=== PATIENT | female | born 1975 | race Caucasian/White ===

== ENCOUNTER 2022-10-15 07:36 | Outpatient (CLI) | payer BC, SELFPAY ==
--- NOTE | 2022-10-15 07:44 | MM_ITS ---
WS: [id number] Exam: [id number] Date/Time of Exam: 10/15/2022 8:02 AM Reason For Exam: SCREENING VIEWS: MLO and CC views both breasts. 3D digital tomosynthesis is also included in this exam. No prior exams. Findings: There was no sign of mass, architectural distortion or suspicious calcification in either breast. Th e breasts are fatty. MM/[place] [id number] Impression: BI-RADS: 1-Negative FOLLOW-UP: 1 Year Follow-up This mammogram was also analyzed by the Computer Aided Detection System R2 Imag e Crematory Attendant.
== END 2022-10-15 07:37 | disposition home or self-care (01) ==
LOC: RAD 07:37
PROVIDERS: PCP Physician Assistant; Visit Provider Physician Assistant
DX: Z12.31 Encounter for screening mammogram for malignant neoplasm of breast (principal)
CPT/HCPCS: 77063; 77067

== ENCOUNTER 2022-11-07 09:22 | Inpatient (IN) | payer BC, SELFPAY ==
[2022-11-07] VITALS (51 sets, daily range): BP systolic 121–167; BP diastolic 80–128; PULSE 0–113; RESP 13–32; TEMP 36.7; O2SAT 88–99; BMI 41.5
--- NOTE | 2022-11-07 09:31 | XACV_ITS ---
Exam Room: [place] [address] Ht: 170 cm Wt: 136 kg BSA: 2.61 m2 Gender: Female : 1975 Exam Priority: Routine Indication(s): - ST changes Procedure(s): Procedure Description: Diagnostic procedure Procedure Description: PCI procedure Procedure Description: Drug Eluting Coronary Stent Procedure Description: PTCA Procedure Description: Coronary Thrombectomy Procedure Description: Miscellaneous Procedure Description: ACT Procedure Description[facility]; Diagnostic Cath Status: Emergency PCI Status: Emergency PCI Indication: Immediate PCI for STEMI Interventional Findings * Percutaneous intervention left main was engaged with CLS guide with the help of run-through wire we were able to cross the lesion. Multiple balloon angioplasty using 2.0x15 Trek balloon was used despite of that were not able to open up the vessel. Pronto catheter was utilized for manual thrombectomy which remained unsuccessful, we then took penumbra CAT 6 which finally cleared the vessel from thrombus. 3.0 x 20 mm trek balloon was then used followed by a 4.0 x 22 mm [place] drug-eluting stent at nominal HARRY postdilated with 4.5 x 12 mm noncompliant Euphora balloon. Excellent angiographic result with LAUREN-3 flow was restored.. * IVUS was performed post stent deployment to assess apposition and optimization of the stent. Stent was noted to be well opposed. Conclusions 1. 46-year-old female presented with ST elevation MT of the anterior wall. She was taken to the Singing Telegram Performer. She was noted to have 100% ostial occluded LAD#1 Left main normal#2 100% ostial occluded LAD with LAUREN 0 flow#3 Left circumflex nondominant with luminal irregularities no significant stenosis#4 RCA is a dominant vessel with luminal irregularities without significant stenosis. Recommendations * Lifestyle modificationTobacco cessationObesity managementContinue dual antiplatelet therapy for at least 1 yearPatient will be started on guideline medical therapy for myocardial infarction over next 24 hours.. Interventional RX Recommendation: PCI w/o planned CABG Diagnostic RX Recommendation: PCI w/o planned CABG Anticoagulation: Heparin Pressures Phase:Rest AO : 156 / 122 ( 134 ) @ 10:52:00 AM 134 / 93 ( 117 ) @ 10:59:00 AM 118 / 101 ( 114 ) @ 11:17:00 AM 125 / 104 ( 114 ) @ 11:19:00 AM 118 / 105 ( 110 ) @ 11:24:00 AM 120 / 94 ( 105 ) @ 11:46:00 AM Clinical Evaluation EBL: 5mL-10mL Procedural Details Pre-Procedure Time Out. Identified patient by full name and date of as verbalized by the patient/guarantor. Does the consent match the physician's order: N/A Emergent; Informed Consent not obtained due to time critical life threat. Accurate & Complete Informed Consent: N/A Emergent; Informed Consent not obtained due to time critical life threat. Inpatient/Outpatient History & Physical on Chart: N/A Emergent; Informed Consent not obtained due to time critical life threat. If H&P is completed, is and addenduem needed: N/A Emergent; Informed Consent not obtained due to time critical life threat; If yes, is the addendum complete: N/A Emergent; Informed Consent not obtained due to time critical life threat. Visualize and Verify Site with Patient/Guarantor: N/A. Relevant Radiology Images available: N/A. Pre-op teaching completed and patient verbalized understanding. The risks, benefits, and alternatives of sedation and/or procedure were discussed by physician. The patient agrees to continue. Procedure started. [facility] Clinical Fraility Score: 3: Managing Well. Singing Telegram Performer Indications: Worsening Angina. Chest Pain Symptom Assessment: Typical Angina Symptoms. Correct patient, site and procedure confirmed by cath team. Correct patient, site and procedure confirmed by cath team. Current diagnosis: STEMI. PERRLA. Strong, equal hand creative guru bilaterally. Lungs clear x 5 lobes. IV Site on Arrival: 18 gauge in the left anticubital. IV Fluids: 0.9% NaCl at KVO. 0 mL infused prior to laborer hide house. Pre Procedural Pulses: right radial was 2+. Pre Procedural Pulses: bilateral dorsalis pedis was 2+. Oxygen started at 2liters/min via nasal canula. right groin was prepped with chloroprep then draped in the usual sterile fashion. right radial was prepped with chloroprep then draped in the usual sterile fashion. Physician notified. Baseline sample Acquired. HR: 77 BPM. Physician arrived. Physician scrubbed in. Immediate Pre-Procedure Time Out. Correct Patient: Yes; Correct Procedure: Yes; Correct Site: Yes; Correct Patient Position: Yes; Correct Supplies: Yes; Dried Flammable Prep: Yes; Blood Products Available: N/A;. Admit Source: Emergency department. Lidocaine 1% infiltrated to the right radial. Arterial access obtained. 6 tajik XB 3.5 guide catheter was inserted over the wire. AP Pads applied to patient chest. Multiple views taken of left coronary artery. Runthrough guidewire was advanced through the guide catheter to lesion in the prox LAD. Balloon inserted to lesion in the prox LAD. Inflation number : 1 A AB MINI TREK 2.00X15 RX BALLOON was prepped and advanced across the Prox LAD , then inflated to 12 HARRY for 0:16 seconds. Inflation number: 2 The AB MINI TREK 2.00X15 RX BALLOON was reinflated across the Prox LAD, to 20 HARRY for 0:16 seconds. Inflation number: 3 The AB MINI TREK 2.00X15 RX BALLOON was reinflated across the Prox LAD, to 20 HARRY for 0:15 seconds. Results checked. Balloon out. Manual thrombectomy catheter inserted over to the wire. Manual thrombectomy performed. Pronto aspiration catheter removed. Cat RX aspiration catheter inserted. Mechanical aspiration performed. Thrombectomy catheter removed over the wire. Results checked. ACT drawn. Results 314 seconds. Therapeutic limits - pre-heparin administration 90-150 seconds and monitoring heparin during a vascular procedure >250 seconds. Balloon inserted to lesion in the prox LAD. Inflation number : 4 A AB TREK 3.00X20 RX BALLOON was prepped and advanced across the Prox LAD , then inflated to 14 HARRY for 0:17 seconds. Inflation number: 5 The AB TREK 3.00X20 RX BALLOON was reinflated across the Prox LAD, to 14 HARRY for 0:14 seconds. Balloon out. Stent inserted to lesion in the prox LAD. Inflation Number : 6 A MDT R DEMI 4.0X22 SILVIA -Lot Number# [id number] Exp 01/01/2024 was prepped and advanced across the Prox LAD. The stent was deployed at 14 HARRY for 0:37 seconds. Stent balloon out over wire. Balloon inserted to lesion in the prox LAD. Inflation number : 7 A MDT NC EUPHORA RX 4.29G58MB BALLOON was prepped and advanced across the Prox LAD , then inflated to 10 HARRY for 0:06 seconds. Inflation number: 8 The MDT NC EUPHORA RX 4.06E34PM BALLOON was reinflated across the Prox LAD, to 14 HARRY for 0:17 seconds. Inflation number: 9 The MDT NC EUPHORA RX 4.23Z88VO BALLOON was reinflated across the Prox LAD, to 12 HARRY for 0:22 seconds. Inflation number: 10 The MDT NC EUPHORA RX 4.91F85MT BALLOON was reinflated across the Prox LAD, to 10 HARRY for 0:20 seconds. Balloon out. Results checked. IVUS catheter inserted. IVUS run performed to Prox LAD. IVUS catheter removed. Results checked. Results checked. Results checked. Runthrough wire removed. Exchange wire inserted. Guide catheter removed. A 5 tajik JR4 catheter in over wire. Exchange wire removed. Multiple views taken of right coronary artery. Catheter out. ACT drawn. Results 203 seconds. Therapeutic limits - pre-heparin administration 90-150 seconds and monitoring heparin during a vascular procedure >250 seconds. A 5 tajik Angled Pig catheter in over wire. Pigtail catheter removed d/t spasm. A TR Band was successful obtaining hemostatsis at the Right Radial artery insertion site. Post Procedure: Pulses reassessed and unchanged. PERRLA. Strong, equal hand creative guru bilaterally. No VTE prophylaxis required. Medication's Wasted: Lidocaine 1% = 1 mL. Medication's Wasted: Nitro = 49.6 mg. Medication's Wasted: Heparin = 3000 u. Medication's Wasted: Other = Cardene 24.5 mg. Total IV fluids: 102 mL. Post-op diagnosis: STEMI, Severe Ostial LAD occlusion. Complications: none. Estimated blood loss: 5mL-10mL. Responsiveness - Normal response to verbal stimuli; alert and oriented, PERRLA. Airway - Unaffected, no intervention required; spontaneous ventilation. Circulation: W/N/L, pulses unchanged. Nausea/Vomiting: No. Procedure completed. Patient transferred by wheelchair to ICU. Current Diagnosis : STEMI. PCI Indication : Immediate PCI for STEMI. Vital chart was stopped. Procedure started. Access Site Site: Right Radial artery Sheath Size: 6 Fr Hemostasis Method: TR Band Hemostasis Success: Successful Procedure Medications Start: 9:43 AM Stop: 9:43 AM Medication: Versed Amount: 2 mg Route: I.V. Start: 9:43 AM Stop: 9:43 AM Medication: Fentanyl Amount: 50 mcg Route: I.V. Start: 9:45 AM Stop: 9:45 AM Medication: Zofran (ondansetron) Amount: 4 mg Route: I.V. Start: 9:47 AM Stop: 9:47 AM Medication: Versed Amount: 1 mg Route: I.V. Start: 9:47 AM Stop: 9:47 AM Medication: Fentanyl Amount: 25 mcg Route: I.V. Start: 9:51 AM Stop: 9:51 AM Medication: Heparin Amount: 6000 units Route: I.V. Start: 9:56 AM Stop: 9:56 AM Medication: Versed Amount: 1 mg Route: I.V. Start: 9:56 AM Stop: 9:56 AM Medication: Fentanyl Amount: 25 mcg Route: I.V. Start: 10:07 AM Stop: 10:07 AM Medication: Versed Amount: 1 mg Route: I.V. Start: 10:18 AM Stop: 10:18 AM Medication: Aggrastat 12.5 mg/250 mL Amount: 70 ml Route: I.V. bolus Start: 10:18 AM Stop: 10:18 AM Medication: Aggrastat 12.5 mg/250 mL Amount: 25.2 ml/hr Route: I.V. drip Start: 10:29 AM Stop: 10:29 AM Medication: Versed Amount: 1 mg Route: I.V. Start: 10:40 AM Stop: 10:40 AM Medication: Fentanyl Amount: 25 mcg Route: I.V. Start: 10:41 AM Stop: 10:41 AM Medication: Cardene Amount: 500 mg Route: I.C. Start: 9:48 AM Stop: 9:48 AM Medication: Nitrogylcerin Amount: 200 mcg Route: I.A. Start: 10:44 AM Stop: 10:44 AM Medication: Nitrogylcerin Amount: 200 mcg Route: I.C. Start: 10:45 AM Stop: 10:45 AM Medication: Versed Amount: 1 mg Route: I.V. Start: 10:54 AM Stop: 10:54 AM Medication: Fentanyl Amount: 25 mcg Route: I.V. Start: 10:56 AM Stop: 10:56 AM Medication: Fentanyl Amount: 25 mcg Route: I.V. I, the attending physician, have reviewed and verified all procedure medications. Yes, all medications given per verbal order History/Risk Factors Hypertension: No Dyslipidemia: No Peripheral Arterial Disease (PAD): No Myocardial Infarction (MT): No Obesity: No Renal Disease: No Prior Interventions PCI: No CABG: No Valve Surgery: No Report Signatures Finalized by Kanu Encinas MD on 11/11/2022 11:22 PM
--- NOTE | 2022-11-07 09:35 | W.ED.CHESTPA ---
HPI - Chest Pain General: Chief Complaint: Chest Pain Stated Complaint: CP/STEMI Time Seen by Provider: 11/07/22 09:34 Source: patient Mode of arrival: ambulatory History of Present Illness: 46-year-old female presents emergency room via EMS with an acute ST elevation AZ. Medic had contacted us prior to arrival and had transmitted an EKG which showed an acute anterior AZ with ST elevation. On arrival patient still complaining of pain. Patient is a smoker is not diabetic does have a strong family history of coronary artery disease. Repeat EKG on arrival confirmed ST elevation correlated with the initial EKG done in the field. Patient was given Plavix heparin had already been given aspirin in the field. She was also started on nitro. Dr. Rosales was present as well as members of the Sociology Professor staff. Patient was transported emergently to the Sociology Professor for definitive care. MD complaint: chest pain Onset (ago): minute(s) (30-40) Timing of current episode: constant Prior episodes: No Onset: during rest Pain location: left chest Pain radiation: left arm Severity: severe Quality: aching and heaviness Relieving factors: nitroglycerin Exacerbating factors: nothing Associated symptoms: Reports abdominal pain, diaphoresis and dyspnea; Deny fever(s), leg edema, nausea, palpitations, sense of impending doom, syncope or vomiting Review of Systems Const: Reports: diaphoresis; Denies: fever(s) or chills ENMT: Denies: throat pain, ear or mastoid pain, nasal discharge or nasal congestion Card: Reports: chest pain; Denies: palpitations, irregular heart rhythm, edema, swelling of feet/ankles or syncope Resp: Reports: dyspnea GI: Reports: abdominal pain; Denies: nausea or vomiting : Denies: flank pain, difficulty voiding, dysuria, urinary frequency or urinary urgency Skin/Breast: Denies: rash or pruritus PFS ED PFSH: Social History (Updated 11/07/22 @ 12:15 by William Hilliard DO) Smoking and tobacco status: current every day smoker Physical Exam Const: GENERAL APPEARANCE: cooperative ORIENTATION/CONSCIOUSNESS: Yes awake, Yes oriented to person, Yes oriented to place and Yes oriented to time HENMT: COMMON NORMALS: normocephalic, atraumatic and hearing grossly normal bilaterally HEAD & SCALP: normocephalic and atraumatic Resp: COMMON NORMALS: normal respiratory effort, No retractions, No use of accessory muscles and clear to auscultation bilaterally AUSCULTATION: clear to auscultation bilaterally Cardio: COMMON NORMALS: regular rate, regular rhythm and No murmurs present (Cardio) RATE: regular rate RHYTHM: regular rhythm GI: COMMON NORMALS: Soft to palpation and No hepatosplenomegaly present AUSCULTATION: Yes normoactive bowel sounds PALPATION: Yes Soft to palpation, No Tenderness to palpation present (GI), No Guarding due to palpation present (GI) and Yes No hepatosplenomegaly present Extremity: COMMON NORMALS: normal to inspection, capillary refill normal, no clubbing, cyanosis or edema, no calf tenderness and no pedal edema Neuro: SENSORIUM/ORIENTATION: Yes oriented to person, Yes oriented to place and Yes oriented to time Skin: COMMON NORMALS: no rashes or lesions noted GENERAL SKIN EXAM: no rashes or lesions noted Course Vital Signs: Vital signs: Vital Signs Pulse Rate 68 11/07/22 11:05 Respiratory Rate 32 H 11/07/22 09:25 Blood Pressure 144/109 11/07/22 09:25 Pulse Oximetry 97 11/07/22 09:25 Oxygen Delivery Me thod 11/07/22 11:39 MDM - Chest Pain Medical Decision Making Acute anterior ST elevation AZ. Patient given heparin Plavix had already been given aspirin in the field given nitro and started on oxygen also gave her dose of morphine for relief of her pain. She was prepped emergently in the trauma bay and transferred directly to the Sociology Professor under the care of Dr. Rosales for definitive treatment. Lab Data Laboratory Results Troponin T Baseline Cancelled 11/07/22 09:15 Discharge Plan Discharge Patient Disposition: Admitted As Inpatient Clinical Impression: STEMI (ST elevation myocardial infarction) Condition: Stable Coding Level of Care Code ED Purifying Plant Operator for Joy Guardado
[2022-11-07] MEDS: heparin 5,000 unit/mL INJ 1 mL 4000 UNIT IVP (09:37)
[2022-11-07] MEDS: morphine 4 mg/mL SDV 1 mL IVP (09:38)
[2022-11-07] MEDS: ondansetron 2 mg/ML SDV 2 mL 4 MG IVP (09:39)
--- NOTE | 2022-11-07 09:43 | XRR_ITS ---
PROCEDURE INFORMATION: Exam: XR Chest Exam date and time: 11/07/2022 1:45 PM Age: 46 years old Clinical indication: Pain; Angina pectoris; Additional info: Chest pain TECHNIQUE: Imaging protocol: Radiologic exam of the chest. Views: 1 view. COMPARISON: No relevant prior studies available. FINDINGS: Lungs: Unremarkable. No consolidation. Pleural spaces: Unremarkable. No pleural effusion. No pneumothorax. Heart/Mediastinum: Mild cardiomegaly with enlarged vascular pedicle. Bones/joints: Unremarkable. XR/XR chest 1V portable [id number] IMPRESSION: Mild cardiomegaly. Otherwise, no acute findings.
--- NOTE | 2022-11-07 09:43 | ECG_ITS ---
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: : 1975 Requested By: William Echevarria Order Number: [id number] Reading MD: CLAIR JAMES Measurements Intervals [place] Rate: 112 P: 69 SD: 128 QRS: 2 QRSD: 89 T: 51 QT: 329 QTc: 451 Interpretive Statements SINUS TACHYCARDIA WITH OCCASIONAL VENTRICULAR PREMATURE COMPLEXES LOW QRS VOLTAGE IN PRECORDIAL LEADS [QRS DEFLECTION < 1.0 mV IN CHEST LEADS] POSSIBLE ANTERIOR MYOCARDIAL INFARCTION , OF INDETERMINATE AGE [30 ms Q WAVE IN V3/V4, OR R < 0.2 mV IN V4] INTERPRETATION BASED ON A DEFAULT AGE OF 40 YEARS No previous ECG available for comparison Electronically Signed On 11-07-2022 20:32:14 CDT by CLAIR JAMES [id number]
--- NOTE | 2022-11-07 09:58 | PC.NURSE ---
call received from lab regarding pt's blood chemistry is hydrolyzed. Informed lab that pt is in the lab support service tech, she stated she will notify the senior mobile solutions architect.
[2022-11-07] MEDS: tirofiban 5 MG/100 ML PREMIX 23.68 MG IV ×2 (11:15→15:50)
--- NOTE | 2022-11-07 11:16 | PM.HP ---
Providers/Chief Complaint Admitting Physician: Dr. Encinas Primary Care Provider: Yulisa De La Cruz Chief Complaint: CP/STEMI History of Present Illness Natacha Romano is a 46 year old female started having chest pain since 9 AM this morning when it hit her all of a sudden, she denies any prior chest pains. Past medical history is significant for obesity 25 years of continuous tobacco abuse and strong family history of coronary artery disease. From the field she was noted to have significant anterolateral ST elevation suggestive of acute coronary syndrome, she was loaded with 600 mg of Plavix in the ER and taken immediately to the Wrapper Leaf Inspector. She was noted to have 100% ostial occluded LAD. Large thrombus burden was noted, thrombectomy with the help of Pronto followed by penumbra catheter was performed. Multiple balloon angioplasty followed by 4.0 x 22 mm drug-eluting stent was placed. It was postdilated with a 4.5 x 12 mm noncompliant balloon at high atmosphere of 12, IVUS was used to confirm good apposition of the stent. Patient is being transferred to ICU in stable condition. Vitals/I&O/Wt Last Vital Signs Pulse 105 H 11/07/22 09:25 Resp 32 H 11/07/22 09:25 BP 144/109 11/07/22 09:25 Pulse Ox 97 11/07/22 09:25 O2 Del Method Nasal Cannula 11/07/22 09:25 Weight last 48 hrs Weight 290 lb Physical Exam Narrative: Alert awake oriented x3, moderate to severe distress because of chest pain Lungs clear to auscultate bilaterally Heart regular S1-S2 Abdomen soft nontender nondistended FINGERNAIL SCULPTOR grossly nonfocal Lower extremity without any A&P Assessment and plan (1) STEMI (ST elevation myocardial infarction): Status post PCI to 100% occluded ostial LAD with drug-eluting stent. We switch patient to Brilinta from tomorrow if cost is not the issue. Due to tortuosity of the subclavian vessel left ventriculography was not performed. Echocardiogram will be obtained to assess LV function. Over next 24 hours we will add beta-travon and MARY ELLEN inhibitor. For now continue aspirin statin and Plavix. Aggrastat to continue for next 8 hours be due to high thrombus burden. Lipid profile will be screened (2) Smoking: Advised quitting smoking patient has promised to quit (3) Obesity: Advise losing weight. Attestations Medical Necessity Statement*: I am expecting her stay to cross more than 2 midnights Coding Level of Care Code Acute Code for Chg Fwd Diagnoses STEMI (ST elevation myocardial infarction) I21.3 Smoking F17.200 Obesity E66.9
--- NOTE | 2022-11-07 11:36 | ECG_ITS ---
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: : 1975 Requested By: William Echevarria Order Number: [id number] Reading MD: CLAIR JAMES Measurements Intervals [place] Rate: 108 P: 47 MN: 124 QRS: -4 QRSD: 90 T: 63 QT: 340 QTc: 456 Interpretive Statements SINUS TACHYCARDIA WITH FREQUENT VENTRICULAR PREMATURE COMPLEXES ANTEROSEPTAL MYOCARDIAL INFARCTION , OF INDETERMINATE AGE [40+ ms Q WAVE IN V1-V4] No previous ECG available for comparison Electronically Signed On 11-07-2022 20:33:06 CDT by CLAIR JAMES [id number]
[2022-11-07 13:44] LABS: Basophils # 0.1 10^3/uL (0.0-0.1); Basophils % 0.4 %; Eosinophils % 0.2 %; Hematocrit 44.6 % (37.0-47.0); Lymphocytes # 2.6 10^3/uL (0.8-4.8); Lymphocytes % 13.2 %; Mean Corpuscular HGB Conc 33.6 g/dL (30.0-36.0); Mean Corpuscular Hemoglobin 33.2 pg (28.0-34.0); Mean Corpuscular Volume 98.7 fl (81-99); Mean Platelet Volume 9.8 fL (7.4-10.4); Monocytes % 5.4 %; Neutrophils # 15.54 10^3/uL (1.8-7.7); Neutrophils % 80.3 %; Nucleated Red Blood Cells % 0 %; Platelet Count 222 10^3/cmm (130-400); Red Blood Count 4.52 10^6/uL (4.1-5.3); Red Cell Distribution Width 14.5 % (12.1-15.1); White Blood Count 19.3 10^3/uL (4.0-10.0)
[2022-11-07 14:09] LABS: Partial Thromboplastin Time 33.2 SECONDS (23.9-36.7)
[2022-11-07 14:13] LABS: Alanine Aminotransferase 131 U/L (0-33); Albumin Level 3.6 g/dL (3.5-5.2); Alkaline Phosphatase 70 U/L (35-105); Anion Gap 16.8 (5-19); Aspartate Amino Transferase 656 U/L (0-32); Blood Urea Nitrogen 10 mg/dL (6-20); Calcium 8.9 mg/dL (8.5-10.5); Carbon Dioxide 22 mmol/L (22-29); Chloride 105 mmol/L (98-107); Creatinine Clr Calc Pharmacy 150.1514; Globulin 2.8 g/dL (1.3-4.6); Glomerular Filtration Rate 90.5 mL/min (90-130); Glucose 94 mg/dL (65-115); Magnesium 1.8 mg/dL (1.7-2.3); Osmolality Calculated 287 mOsm/kg (285-295); Potassium 4.8 mmol/L (3.5-5.1); Sodium 139 mmol/L (136-145); Total Bilirubin 0.4 mg/dL (0.15-1.2); Total Protein 6.4 g/dL (6.6-8.7)
--- NOTE | 2022-11-07 14:33 | USCV_ITS ---
JolieashishNatacha Age: 46 Gender: F : 1975 Exam Date: 11/07/2022 14:55 Ordering Phys: Kanu Encinas MD ([email or web address]) Technologist: Delonte Nguyen [place] [facility] [place]: stemi BP: 144 / 109 HR: 101 Rhythm: Sinus Technical Quality: Adequate MEASUREMENTS (Male / Female) Normal Values 2D ECHO LVOT Diameter 2.0 cm LV Ejection Fraction MOD 2C 49.7 % LV Ejection Fraction 2C AL 48.7 % LA Diameter 3.9 cm LA Width 3.2 cm LA Height 4.9 cm RA Width 3.0 cm RA Height 4.0 cm Aorta at Sinotubular Diameter 1.8 cm IVC Diameter 1.7 cm M-MODE Aortic Annulus Diameter 2.6 cm LA Ao Ratio MM 1.5 MV E Point Septal Separation 0.7 cm DOPPLER AV Peak Velocity 162.0 cm/s LVOT Peak Velocity 111.0 cm/s AV Area Cont Eq vti 2.8 cm squared AV Area Cont Eq pk 2.2 cm squared MV Peak Velocity 79.0 cm/s MV Area PHT 9.6 cm squared Mitral E to A Ratio 0.9 MV E' Velocity 29.5 cm/s Mitral E to MV E' Ratio 8.9 Mitral E to LV E' Lateral Ratio 7.8 Mitral E to LV E' Septal Ratio 10.3 Right Atrial Pressure 3.0 mmHg PV Peak Velocity 75.0 cm/s RV Acceleration Time 0.1 s RV Ejection Time 0.3 s RV AcT/ET 0.4 FINDINGS Left Ventricle Moderately increased left ventricular cavity size. Severely decreased left ventricular systolic function. Left ventricular ejection fraction is estimated at 35 %. There is anterior septal and apical wall akinesis. Right Ventricle The right ventricle is normal in size and function. Right Atrium The right atrium is normal in size. Left Atrium The left atrium is normal in size. Mitral Valve Structurally normal mitral valve without significant stenosis or prolapse. There is no mitral regurgitation. Aortic Valve Structurally normal aortic valve without significant sclerosis or stenosis. There is no aortic regurgitation. Tricuspid Valve Structurally normal tricuspid valve without significant stenosis or regurgitation. Pulmonary artery systolic pressure is normal. Pulmonic Valve Structurally normal pulmonic valve without significant stenosis. There is no pulmonic regurgitation. Pericardium Normal pericardium without effusion. Aorta Normal ascending aorta dimension. IVC The inferior vena cava appears normal. CONCLUSIONS 1-Moderately increased left ventricular cavity size. Severely decreased left ventricular systolic function. Left ventricular ejection fraction is estimated at 35 %. There is anterior septal and apical wall akinesis. 2-No significant valve abnormalities. 3-There is no pericardial effusion. 4-Right atrial pressure is around 5 mm of mercury. 5-There are no prior echocardiogram studies to compare. Kanu Encinas MD (Electronically Signed) Final Date: 07 November 2022 20:27 S
[2022-11-07 14:39] LABS: Troponin T (5th) Once 19614 ng/L (0-10)
--- NOTE | 2022-11-07 15:43 | ECG_ITS ---
[facility] Test Date: 2022-11-07 Pat Name: Natacha Romano Department: Room: ICU06 Gender: Female Personal Care Aide: : 1975 Requested By: William Echevarria Order Number: [id number] Reading MD: CLAIR JAMES Measurements Intervals [place] Rate: 99 P: 22 TN: 121 QRS: -10 QRSD: 96 T: 74 QT: 345 QTc: 444 Interpretive Statements SINUS RHYTHM WITH FREQUENT VENTRICULAR PREMATURE COMPLEXES POSSIBLE ANTERIOR MYOCARDIAL INFARCTION , OF INDETERMINATE AGE [30 ms Q WAVE IN V3/V4, OR R < 0.2 mV IN V4] Compared to ECG 11/07/2022 11:36:41 Sinus tachycardia no longer present Myocardial infarct finding still present Electronically Signed On 11-07-2022 20:32:58 CDT by CLAIR JAMES [id number]
[2022-11-07] MEDS: perflutren protein-a microsphr 0.22 mg/mL SDV 3 mL IV (16:07)
[2022-11-07 16:29] LABS: Lactate (Lactic Acid level) 1.5 mmol/L (0.5-2.2)
[2022-11-07] MEDS: acetaminophen 325 mg Tablet 650 MG PO (17:04)
--- NOTE | 2022-11-07 17:32 | PC.NURSE ---
Patient arrived to ICU at approximately 1330. Aggrastat to be turned off at 2030.
[2022-11-07] MEDS: temazepam 15 mg Capsule PO (21:29)
[2022-11-07] MEDS: HYDROcodone-acetaminophen 5-325 mg Tablet 1 TAB PO (21:41)
[2022-11-08] VITALS (87 sets, daily range): BP systolic 101–178; BP diastolic 69–135; PULSE 0–107; RESP 8–30; TEMP 36.8–37.1; O2SAT 91–98
[2022-11-08 03:11] LABS: Basophils # 0.1 10^3/uL (0.0-0.1); Basophils % 0.4 %; Eosinophils # 0.1 10^3/uL (0.0-0.8); Eosinophils % 0.6 %; Hematocrit 42.3 % (37.0-47.0); Lymphocytes # 3.6 10^3/uL (0.8-4.8); Lymphocytes % 26.3 %; Mean Corpuscular HGB Conc 33.1 g/dL (30.0-36.0); Mean Corpuscular Hemoglobin 32.4 pg (28.0-34.0); Mean Corpuscular Volume 97.9 fl (81-99); Mean Platelet Volume 10.1 fL (7.4-10.4); Monocytes # 0.7 10^3/uL (0.2-0.9); Monocytes % 5.1 %; Neutrophils # 9.18 10^3/uL (1.8-7.7); Neutrophils % 67.3 %; Nucleated Red Blood Cells % 0 %; Platelet Count 215 10^3/cmm (130-400); Red Blood Count 4.32 10^6/uL (4.1-5.3); Red Cell Distribution Width 14.4 % (12.1-15.1); White Blood Count 13.6 10^3/uL (4.0-10.0)
[2022-11-08 03:33] LABS: Anion Gap 15.3 (5-19); Blood Urea Nitrogen 12 mg/dL (6-20); Calcium 8.6 mg/dL (8.5-10.5); Carbon Dioxide 22 mmol/L (22-29); Chloride 103 mmol/L (98-107); Creatinine Clr Calc Pharmacy 150.1514; Glomerular Filtration Rate 90.5 mL/min (90-130); Glucose 103 mg/dL (65-115); Osmolality Calculated 282 mOsm/kg (285-295); Potassium 4.3 mmol/L (3.5-5.1); Sodium 136 mmol/L (136-145)
[2022-11-08] MEDS: aspirin 81 mg EC Tablet PO (08:30)
[2022-11-08] MEDS: clopidogrel 75 mg Tablet PO (08:30)
[2022-11-08] MEDS: lisinopril 2.5 mg Tablet PO (09:49)
[2022-11-08] MEDS: carvedilol 3.125 mg Tablet PO ×2 (09:49→17:18)
--- NOTE | 2022-11-08 11:30 | P.PN_ITS ---
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 Patient is on Plavix will continue same 5 mg of Plavix. Patient will check with pharmacy and insurance whether she can afford Brilinta or not. Will add carvedilol and MARY ELLEN inhibitor. Will switch to Entresto before discharge. Echocardiogram showed left ventricular ejection fraction severely depressed between 30 to 35%. I will recommend LifeVest for 3 months. After optimization of medicine will review heart function to see whether she needs defibrillator or her heart function improves (2) Smoking: Patient says she has quit smoking (3) Obesity: Advised to lose weight (4) CHF (congestive heart failure), NYHA class II: Patient is an compensated state of new onset of systolic heart failure we will optimize medications with carvedilol and Entresto. Attestations Medical Necessity Statement*: I am expecting her stay to cross more than 2 midnights Coding Level of Care Code Acute Code for [facility] Diagnoses STEMI (ST elevation myocardial infarction) I21.3 Smoking F17.200 Obesity E66.9 CHF (congestive heart failure), NYHA class II I50.9
[2022-11-08] MEDS: sacubitril/valsartan 24-26 mg Tablet 1 EACH PO (17:18)
[2022-11-09] VITALS (57 sets, daily range): BP systolic 88–156; BP diastolic 60–103; PULSE 64–106; RESP 14–28; TEMP 36.8; O2SAT 76–100
[2022-11-09] MEDS: carvedilol 3.125 mg Tablet PO (08:36)
[2022-11-09] MEDS: clopidogrel 75 mg Tablet PO (08:36)
[2022-11-09] MEDS: aspirin 81 mg EC Tablet PO (08:36)
[2022-11-09] MEDS: sacubitril/valsartan 24-26 mg Tablet 1 EACH PO (08:36)
--- NOTE | 2022-11-09 10:18 | P.DS_ITS ---
Discharge Providers Date of Admission: 11/07/22 12:47 Date of Discharge: November 09, 2022 Attending Provider at Admission: Kanu Encinas MD Attending Provider at Discharge: Kanu Encinas MD Primary Care Provider: Yulisa De La Cruz Diagnoses at Discharge Discharge Diagnosis (1) STEMI (ST elevation myocardial infarction): Details from hospital stay: Status post thrombectomy balloon angioplasty and PCI to ostial LAD with excellent angiographic result, patient tolerated procedure well and recovered without any complication. Echocardiogram was performed left ventricle ejection fraction was less than 35%. She was started on guideline medical therapy for heart failure and myocardial infarction. Today she is moving around without any difficulty. She is stable vital rivera. She will be going home. We will follow him up in cardiology clinic in 1 week with Ms. Samra Ernandez and Dr. Jackman in 4 to 6 weeks. Patient has ischemic cardiomyopathy with severely depressed ejection fraction 35%. For primary prevention she was recommended LifeVest for 90 days Status: Acute (2) Smoking: Details from hospital stay: Patient has advised to quit smoking Status: Acute (3) Obesity: Details from hospital stay: Advised to lose weight. Status: Acute (4) CHF (congestive heart failure), NYHA class II: Details from hospital stay: Started on carvedilol Entresto and Lasix. Status: Acute Reason for Visit Reason for Visit: CP/STEMI Physical Exam Narrative: Alert awake oriented x3 No JVD sinuses icterus Heart regular S1-S2 Abdomen soft nontender nondistended She has grossly nonfocal Lower extremity trace edema Discharge Data Studies Completed and Pending Completed Studies During Hospitalization Category Date Time Status XR chest 1V portable [id number] Stat Exams 11/07/22 09:43 Completed CV. echo wo/w contrast [id number] Routine Ultrasound 11/07/22 14:33 Completed Pending at discharge Category Date Time Status RESPIRATORY THERAPY DIRECTOR request for service Stat Exams 11/07/22 09:31 Taken Radiology Impressions Chest X-Ray 11/07/22 09:43 IMPRESSION: Mild cardiomegaly. Otherwise, no acute findings. Laboratory Results WBC 13.6 10^3/uL (4.0-10.0) H 11/08/22 02:39 RBC 4.32 10^6/uL (4.1-5.3) 11/08/22 02:39 Hgb 14.0 g/dL (11.5-15.3) 11/08/22 02:39 Hct 42.3 % (37.0-47.0) 11/08/22 02:39 MCV 97.9 fl (81-99) 11/08/22 02:39 MCH 32.4 pg (28.0-34.0) 11/08/22 02:39 MCHC 33.1 g/dL (30.0-36.0) 11/08/22 02:39 RDW 14.4 % (12.1-15.1) 11/08/22 02:39 Plt Count 215 10^3/cmm (130-400) 11/08/22 02:39 MPV 10.1 fL (7.4-10.4) 11/08/22 02:39 Neut % (Auto) 67.3 % 11/08/22 02:39 Lymph % (Auto) 26.3 % 11/08/22 02:39 [place] % (Auto) 5.1 % 11/08/22 02:39 Eos % (Auto) 0.6 % 11/08/22 02:39 Baso % (Auto) 0.4 % 11/08/22 02:39 Neut # (Auto) 9.18 10^3/uL (1.8-7.7) H 11/08/22 02:39 Lymph # (Auto) 3.6 10^3/uL (0.8-4.8) 11/08/22 02:39 [place] # (Auto) 0.7 10^3/uL (0.2-0.9) 11/08/22 02:39 Eos # (Auto) 0.1 10^3/uL (0.0-0.8) 11/08/22 02:39 Baso # (Auto) 0.1 10^3/uL (0.0-0.1) 11/08/22 02:39 Nucleated RBC % (auto) 0 % 11/08/22 02:39 Nucleated RBCs # 0.0 /100WBC 11/08/22 02:39 APTT 33.2 SECONDS (23.9-36.7) 11/07/22 13:34 Sodium 136 mmol/L (136-145) 11/08/22 02:39 Potassium 4.3 mmol/L (3.5-5.1) 11/08/22 02:39 Chloride 103 mmol/L (98-107) 11/08/22 02:39 Carbon Dioxide 22 mmol/L (22-29) 11/08/22 02:39 Anion Gap 15.3 (5-19) 11/08/22 02:39 BUN 12 mg/dL (6-20) 11/08/22 02:39 Creatinine 0.7 mg/dL (0.5-0.9) 11/08/22 02:39 GFR Calculation 90.5 mL/min (90-130) 11/08/22 02:39 Glucose 103 mg/dL (65-115) 11/08/22 02:39 Calculated Osmolality 282 mOsm/kg (285-295) L 11/08/22 02:39 Lactate 1.5 mmol/L (0.5-2.2) 11/07/22 16:00 Calcium 8.6 mg/dL (8.5-10.5) 11/08/22 02:39 Magnesium 1.8 mg/dL (1.7-2.3) 11/07/22 13:34 Total Bilirubin 0.4 mg/dL (0.15-1.2) 11/07/22 13:34 AST 656 U/L (0-32) H 11/07/22 13:34 ALT 131 U/L (0-33) H 11/07/22 13:34 Alkaline Phosphatase 70 U/L (35-105) 11/07/22 13:34 Troponin T Gen 5 ng/L 01136 ng/L (0-10) H* 11/07/22 13:34 Troponin T Baseline Cancelled 11/07/22 09:15 Total Protein 6.4 g/dL (6.6-8.7) L 11/07/22 13:34 Albumin 3.6 g/dL (3.5-5.2) 11/07/22 13:34 Globulin 2.8 g/dL (1.3-4.6) 11/07/22 13:34 Vitals Last Vital Signs Temp 98.2 F 11/08/22 04:00 Pulse 106 H 11/09/22 09:15 Resp 19 H 11/09/22 09:15 BP 156/103 11/09/22 09:15 Pulse Ox 97 11/09/22 09:15 O2 Del Method 11/08/22 14:24 Discharge Plan Discharge Patient Disposition: Home Condition: Stable Prescriptions: New clopidogrel 75 mg Tablet 75 mg PO DAILY Qty: 90 4RF carvedilol 3.125 mg Tablet 6.25 mg PO BID Qty: 60 4RF aspirin 81 mg Tablet,Delayed Release (Dr/Ec) 81 mg PO DAILY Qty: 90 4RF Entresto 24-26 mg Tablet 1 ea PO BID 30 Days Qty: 60 4RF simvastatin [Zocor] 40 mg tablet 40 mg PO QPM Qty: 30 5RF furosemide [Lasix] 20 mg tablet 20 mg PO QAM Qty: 60 4RF No Action No Known Home Medications Discharge Orders: Discharge Order (Routine); Ordered 11/09/22 Ordered By: Kanu Encinas Referrals: Yulisa De La Cruz PA [Primary Care Provider] - Discharge Diet: Low Cholesterol and Low Fat Discharge Activity: Increase activity as tolerated and Return to work/school after cleared by PCP/Specialist Patient Instructions: Coronary Angioplasty (DC), Opioid Safety Activity Restrictions/Additional Instructions: Patient can return to work without restriction in 2 weeks. Follow-up with cardiology nurse practitioner Ms. Samra Ernandez in 10 days. Follow-up with Dr. Jackman in 8 weeks. Keep log of blood pressure pulse daily weight. If you gain more than 3 pound in 2 consecutive days take extra furosemide that is water pill Discharge Attestations Time Spent in Discharge Care*: greater than 30 min Quality Metrics Clinical Quality Measures [ Acute Myocardial Infaction { Clinical Trial Participant: No; Contraindication to aspirin: None; Aspirin prescribed; Contraindication to statin: None; Statin prescribed; Contraindication to PCI: None; PCI performed;}] Coding Level of Care Code Critical Care >/= 30 minutes Diagnoses STEMI (ST elevation myocardial infarction) I21.3 Smoking F17.200 Obesity E66.9 CHF (congestive heart failure), NYHA class II I50.9 Time Spent (min) 40
--- NOTE | 2022-11-09 14:39 | PC.NURSE ---
All discharge instructions given to patients, follow up appointments made, all medications sent to pharmacy of preference. IV's removed. Patient verbalized discharge instructions. No further questions. Patient ambulated to main exit with significant other. Lifevest to be placed at home of patient this evening. Address given to photofinishing laboratory worker nurse
== END 2022-11-09 14:30 | disposition home or self-care (01) | DRG 247 ==
LOC: ER 10:06 → CCL 11:07 → ICU 12:47
PROVIDERS: Admitting Provider Internal Medicine Cardiovascular Disease; Emergency Provider Family Medicine; PCP Physician Assistant; Visit Provider Internal Medicine Cardiovascular Disease
PROC: 027034Z Dilation of Coronary Artery, One Artery with Drug-eluting Intraluminal Device, Percutaneous Approach (ICD-10-PCS; principal; 2022-11-07 09:00)
PROC: 027034Z Dilation of Coronary Artery, One Artery with Drug-eluting Intraluminal Device, Percutaneous Approach (ICD-10-PCS; 2022-11-07 09:00)
DX: I21.02 ST elevation (STEMI) myocardial infarction involving left anterior descending coronary artery (principal); Z68.41 Body mass index [BMI] 40.0-44.9, adult; I50.22 Chronic systolic (congestive) heart failure; I25.5 Ischemic cardiomyopathy; F17.200 Nicotine dependence, unspecified, uncomplicated; E66.9 Obesity, unspecified; Z82.49 Family history of ischemic heart disease and other diseases of the circulatory system
CPT/HCPCS: 36415; 71045; 80048; 80053; 83605; 83735; 84484; 85025; 85347; 85730; 92973; 92978; 93005; 93454; 94660; 96365; 96366; 96375; 99152; 99153; 99291; C1725; C1753; C1757; C1769; C1874; C1887; C1894; C8929; C9600; J0461; J1644; J2250; J2270; J2405; J3010; J3490; Q9956; Q9967

== ENCOUNTER 2022-12-04 11:55 | Outpatient (CLI) | payer BC, SELFPAY ==
[2022-12-04 13:49] LABS: Anion Gap 16.6 (5-19); Blood Urea Nitrogen 12 mg/dL (6-20); Calcium 9.1 mg/dL (8.5-10.5); Carbon Dioxide 23 mmol/L (22-29); Chloride 105 mmol/L (98-107); Glomerular Filtration Rate 90.1 mL/min (90-130); Glucose 100 mg/dL (65-115); NT Pro B Type Natriuretic Pept 1718 pg/mL (0-125); Osmolality Calculated 290 mOsm/kg (285-295); Potassium 4.6 mmol/L (3.5-5.1); Sodium 140 mmol/L (136-145)
== END 2022-12-04 11:56 | disposition home or self-care (01) ==
LOC: LAB 11:57
PROVIDERS: PCP Physician Assistant; Visit Provider Nurse Practitioner Family
DX: I50.9 Heart failure, unspecified (principal)
CPT/HCPCS: 36415; 80048; 83880

== ENCOUNTER 2022-12-13 06:04 | Outpatient (CLI) | payer BC, SELFPAY ==
--- NOTE | 2022-12-13 06:30 | USCV_ITS ---
Natacha Romano Age: 47 Gender: F : 1975 Exam Date: 12/13/2022 06:21 Ordering Phys: Samra Ernandez Technologist: BECKY Exam Location: [facility] [place] Indication: Claudication Risk Factors: Previous Vascular Surgery: RIGHT LEFT BP: 96.00 / 61.00 BP: 114.0/ 67.00 0 Waveform Velocity (cm/s) Velocity (cm/s) Waveform Triphasic 96.7 Iliac Prox 108.5 Triphasic Triphasic 98.7 Iliac Mid 100.4 Triphasic Triphasic Iliac Distal Triphasic 100.1 73.3 Triphasic 107.1 HARD TILE SETTER APPRENTICE 84.6 Triphasic Triphasic 94.9 SFA Prox 79.5 Triphasic Triphasic 89.8 SFA Mid 55.5 Triphasic Triphasic 64.8 SFA Dist 67.5 Triphasic Triphasic 50.5 POP 53.0 Triphasic Triphasic 56.9 CLOTHING SUPERVISOR 72.6 Triphasic Biphasic 45.7 DPA 81.2 Triphasic 1.0 RODRÍGUEZ 1.0 FINDINGS The B-mode examination revealed no unstable plaques or stenotic lesions. Normal Doppler flow velocities Normal Doppler waveforms Resting RODRÍGUEZ 1.0 bilaterally CONCLUSIONS #1. Normal resting ABIs of 1.0 bilaterally. #2. No unstable plaques or stenotic lesions were noted No evidence of any significant arterial obstruction, based on the above findings. Dr Iban Olivo MD [facility] (Electronically Signed) Final Date: 15 December 2022 14:00 S
== END 2022-12-13 06:05 | disposition home or self-care (01) ==
LOC: RAD 06:05
PROVIDERS: PCP Physician Assistant; Visit Provider Nurse Practitioner Family
DX: I21.3 ST elevation (STEMI) myocardial infarction of unspecified site (principal); I73.9 Peripheral vascular disease, unspecified
CPT/HCPCS: 80048; 83880; 93925

== ENCOUNTER 2023-02-11 10:10 | Outpatient (CLI) | payer BC, SELFPAY ==
--- NOTE | 2023-02-11 11:00 | USCV_ITS ---
Natacha Romano Age: 47 Gender: F : 1975 Exam Date: 02/11/2023 10:45 Ordering Phys: Samra Ernandez Technologist: Morro Glez Exam Location: [facility] [place] Indication: post stent 3 months BP: 126 / 72 HR: 87 Rhythm: Sinus Technical Quality: Adequate MEASUREMENTS (Male / Female) Normal Values 2D ECHO LV Diastolic Diameter PLAX 3.2 cm 4.2 - 5.9 / 3.9 - 5.3 cm LV Systolic Diameter PLAX 2.8 cm IVS Diastolic Thickness 1.4 cm 0.6 - 1.0 / 0.6 - 0.9 cm IVS Systolic Thickness 1.6 cm LVPW Diastolic Thickness 1.3 cm 0.6 - 1.0 / 0.6 - 0.9 cm LVPW Systolic Thickness 1.6 cm LVOT Diameter 2.1 cm LV Ejection Fraction 2D Teich 13.8 % LV Ejection Fraction MOD 2C 39.6 % LV Ejection Fraction 2C AL 38.6 % LA Diameter 3.9 cm M-MODE Aortic Annulus Diameter 3.4 cm LA Ao Ratio MM 1.1 MV E Point Septal Separation 0.9 cm FINDINGS Left Ventricle Right Ventricle Right Atrium Left Atrium Mitral Valve Aortic Valve Tricuspid Valve Pulmonic Valve Pericardium Aorta IVC CONCLUSIONS This is a limited echocardiogram performed to assess LV systolic unction. LV systolic function is moderately reduced with EF of 35 to 40%. Accurate assessment of regional wall motion normalities is not possible because of limited visualization. Baltazar Jackman MD (Electronically Signed) Final Date: 16 February 2023 15:14 S
== END 2023-02-11 10:11 | disposition home or self-care (01) ==
PROVIDERS: PCP Physician Assistant; Visit Provider Nurse Practitioner Family
DX: I50.9 Heart failure, unspecified (principal); I21.3 ST elevation (STEMI) myocardial infarction of unspecified site; Z95.5 Presence of coronary angioplasty implant and graft
CPT/HCPCS: 93308

== ENCOUNTER 2023-07-01 18:34 | Emergency (ER) | payer BC, SELFPAY ==
--- NOTE | 2023-07-01 18:40 | ECG_ITS ---
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 Measurements Intervals [place] Rate: 72 P: 27 MI: 139 QRS: -14 QRSD: 85 T: 30 QT: 381 QTc: 419 Interpretive Statements SINUS RHYTHM LOW QRS VOLTAGE IN PRECORDIAL LEADS [QRS DEFLECTION < 1.0 mV IN CHEST LEADS] ANTEROSEPTAL MYOCARDIAL INFARCTION , OF INDETERMINATE AGE [40+ ms Q WAVE IN V1-V4] Compared to ECG 11/07/2022 16:39:01 Low QRS voltage now present Ventricular premature complex(es) no longer present Myocardial infarct finding still present Electronically Signed On 07-01-2023 19:04:55 CRANE CREW SUPERVISOR by Bre Fuller M.D. [id number]
[2023-07-01 18:42] VITALS: BP 150/99; PULSE 73; RESP 18; TEMP 36.5; O2SAT 94; BMI 43.8
--- NOTE | 2023-07-01 18:47 | XRR_ITS ---
PROCEDURE INFORMATION: Exam: XR Chest Exam date and time: 07/01/2023 6:57 PM Age: 47 years old Clinical indication: Pain; Chest pressure; Prior surgery; Surgery date: 6+ months; Surgery type: Cardiac stent; Additional info: Chest pain TECHNIQUE: Imaging protocol: Radiologic exam of the chest. Views: 1 view. COMPARISON: CR XR chest 1V portable [id number] 11/07/2022 1:45 PM FINDINGS: Lungs: Unremarkable. No consolidation. Pleural spaces: Unremarkable. No pleural effusion. No pneumothorax. Heart/Mediastinum: Unremarkable. No cardiomegaly. Bones/joints: Unremarkable. XR/XR chest 1V portable [id number] IMPRESSION: No acute findings.
--- NOTE | 2023-07-01 19:01 | W.ED.CHESTPA ---
HPI - Chest Pain General: Chief Complaint: Chest Pain Stated Complaint: Sob\Chest Pains Time Seen by Provider: 07/01/23 18:42 History of Present Illness: Patient presents to the ER with complaints of chest pain/pressure midsternal for the last couple days. Patient states she has been exerting herself last several days as well. Patient has a history of [place] with stent placed earlier this year and is on anticoagulation of Plavix. Patient has been taking her medicine and has not missed any doses. Patient has not complained of any shortness of breath, nausea vomiting, diaphoresis etc. This pain is intermittent. Review of Systems General: Reports: 10 or more systems reviewed and unremarkable except in HPI and below PFSH ED PFSH: Medical History STEMI (ST elevation myocardial infarction) Surgical History Presence of stent in LAD coronary artery Social History Smoking and tobacco/nicotine status: current every day tobacco/nicotine user Physical Exam Const: COMMON NORMALS: no acute distress, average body habitus, patient oriented x3, no limitations, healthy appearing, alert and well nourished HENMT: COMMON NORMALS: normocephalic, atraumatic, hearing grossly normal bilaterally, external ears normal, Normal external nose present, moist oral mucous membranes and oropharynx normal HEAD & SCALP: normocephalic and atraumatic NOSE: Normal external nose present EXTERNAL EAR: Yes external ears normal Neck/C-Spine: COMMON NORMALS: no JVD Chest: COMMONS NORMALS: normal inspection of the chest and normal palpation of entire chest wall Resp: COMMON NORMALS: normal respiratory effort, No retractions, No use of accessory muscles and clear to auscultation bilaterally AUSCULTATION: clear to auscultation bilaterally Cardio: COMMON NORMALS: no JVD, regular rate, regular rhythm, S1 normal heart sound present, S2 normal heart sound present, No gallops present (Cardio), No clicks present (Cardio), No murmurs present (Cardio) and No rub (Cardio) RATE: regular rate RHYTHM: regular rhythm HEART SOUNDS: S1 normal heart sound present and S2 normal heart sound present GI: COMMON NORMALS: Normal to inspection, nondistended, normoactive bowel sounds present, Soft to palpation, non-tender, No hepatosplenomegaly present and no masses PALPATION: Yes Soft to palpation and Yes No hepatosplenomegaly present Neuro: COMMON NORMALS: patient oriented x3 SENSORIUM/ORIENTATION: Yes alert Course Vital Signs: Vital signs: Vital Signs Temperature 97.7 F 07/01/23 18:42 Pulse Rate 71 07/01/23 19:54 Respiratory Rate 22 H 07/01/23 19:54 Blood Pressure 116/85 07/01/23 19:54 Pulse Oximetry 97 07/01/23 19:54 Oxygen Delivery Me thod Room Air 07/01/23 18:42 MDM - Chest Pain Medical Decision Making Patient presents to the ER with complaints of chest pain. Patient does have a cardiac history. Patient was worked up in a standard cardiac fashion with serial lab work and EKGs, and chest x-ray. All of which was essentially benign. Patient was pain-free during this process. It is felt that the patient chest pain is not cardiac in nature. Patient be discharged home. Differential Diagnosis Unlikely acute massive pulmonary embolism, acute respiratory failure, acute myocardial infarction, cardiac arrest or sudden cardiac Medical Records I reviewed the patient's medical records. Lab Data I reviewed the patient's lab results. 07/01/23 18:59 07/01/23 18:59 Radiology Impressions Chest X-Ray 07/01/23 18:47 IMPRESSION: No acute findings. Laboratory Results WBC 10.17 10^3/uL (3.29-11.43) 07/01/23 18:59 RBC 4.15 10^6/uL (3.85-5.65) 07/01/23 18:59 Hgb 13.50 g/dL (11.27-16.99) 07/01/23 18:59 Hct 40.2 % (36-47) 07/01/23 18:59 MCV 96.9 fl (85-98) 07/01/23 18:59 MCH 32.5 pg (27-33) 07/01/23 18:59 MCHC 33.6 g/dL (30-55) 07/01/23 18:59 RDW 13.4 % (12.1-15.1) 07/01/23 18:59 Plt Count 243 10^3/cmm (157-399) 07/01/23 18:59 MPV 9.6 fL (7.4-10.4) 07/01/23 18:59 Neut % (Auto) 54.4 % 07/01/23 18:59 Lymph % (Auto) 34.4 % 07/01/23 18:59 [place] % (Auto) 8.6 % 07/01/23 18:59 Eos % (Auto) 1.7 % 07/01/23 18:59 Baso % (Auto) 0.6 % 07/01/23 18:59 Neut # (Auto) 5.54 10^3/uL (1.8-7.7) 07/01/23 18:59 Lymph # (Auto) 3.5 10^3/uL (0.8-4.8) 07/01/23 18:59 [place] # (Auto) 0.9 10^3/uL (0.2-0.9) 07/01/23 18:59 Eos # (Auto) 0.2 10^3/uL (0.0-0.8) 07/01/23 18:59 Baso # (Auto) 0.1 10^3/uL (0.0-0.1) 07/01/23 18:59 Nucleated RBC % (auto) 0 % 07/01/23 18:59 Nucleated RBCs # 0.0 /100WBC 07/01/23 18:59 Sodium 139 mmol/L (136-145) 07/01/23 18:59 Potassium 4.1 mmol/L (3.5-5.1) 07/01/23 18:59 Chloride 105 mmol/L (98-107) 07/01/23 18:59 Carbon Dioxide 23 mmol/L (22-29) 07/01/23 18:59 Anion Gap 15.1 (5-19) 07/01/23 18:59 BUN 16 mg/dL (6-20) 07/01/23 18:59 Creatinine 0.8 mg/dL (0.5-0.9) 07/01/23 18:59 GFR Calculation 77.2 mL/min (90-130) L 07/01/23 18:59 Glucose 105 mg/dL (65-115) 07/01/23 18:59 Calculated Osmolality 290 mOsm/kg (285-295) 07/01/23 18:59 Calcium 9.1 mg/dL (8.5-10.5) 07/01/23 18:59 Total Bilirubin 0.4 mg/dL (0.15-1.2) 07/01/23 18:59 AST 13 U/L (0-32) 07/01/23 18:59 ALT 13 U/L (0-33) 07/01/23 18:59 Alkaline Phosphatase 77 U/L (35-105) 07/01/23 18:59 Troponin T Baseline 7 ng/L (0-10) 07/01/23 18:59 Troponin T 120 Minute 6.00 ng/L (0-10) 07/01/23 20:38 Total Protein 6.8 g/dL (6.6-8.7) 07/01/23 18:59 Albumin 4.0 g/dL (3.5-5.2) 07/01/23 18:59 Globulin 2.8 g/dL (1.3-4.6) 07/01/23 18:59 All radiology interpretation(s) finalized by discharge EKG Data EKG 1: I personally reviewed and interpreted this EKG as follows: EKG interpretation date: 07/01/23 EKG interpretation time: 18:40 Prior EKG tracings: not available for review Interpretation: EKG showed ventricular rate 72 bpm, WA interval 139, QRS duration 85, QTc of 406, normal sinus rhythm, Q waves in V1 through V4 EKG 2: I personally reviewed and interpreted this EKG as follows: EKG interpretation date: 07/01/23 EKG interpretation time: 20:47 Prior EKG tracings: available for review Interpretation: EKG shows ventricular rate 66 bpm, WA interval 131, QRS duration 80, QTc of 413, sinus rhythm, Q waves in V1 through V4 Discharge Plan Discharge Patient Disposition: Home Clinical Impression: Atypical chest pain Condition: Stable Prescriptions: No Action Zocor 40 mg tablet 40 mg PO QPM Qty: 90 3RF clopidogrel 75 mg tablet 75 mg PO DAILY Qty: 90 3RF Lasix 20 mg tablet 20 mg PO QAM Qty: 60 4RF aspirin 81 mg tablet,delayed release (DR/EC) 81 mg PO DAILY Qty: 90 3RF sacubitril-valsartan 49-51 mg tablet 1 tab PO BID Qty: 180 1RF carvedilol 3.125 mg tablet 6.25 mg PO BID Qty: 180 2RF Discharge Orders: Discharge ED (Routine); Ordered 07/01/23 Ordered By: Elio Son Referrals: Yulisa De La Cruz PA [Primary Care Provider] - 7-10 days Patient Instructions: Chest Pain - Noncardiac Activity Restrictions/Additional Instructions: Your lab work done in ER did not reveal a cardiac cause of your chest pain. It is felt that his noncardiac in nature. If your chest pain worsens or changes please feel free to return to the ER for reevaluation. Please follow-up with your family practice physician within the next 7 to 10 days for further evaluation and treatment. Coding Level of Care Code ED Neighborhood Conservation Officer for Joy Guardado
[2023-07-01 19:13] LABS: Basophils # 0.1 10^3/uL (0.0-0.1); Basophils % 0.6 %; Eosinophils # 0.2 10^3/uL (0.0-0.8); Eosinophils % 1.7 %; Hematocrit 40.2 % (36-47); Lymphocytes # 3.5 10^3/uL (0.8-4.8); Lymphocytes % 34.4 %; Mean Corpuscular HGB Conc 33.6 g/dL (30-55); Mean Corpuscular Hemoglobin 32.5 pg (27-33); Mean Corpuscular Volume 96.9 fl (85-98); Mean Platelet Volume 9.6 fL (7.4-10.4); Monocytes # 0.9 10^3/uL (0.2-0.9); Monocytes % 8.6 %; Neutrophils # 5.54 10^3/uL (1.8-7.7); Neutrophils % 54.4 %; Nucleated Red Blood Cells % 0 %; Platelet Count 243 10^3/cmm (157-399); Red Blood Count 4.15 10^6/uL (3.85-5.65); Red Cell Distribution Width 13.4 % (12.1-15.1); White Blood Count 10.17 10^3/uL (3.29-11.43)
[2023-07-01 19:36] LABS: Troponin(5th) Baseline 7 ng/L (0-10)
[2023-07-01 19:39] LABS: Alanine Aminotransferase 13 U/L (0-33); Alkaline Phosphatase 77 U/L (35-105); Anion Gap 15.1 (5-19); Aspartate Amino Transferase 13 U/L (0-32); Blood Urea Nitrogen 16 mg/dL (6-20); Calcium 9.1 mg/dL (8.5-10.5); Carbon Dioxide 23 mmol/L (22-29); Chloride 105 mmol/L (98-107); Globulin 2.8 g/dL (1.3-4.6); Glomerular Filtration Rate 77.2 mL/min (90-130); Glucose 105 mg/dL (65-115); Osmolality Calculated 290 mOsm/kg (285-295); Potassium 4.1 mmol/L (3.5-5.1); Sodium 139 mmol/L (136-145); Total Bilirubin 0.4 mg/dL (0.15-1.2); Total Protein 6.8 g/dL (6.6-8.7)
[2023-07-01 19:54] VITALS: BP 116/85; PULSE 71; RESP 22; O2SAT 97
--- NOTE | 2023-07-01 20:47 | ECG_ITS ---
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 Measurements Intervals [place] Rate: 66 P: 41 [place]: 131 QRS: 58 QRSD: 80 T: 62 QT: 399 QTc: 421 Interpretive Statements SINUS RHYTHM LOW QRS VOLTAGE IN PRECORDIAL LEADS [QRS DEFLECTION < 1.0 mV IN CHEST LEADS] ANTEROSEPTAL MYOCARDIAL INFARCTION , OF INDETERMINATE AGE [40+ ms Q WAVE IN V1-V4] Compared to ECG 07/01/2023 18:40:56 No significant changes Electronically Signed On 07-01-2023 21:18:55 SINGER AND UNLOADER by Bre Fuller M.D. [id number]
[2023-07-01 21:40] VITALS: BP 115/81; PULSE 77; RESP 18; O2SAT 98
== END 2023-07-01 21:43 | disposition home or self-care (01) ==
PROVIDERS: Emergency Provider Emergency Medicine; PCP Physician Assistant
DX: R07.89 Other chest pain (principal); Z79.02 Long term (current) use of antithrombotics/antiplatelets; Z79.82 Long term (current) use of aspirin; I25.2 Old myocardial infarction; Z72.0 Tobacco use
CPT/HCPCS: 36415; 71045; 80053; 84484; 85025; 93005; 99285

== ENCOUNTER → 2023-12-06 08:47 | Outpatient (BNVA) | payer BC, SELFPAY | PROVIDERS: PCP Physician Assistant; Visit Provider Nurse Practitioner Family | DX: I50.9 Heart failure, unspecified (principal); I25.10 Atherosclerotic heart disease of native coronary artery without angina pectoris; I50.23 Acute on chronic systolic (congestive) heart failure | CPT/HCPCS: 36415; 80048; 83880 ==

== ENCOUNTER → 2023-12-06 09:20 | Outpatient (BNVA) | payer BC, SELFPAY | PROVIDERS: PCP Physician Assistant; Visit Provider Nurse Practitioner Family | DX: I50.9 Heart failure, unspecified (principal); I25.10 Atherosclerotic heart disease of native coronary artery without angina pectoris | CPT/HCPCS: 71046; 93005 ==

== ENCOUNTER 2023-12-10 06:30 | Outpatient (CLI) | payer BC, SELFPAY ==
--- NOTE | 2023-12-10 06:45 | USCV_ITS ---
Jolieashish Natacha Age: 48 Gender: F : 1975 Exam Date: 12/10/2023 06:44 Ordering Phys: Samra Ernandez Technologist: Exam Location: [facility] [place] Indication: hx of mi cad BP: 130 / 85 HR: 81 Rhythm: Sinus Technical Quality: Adequate MEASUREMENTS (Male / Female) Normal Values 2D ECHO LV Diastolic Diameter PLAX 4.8 cm 4.2 - 5.9 / 3.9 - 5.3 cm IVS Diastolic Thickness 1.5 cm 0.6 - 1.0 / 0.6 - 0.9 cm IVS Systolic Thickness 1.6 cm LVPW Diastolic Thickness 1.2 cm 0.6 - 1.0 / 0.6 - 0.9 cm LVPW Systolic Thickness 2.0 cm LV Ejection Fraction 2D Teich 37.6 % LV Ejection Fraction MOD 2C 50.5 % LV Ejection Fraction 2C AL 51.0 % RA Systolic Volume 4C AL 41.5 ml RA Systolic Volume 4C MOD 41.2 ml M-MODE LA Ao Ratio MM 1.7 AV Cusp Separation MM 2.1 cm DOPPLER AV Peak Velocity 101.0 cm/s MV Peak Velocity 85.0 cm/s MV Area PHT 4.0 cm squared Mitral E to A Ratio 0.9 TR Peak Velocity 148.0 cm/s TR Peak Gradient 8.8 mmHg TV Peak E Velocity 96.0 cm/s Right Atrial Pressure 3.0 mmHg Pulmonary Artery Systolic Pressu 11.8 mmHg PV Peak Velocity 95.0 cm/s FINDINGS Left Ventricle The examination is uninterpretable without echo contrast. With echo contrast the apical 2 chamber view is barely visible. The overall ejection fraction is probably close to normal. Wall motion disturbances cannot be determined. No Doppler M-mode is available. No diastolic function analysis is performed. Right Ventricle Right ventricle not well visualized. Right Atrium Right atrium not well visualized. Left Atrium Left atrium not well visualized. Mitral Valve Mitral valve not well visualized. Aortic Valve Aortic valve not well visualized. Tricuspid Valve Tricuspid valve not well visualized. Pulmonic Valve Pulmonic valve not well visualized. Pericardium No pericardial effusion. Aorta Aorta not well visualized. IVC Inferior vena cava not visualized. CONCLUSIONS The examination is uninterpretable without echo contrast. With echo contrast the apical 2 chamber view is barely visible. The overall ejection fraction is probably close to normal. Wall motion disturbances cannot be determined. No Doppler M-mode is available. No diastolic function analysis is performed. Previous study was done in January of last year. It was an equally poor study. There is probably not much change. Dr. Wilberto Banks MD (Electronically Signed) Final Date: 10 December 2023 09:17 S
[2023-12-10] MEDS: perflutren protein-a microsphr 0.22 mg/mL SDV 3 mL IV (07:27)
--- NOTE | 2023-12-10 07:30 | USCV_ITS ---
Natacha Romano Age: 48 Gender: F : 1975 Exam Date: 12/10/2023 07:15 Ordering Phys: Samra Ernandez Technologist: Exam Location: [facility] [place]_ Indication: pedal edema PROCEDURES: The venous duplex Doppler examination of both lower extremities was performed in the standard fashion. The following venous structures were evaluated: common femoral vein, profunda vein, proximal portion of the greater saphenous vein, superficial femoral vein, and the popliteal vein. In addition, the posterior tibial and peroneal trunk were evaluated. FINDINGS: Normal 2-D Doppler and augmentation and compressibility throughout the lower extremity venous structures. Additional imaging through the proximal calf veins also reveals no thrombus. Limited evaluation of the greater saphenous vein is patent with no thrombus. CONCLUSIONS No evidence of right lower extremity DVT. No evidence of left lower extremity DVT. Ashish Walker MD (Electronically Signed) Final Date: 10 December 2023 09:09 S
== END 2023-12-10 06:31 | disposition home or self-care (01) ==
PROVIDERS: PCP Physician Assistant; Visit Provider Nurse Practitioner Family
DX: I50.23 Acute on chronic systolic (congestive) heart failure
CPT/HCPCS: 93970; C8929; Q9956

== ENCOUNTER 2023-12-11 17:01 | Outpatient (CLI) | payer BC, SELFPAY ==
--- NOTE | 2023-12-11 17:30 | CT_ITS ---
WS: [id number] CTA OF THE CHEST WITH PULMONARY EMBOLISM PROTOCOL TECHNIQUE: High-resolution contrast enhanced CTA of the chest with coronal and sagittal reformatted i anabells with pulmonary embolism protocol. MIP images are also reviewed. CLINICAL INFORMATION: dyspnea at rest COMPARISON: None. DLP: 515.[address] scans at [facility] use at least one of these dose optimization techniques: automated e xposure control; mA and/or kV adjustment per patient size (includes targeted exams where dose is matc hed to clinical indication); or iterative reconstruction. FINDINGS: Proximal main pulmonary's are normal. Normal segmental and subsegmental pulmonary arteries. No eviden ce of pulmonary embolus. Normal caliber thoracic aorta. Apparent RIGHT subclavian artery. A few prominent subcarinal lymph nodes likely reactive. Normal vic hussein thoracic aorta. Coronary calcification. No axillary lymphadenopathy. Adrenal glands are normal. Cholelithiasis. Normal GE junction. Hypertrophic changes thoracic spine. L ungs are well aerated. IMPRESSION: 1. No evidence of pulmonary embolus. 2. Lungs are well aerated. No acute pulmonary infiltrates. 3. Cholelithiasis. 4. Few prominent subcarinal lymph nodes likely reactive. 5. Aberrant RIGHT subclavian artery.
[2023-12-11] MEDS: iohexol 350 mg/mL 500 mL Btl (per mL) IV (17:39)
== END 2023-12-11 17:02 | disposition home or self-care (01) ==
LOC: RAD 17:01
PROVIDERS: PCP Physician Assistant; Visit Provider Nurse Practitioner Family
DX: I50.23 Acute on chronic systolic (congestive) heart failure (principal); I25.10 Atherosclerotic heart disease of native coronary artery without angina pectoris; K80.20 Calculus of gallbladder without cholecystitis without obstruction
CPT/HCPCS: 71275; Q9967

== ENCOUNTER 2023-12-12 07:15 | Outpatient (CLI) | payer BC, SELFPAY ==
--- NOTE | 2023-12-12 | ECG_ITS ---
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 Interpretive Statements NAME OF STUDY: LEXISCAN SESTAMIBI STRESS TEST INDICATION: Worsening Dyspnea PROCEDURE: At the baseline, the EKG revealed normal sinus rhythm with a poor R wave progression. Features of old anteroseptal FL. Q waves in the high lateral leads suggestive of lateral wall FL. Low voltage complex in the limb leads. The baseline heart was 74 bpm with a blood pressue of 101/80 mm of Hg Lexiscan was infused over a period of 20 seconds. A total of 0.4 milligrams of Lexiscan was infused. The stress phase was continued for a total of 5 minutes. Heart rate at the end of the stress phase was 86 bpm with a blood pressure 108/73 mm of Hg. The EKG at the peak infusion revealed no significant changes. Sestamibi was injected 20 seconds after the Lexiscan infusion. Heart rate at the end of the recovery phase was 77 bpm with a blood pressure of 108/70 mm of Hg. CONCLUSION: 1. No significant EKG changes with the LexiScan infusion 2. No LexiScan induced chest pain or cardiac arrhythmia 3. Normal blood pressure and heart rate response 4. Sestamibi/sestamibi perfusion scan pending; see separate report. Electronically Signed On 12-23-2023 23:04:54 CDT by Iban Olivo M.D. [id number]
[2023-12-12 07:22] VITALS: BMI 48.6
--- NOTE | 2023-12-12 07:27 | NMCV_ITS ---
NM walker perf SPECT r/s* [id number] Natacha Romano Age: 48 Gender: F : 1975 Exam Date: 12/12/2023 07:56 Ordering Phys: Samra Ernandez Technologist: NEAL Mckeon Exam Location: [facility] Indications: ATHEROSCLEROTIC HEART DISEASE STRESS TEST Please see separate stress test report [facility] for full findings IMAGE PROTOCOL Rest/Stress 1 Lexiscan Day Radiopharmaceutical Dose (mCi) Administration Site Administered by Rest: Tc-99m 10.7 IV NEAL Argueta Sestamibi Stress:Tc-99m 32.8 IV NEAL Argueta Sestamibi Rest: 12-Dec-2023 60 Discovery 630 Stress: 12-Dec-2023 30 Discovery 630 0.4mg Lexiscan. Images obtained in supine and prone position. SPECT RESULTS Technical Quality: Excellent Raw Data Analysis: Normal Image Corrections: No attenuation or motion correction applied Summed Stress Score: 16 Summed Rest Score: 17 Summed Difference Score: 1 PERFUSION FINDINGS Moderate area of moderate to severely decreased tracer uptake involving all the apical segments and mid anterior wall region. Has a relative reversibility was noted in the apical inferior region FUNCTIONAL RESULTS (calculated via Gated SPECT) Stress Image LV EF (%): 42 Stress EDV (mL):149 TID: 0.95 Stress ESV (mL):87 FUNCTIONAL FINDINGS: Segmental wall motion analysis revealed moderate diffuse hypokinesia of the apical LV apex. IMPRESSIONS 1. Myocardial perfusion imaging revealing moderate area of moderate to severely decreased persistent tracer uptake involving all the apical segments and the mid anterior wall region with a subtle area of reversibility in the apical inferior region, suggesting myocardial scarring in the distribution of all the 3 coronary arteries with a very small area of valentin-infarction ischemia in the RCA/circumflex territory. 2. Diminished ejection fraction of 42%. 3. LV wall motion abnormality as mentioned above. 4. Mildly dilated LV cavity with end-systolic volume of 87ml. No similar previous studies are available for comparison Dr Iban Olivo MD [facility] (Electronically Signed) Final Date: 12 December 2023 11:03 S
[2023-12-12] MEDS: regadenoson 0.4 Mg/5 ml Syringe 0.400000000000000022 MG IVP (08:58)
[2023-12-12 09:03] VITALS: BP 108/62; PULSE 72
== END 2023-12-12 07:16 | disposition home or self-care (01) ==
PROVIDERS: PCP Physician Assistant; Visit Provider Nurse Practitioner Family
DX: R06.00 Dyspnea, unspecified (principal)
CPT/HCPCS: 36415; 78452; 93017; 96374; A9500; J2785

== ENCOUNTER 2023-12-21 09:36 | Inpatient (IN) | payer BC, SELFPAY ==
[2023-12-21] VITALS (14 sets, daily range): BP systolic 104–147; BP diastolic 59–110; PULSE 57–88; RESP 15–25; TEMP 36.3–36.4; O2SAT 95–99; BMI 47.0
--- NOTE | 2023-12-21 09:44 | XRR_ITS ---
PROCEDURE INFORMATION: Exam: XR Chest Exam date and time: 12/21/2023 9:54 AM Age: 48 years old Clinical indication: Shortness of breath; Patient HX: Chest pain, pain down left arm, SOB, fatigue x 1 month. Stent in heart, current smoker. TECHNIQUE: Imaging protocol: Radiologic exam of the chest. Views: 1 view. COMPARISON: 1. CT angio chest PE protcl [id number] 12/11/2023 5:29 PM 2. CR XR chest 1V portable [id number] 07/01/2023 6:57 PM FINDINGS: Lungs: No new focal infiltrates seen of the lungs. Pleural spaces: No large or obvious pneumothorax nor pleural effusion seen. Heart/Mediastinum: Stable heart size. Bones/joints: Degenerative changes spine. XR/XR chest 1V portable [id number] IMPRESSION: No acute findings seen of the chest.
--- NOTE | 2023-12-21 09:45 | ECG_ITS ---
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 Measurements Intervals [place] Rate: 85 P: 29 MD: 130 QRS: -5 QRSD: 90 T: 40 QT: 362 QTc: 432 Interpretive Statements SINUS RHYTHM WITH FREQUENT VENTRICULAR PREMATURE COMPLEXES LOW QRS VOLTAGE IN PRECORDIAL LEADS [QRS DEFLECTION < 1.0 mV IN CHEST LEADS] ANTEROSEPTAL MYOCARDIAL INFARCTION , PROBABLY OLD [40+ ms Q WAVE IN V1-V4] Compared to ECG 12/06/2023 09:28:49 Ventricular premature complex(es) now present Myocardial infarct finding still present Electronically Signed On 12-21-2023 19:34:56 CDT by Iban Olivo M.D. [id number] f
--- NOTE | 2023-12-21 09:46 | ED_ITS ---
HPI - Chest Pain 2 General: Chief Complaint: Chest Pain Stated Complaint: chest pain Time Seen by Provider: 12/21/23 09:38 History of Present Illness: 48-year-old female with a history of mor bid obesity, hypertension, hyperlipidemia and coronary artery disease status post stenting who presents the emergency room with chest pain and palpitations. She been having issues for some time and after quite a bit of testing she says her business continuity strategy director was going to take her back to the [place], however he is on vacation this week so they postponed it till next week. Her doctor placed her on some isosorbide this week which helped for some time. She says however over the last 24 hours pain has worsened and she has had worsening irregular heart rate. On presentation she is having frequent PVCs. She describes a pressure in her left chest and pain into her left shoulder. She has had some nausea. No vomiting. No abdominal pain. Review of Systems 2 Narrative: Constitutional symptoms: Negative except as documented in HPI. Skin symptoms: Negative except as documented in HPI. Eye symptoms: Negative except as documented in HPI. ENMT symptoms: Negative except as documented in HPI. Respiratory symptoms: Negative except as documented in HPI. Cardiovascular symptoms: Negative except as documented in HPI. Gastrointestinal symptoms: Negative except as documented in HPI. Genitourinary symptoms: Negative except as documented in HPI. Musculoskeletal symptoms: Negative except as documented in HPI. Neurologic symptoms: Negative except as documented in HPI. Psychiatric symptoms: Negative except as documented in HPI. Endocrine symptoms: Negative except as documented in HPI. PFSH ED 2 PFSH: Medical History (Updated 12/21/23 @ 10:37 by Selina Hassan MD) Coronary artery disease STEMI (ST elevation myocardial infarction) Surgical History Presence of stent in LAD coronary artery Social History Smoking and tobacco/nicotine status: current every day tobacco/nicotine user Physical Exam 2 Narrative: EXAM NARRATIVE: General: Alert, no acute distress. Skin: Warm, dry. Head: Normocephalic, atraumatic. Neck: Supple, trachea midline. Eye: Extraocular movements are intact. Ears, nose, mouth and throat: mucosa moist. Cardiovascular: Frequent PVCs, Normal peripheral perfusion. Respiratory: Lungs are clear to auscultation, respirations are non-labored, breath sounds are equal, Symmetrical chest wall expansion. Gastrointestinal: Soft, Nontender, Non distended, Normal bowel sounds. Musculoskeletal: Normal ROM, no deformity. Neurological: Alert and oriented, No focal neurological deficit observed. Psychiatric: Cooperative, appropriate mood & affect. Course 2 Vital Signs: Vital signs: Vital Signs Temperature 97.4 F L 12/21/23 09:37 Pulse Rate 85 12/21/23 10:00 Respiratory Rate 15 12/21/23 10:36 Blood Pressure 128/71 12/21/23 10:00 Pulse Oximetry 97 12/21/23 10:00 Oxygen Delivery Me thod Room Air 12/21/23 10:00 MDM - Chest Pain Medical Decision Making Differential diagnosis for patient with chest pain includes but is not limited to and based on the above HPI, review of systems and physical exam: Pneumonia. unstable angina. angina. Acute coronary syndrome / NE. Pulmonary embolism. Costochondritis / musculoskeletal. Pleurisy. Pericarditis. Esophageal spasm. Pancreatis. Cholecystitis. Workup: Lab work, chest X-ray and EKG ordered to evaluate, rule in and rule out above pathologies. Lab Review: Laboratory results were reviewed and interpreted by myself the emergency room physician. Lab work is unremarkable thus far. Her troponin is negative. Renal function is normal. White count is 8.8. EKG: Time 941 rate 85 normal sinus rhythm, No ST-T changes, very frequent PVCs, normal NJ & QRS intervals, This was reviewed and interpreted by myself the ER physician at 942. Chest x-ray: No acute process. No infiltrate. No pneumothorax. No cardiomegaly. This was reviewed and interpreted by myself the ER physician. Cardiac monitoring: This was ordered and reviewed by myself the emergency room physician. Patient has had frequent PVCs throughout her stay here. She has had episodes where she has been in bigeminy. Consultation: I spoke with Dr. Olivo with cardiology. He recommends magnesium daily, metoprolol 25 twice daily and holding carvedilol, and Lovenox. I reviewed the patient's medical record. Reexamination: Patient has slight improvement in her chest pain with morphine. Continues to have fairly frequent PVCs. No altered mental status. No focal motor deficits. We discussed admission and she agrees. Lab Data 12/21/23 09:49 12/21/23 09:49 Radiology Impressions Chest X-Ray 12/21/23 09:44 IMPRESSION: No acute findings seen of the chest. Laboratory Results WBC 8.84 10^3/uL (3.29-11.43) 12/21/23 09:49 RBC 4.37 10^6/uL (3.85-5.65) 12/21/23 09:49 Hgb 14.20 g/dL (11.27-16.99) 12/21/23 09:49 Hct 41.6 % (36-47) 12/21/23 09:49 MCV 95.2 fl (85-98) 12/21/23 09:49 MCH 32.5 pg (27-33) 12/21/23 09:49 MCHC 34.1 g/dL (30-55) 12/21/23 09:49 RDW 13.2 % (12.1-15.1) 12/21/23 09:49 Plt Count 266 10^3/cmm (157-399) 12/21/23 09:49 MPV 9.9 fL (7.4-10.4) 12/21/23 09:49 Neut % (Auto) 64.6 % 12/21/23 09:49 Lymph % (Auto) 27.7 % 12/21/23 09:49 [place] % (Auto) 5.1 % 12/21/23 09:49 Eos % (Auto) 1.7 % 12/21/23 09:49 Baso % (Auto) 0.6 % 12/21/23 09:49 Neut # (Auto) 5.71 10^3/uL (1.8-7.7) 12/21/23 09:49 Lymph # (Auto) 2.5 10^3/uL (0.8-4.8) 12/21/23 09:49 [place] # (Auto) 0.5 10^3/uL (0.2-0.9) 12/21/23 09:49 Eos # (Auto) 0.2 10^3/uL (0.0-0.8) 12/21/23 09:49 Baso # (Auto) 0.1 10^3/uL (0.0-0.1) 12/21/23 09:49 Nucleated RBC % (auto) 0 % 12/21/23 09:49 Nucleated RBCs # 0.0 /100WBC 12/21/23 09:49 Sodium 140 mmol/L (136-145) 12/21/23 09:49 Potassium 4.0 mmol/L (3.5-5.1) 12/21/23 09:49 Chloride 107 mmol/L (98-107) 12/21/23 09:49 Carbon Dioxide 21 mmol/L (22-29) L 12/21/23 09:49 Anion Gap 16.0 (5-19) 12/21/23 09:49 BUN 11 mg/dL (6-20) 12/21/23 09:49 Creatinine 0.7 mg/dL (0.5-0.9) 12/21/23 09:49 GFR Calculation 89.7 mL/min (90-130) L 12/21/23 09:49 Glucose 165 mg/dL (65-115) H 12/21/23 09:49 Calculated Osmolality 293 mOsm/kg (285-295) 12/21/23 09:49 Calcium 9.2 mg/dL (8.5-10.5) 12/21/23 09:49 Magnesium 1.7 mg/dL (1.7-2.3) 12/21/23 09:49 Total Bilirubin 0.3 mg/dL (0.15-1.2) 12/21/23 09:49 AST 16 U/L (0-32) 12/21/23 09:49 ALT 17 U/L (0-33) 12/21/23 09:49 Alkaline Phosphatase 80 U/L (35-105) 12/21/23 09:49 Troponin T Baseline < 6 ng/L (0-10) 12/21/23 09:49 Total Protein 6.7 g/dL (6.6-8.7) 12/21/23 09:49 Albumin 3.9 g/dL (3.5-5.2) 12/21/23 09:49 Globulin 2.8 g/dL (1.3-4.6) 12/21/23 09:49 TSH 1.27 uIU/mL (0.27-4.20) 12/21/23 09:49 Urine Color Colorless (Yellow) 12/21/23 10:18 Urine Appearance Clear (CLEAR) 12/21/23 10:18 Urine pH 7 (5-7) 12/21/23 10:18 Ur Specific [place] 1.005 (1.005-1.030) 12/21/23 10:18 Urine Protein Neg (Negative) 12/21/23 10:18 Urine Glucose (UA) Norm (Normal) 12/21/23 10:18 Urine Ketones Negative (Negative) 12/21/23 10:18 Urine Blood 2+ (Negative) H 12/21/23 10:18 Urine Nitrate Negative (Negative) 12/21/23 10:18 Urine Bilirubin Neg (Negative) 12/21/23 10:18 Urine Urobilinogen Norm mg/dL (Negative) 12/21/23 10:18 Ur Leukocyte Esterase Negative (Negative) 12/21/23 10:18 Urine RBC Rare /hpf (0-2) 12/21/23 10:18 Urine WBC None /hpf (0-5) 12/21/23 10:18 Ur Squamous Epith Cells None /hpf (0-5) 12/21/23 10:18 Amorphous Sediment Not Reportable 12/21/23 10:18 Urine Bacteria Trace /hpf (NONE) 12/21/23 10:18 All radiology interpretation(s) finalized by discharge Other Data Assessment and plan: Unstable angina Coronary artery disease -First dose of magnesium and metoprolol per business continuity strategy director on consult. -Subcutaneous full dose Lovenox. -Morphine 4 mg and 4 mg of IV Zofran helped considerably with her pain -I discussed the patient with the hospitalist on-call who is admitting the patient. - Discussed findings and plan with patient. Answered any questions. - All laboratory values were reviewed and interpreted personally by myself, the ER physician - All imaging was reviewed and interpreted personally by myself, the ER physician. - Evaluation and treatment of this problem were appropriate in the emergency setting -I spent a total of >35 minutes of critical care time managing the patient, independent of any other practitioner. -The time involved in the performance of separately reportable procedures was not counted towards critical care time. Discharge Plan Discharge Patient Disposition: Admitted As Inpatient Clinical Impression: Unstable angina Coronary artery disease Qualifiers: Coronary Disease-Associated Artery/Lesion type: [place] artery [place] vs. transplanted heart: [place] heart Associated angina: without angina Qualified Code(s): I25.10 - Atherosclerotic heart disease of [place] coronary artery without angina pectoris Condition: Stable Coding Level of Care Code ED Veterinary Radiologist for Joy Guardado
[2023-12-21 09:55] LABS: Basophils # 0.1 10^3/uL (0.0-0.1); Basophils % 0.6 %; Eosinophils # 0.2 10^3/uL (0.0-0.8); Eosinophils % 1.7 %; Hematocrit 41.6 % (36-47); Lymphocytes # 2.5 10^3/uL (0.8-4.8); Lymphocytes % 27.7 %; Mean Corpuscular HGB Conc 34.1 g/dL (30-55); Mean Corpuscular Hemoglobin 32.5 pg (27-33); Mean Corpuscular Volume 95.2 fl (85-98); Mean Platelet Volume 9.9 fL (7.4-10.4); Monocytes # 0.5 10^3/uL (0.2-0.9); Monocytes % 5.1 %; Neutrophils # 5.71 10^3/uL (1.8-7.7); Neutrophils % 64.6 %; Nucleated Red Blood Cells % 0 %; Platelet Count 266 10^3/cmm (157-399); Red Blood Count 4.37 10^6/uL (3.85-5.65); Red Cell Distribution Width 13.2 % (12.1-15.1); White Blood Count 8.84 10^3/uL (3.29-11.43)
[2023-12-21 10:18] LABS: Troponin(5th) Baseline < 6 ng/L (0-10)
[2023-12-21 10:23] LABS: Alanine Aminotransferase 17 U/L (0-33); Albumin Level 3.9 g/dL (3.5-5.2); Alkaline Phosphatase 80 U/L (35-105); Aspartate Amino Transferase 16 U/L (0-32); Blood Urea Nitrogen 11 mg/dL (6-20); Calcium 9.2 mg/dL (8.5-10.5); Carbon Dioxide 21 mmol/L (22-29); Chloride 107 mmol/L (98-107); Globulin 2.8 g/dL (1.3-4.6); Glomerular Filtration Rate 89.7 mL/min (90-130); Glucose 165 mg/dL (65-115); Magnesium 1.7 mg/dL (1.7-2.3); Osmolality Calculated 293 mOsm/kg (285-295); Sodium 140 mmol/L (136-145); Thyroid Stimulating Hormone 1.27 uIU/mL (0.27-4.20); Total Bilirubin 0.3 mg/dL (0.15-1.2); Total Protein 6.7 g/dL (6.6-8.7)
[2023-12-21] MEDS: ondansetron 2 mg/ML SDV 2 mL 4 MG IVP (10:35)
[2023-12-21] MEDS: morphine 4 mg/mL SDV 1 mL IVP (10:36)
[2023-12-21] MEDS: sodium chloride 0.9% 500 ML 999 ML IV (10:37)
[2023-12-21 10:50] LABS: Specific Gravity, Urine 1.005 (1.005-1.030); Urine Appearance Clear (CLEAR); Urine Color Colorless (Yellow); pH Urine 7 (5-7)
[2023-12-21 10:51] LABS: Add Urine Culture? No; Bacteria Urine TRACE /hpf; Bilirubin Urine Neg (Negative); Blood Urine 2+ (Negative); Glucose Urine UA Norm (Normal); Ketones Urine Negative (Negative); Leukocyte Esterase Urine Negative (Negative); Nitrate Urine Negative (Negative); Protein Urine Neg (Negative); RBC Urine RARE /hpf (0-2); Urobilinogen Urine Norm (Negative)
[2023-12-21 11:43] LABS: Troponin 5 2HR Delta 0.00001 ABS# (0-10)
--- NOTE | 2023-12-21 11:45 | ECG_ITS ---
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 Measurements Intervals [place] Rate: 69 P: 50 VT: 149 QRS: -7 QRSD: 77 T: 7 QT: 381 QTc: 410 Interpretive Statements SINUS RHYTHM WITH SINUS ARRHYTHMIA LOW QRS VOLTAGE IN PRECORDIAL LEADS [QRS DEFLECTION < 1.0 mV IN CHEST LEADS] PROBABLE ANTERIOR MYOCARDIAL INFARCTION , OF INDETERMINATE AGE [35 ms Q WAVE IN V3/V4] Compared to ECG 12/21/2023 09:41:50 Ventricular premature complex(es) no longer present Myocardial infarct finding still present Electronically Signed On 12-21-2023 19:59:47 CDT by Iban Olivo M.D. [email or web address] [email or web address] [id number]
[2023-12-21 13:51] LABS: Cholesterol 146 mg/dL (0-200); HDL Cholesterol 43 mg/dL (60-100); LDL Cholesterol Calculated 60 mg/dL (50-129); Thyroid Stimulating Hormone 1.67 uIU/mL (0.27-4.20); Triglycerides 216 mg/dL (0-150)
[2023-12-21 13:56] LABS: Estmated Average Glucose 134; Hemoglobin A1C 6.3 % (4.0-6.0)
[2023-12-21] MEDS: enoxaparin 150 mg/mL Syringe 140 MG SUBCUT (13:56)
[2023-12-21] MEDS: metoprolol tartrate 25 mg Tablet PO ×2 (13:56→21:20)
[2023-12-21] MEDS: magnesium lactate 84 mg Tablet 168 MG PO (13:56)
[2023-12-21] MEDS: sodium chloride 0.9% 1,000 ML 75 ML IV (13:57)
--- NOTE | 2023-12-21 14:51 | PM.HP ---
Providers/Chief Complaint Admitting Physician: Jaja Pendleton MD Primary Care Provider: Yulisa De La Cruz Chief Complaint: chest pain History of Present Illness Natacha Romano is a 48 year old female with past medical history of CAD status post PR status post SILVIA ostial LAD, hyperlipidemia, hypertension, morbid obesity, strong family history of heart disease in mom presented to the hospital today for complaint of chest pain/palpitations. She says that she has been having issues for some time and has also seen a natural gas shothole driller as an outpatient. Initially cardiac angiogram was being planned for upcoming however last night she felt like she was having a heart attack. She was placed on isosorbide last week which she feels has helped a little bit however the pain has worsened in the last 24 hours. She also feels she is having an irregular heart rate. Some of this pain radiates to her left shoulder. She has had nausea and was diaphoretic last night. Denies abdominal pain, vomiting, diarrhea, constipation. Family member present at bedside. Medications/Allergies Home Medications Medication Instructions Recorded Confirmed Last Taken Type clopidogrel 75 mg tablet 75 mg PO DAILY #90 tabs 12/05/22 12/21/23 12/21/23 Rx carvedilol 3.125 mg tablet 6.25 mg (2 x 3.125 mg) PO BID #180 10/03/23 12/21/23 12/21/23 Rx tabs simvastatin 40 mg tablet (Zocor) 40 mg PO QPM #90 tabs 10/31/23 12/21/23 12/20/23 Rx furosemide 20 mg tablet (Lasix) 20 mg PO QAM #90 tabs 11/21/23 12/21/23 12/21/23 Rx sacubitril 49 mg-valsartan 51 mg 1 tab PO BID #60 tabs 12/06/23 12/21/23 12/21/23 Rx tablet isosorbide mononitrate 30 mg 30 mg PO DAILY #30 tabs 12/12/23 12/21/23 12/21/23 Rx tablet,extended release 24 hr aspirin 81 mg tablet,delayed 81 mg PO DAILY #90 tabs 12/20/23 12/21/23 12/21/23 Rx release cetirizine 10 mg tablet 10 mg PO DAILY 12/21/23 12/21/23 12/21/23 History Allergies Allergy/AdvReac Type Severity Reaction Status Date / Time No Known Allergies Allergy Verified 12/12/23 07:26 PFSH Acute PFSH: Medical History (Updated 12/21/23 @ 10:37 by Selina Hassan MD) Coronary artery disease STEMI (ST elevation myocardial infarction) Surgical History Presence of stent in LAD coronary artery Social History Smoking and tobacco/nicotine status: current every day tobacco/nicotine user Vitals/I&O/Wt Last Vital Signs Temp 97.4 F L 12/21/23 09:37 Pulse 60 12/21/23 14:00 Resp 16 12/21/23 13:11 BP 116/63 12/21/23 13:11 Pulse Ox 99 12/21/23 13:11 O2 Del Method Room Air 12/21/23 13:23 12/20/23 12/21/23 12/21/23 22:59 06:59 14:59 Intake Total 500 / 500 Balance 500 / 500 Weight last 48 hrs Weight 136.078 kg Weight 136.078 kg Physical Exam Narrative: General: Alert oriented x3, patient seen laying in bed appearing comfortable at this time, has active chest pain. HEENT: Normocephalic, atraumatic, EOMI, breathing room air Cardio: Regular rate rhythm, normal S1-S2, Respiratory: Good bilateral air entry, no wheezes no rhonchi appreciated GI: Abdomen soft, nontender, nondistended, bowel sounds + Behavior: Appropriate and cooperative Extremities: no edema, no cyanosis Data 12/21/23 09:49 12/21/23 09:49 A&P Assessment and plan (1) CHF (congestive heart failure), NYHA class II: Qualifiers: Congestive heart failure type: systolic Congestive heart failure chronicity: acute on chronic Qualified Code(s): I50.23 - Acute on chronic systolic (congestive) heart failure (2) Coronary artery disease: Qualifiers: Coronary Disease-Associated Artery/Lesion type: [place] artery [place] vs. transplanted heart: [place] heart Associated angina: without angina Qualified Code(s): I25.10 - Atherosclerotic heart disease of [place] coronary artery without angina pectoris (3) Unstable angina: (4) Obesity: Plan #Unstable angina #History of ST elevation PR status post stent 1 year ago #Strong family history of heart disease in mom #Hyperlipidemia #Hypertension #Palpitations, chest pain secondary to above ? Placed on ACS protocol: Aspirin, Plavix, therapeutic Lovenox, metoprolol, Imdur ? N.p.o. at midnight today for cardiac angiogram in a.m. ? Initial 2 troponins negative, EKG without any ischemic changes ? Await 6-hour troponin ? May use Nitropaste if needed ? Consult cardiology. -Hold Entresto at this time ? Placed on normal saline 75 cc/h Full code DVT prophylaxis: On therapeutic Lovenox Attestations Medical Necessity Statement*: Admitted for unstable angina, plan for cardiac cath in a.m. Diagnoses Acute on chronic systolic congestive heart failure, NYHA class 2 I50.23 Congestive heart failure type: systolic Congestive heart failure chronicity: acute on chronic Coronary artery disease involving [place] coronary artery of [place] heart without angina pectoris I25.10 Coronary Disease-Associated Artery/Lesion type: [place] artery [place] vs. transplanted heart: [place] heart Associated angina: without angina Unstable angina I20.0 Obesity E66.9
--- NOTE | 2023-12-21 14:52 | ECG_ITS ---
[facility] Test Date: 2023-12-21 Pat Name: Natacha Romano Department: Room: 106 Gender: Female Shop [employer]: : 1975 Requested By: Selina Echevarria Order Number: [id number] Niki MD: Iban Olivo M.D. Measurements Intervals [place] Rate: 55 P: 11 ID: 120 QRS: 3 QRSD: 97 T: 18 QT: 441 QTc: 425 Interpretive Statements SINUS BRADYCARDIA LOW QRS VOLTAGE IN PRECORDIAL LEADS [QRS DEFLECTION < 1.0 mV IN CHEST LEADS] ANTEROSEPTAL MYOCARDIAL INFARCTION , PROBABLY OLD [40+ ms Q WAVE IN V1-V4] Compared to ECG 12/21/2023 11:10:51 Sinus rhythm no longer present Sinus arrhythmia no longer present Myocardial infarct finding still present Electronically Signed On 12-21-2023 20:04:16 CDT by Iban Olivo M.D. [id number]
--- NOTE | 2023-12-21 16:52 | P.CONIM_ITS ---
Providers/Reason For Consult 2 Consulting Physician/Specialty*: MORRO Olivo MD/cardiology Reason for Consult*: Patient with unstable angina, atherosclerotic heart disease Requesting Physician: Dr. Pendleton Attending Physician: Jaja Pendleton MD Primary Care Provider: Yulisa De La Cruz History of Present Illness History of Present Illness Natacha Romano is a 48 year old female with a history of atherosclerotic heart disease and previous myocardial infarction, is admitted to hospital through the emergency room where she presented with complaints of chest pain and shortness of breath. Cardiology consult is requested for further cardiac evaluation recommendations. This patient has a history of atherosclerotic heart disease. In October 2022, she presented with acute anterior wall myocardial infarction. She was found to have total occlusion of the left anterior descending artery, near to the ostium. She underwent thrombectomy followed by angioplasty and stent placement with a 4.0 x 20 mm drug-eluting stent. Her LV ejection fraction was around 35-40 % by echocardiogram at that time. According the patient, she was feeling okay up until last Thanksgiving when she started having shortness of breath and some feeling of weakness. Apparently around Thanksgiving, she had a covert 19 infection and recurrent respiratory infection. She had to take 3 courses of antibiotics. However her symptoms never completely resolved. She was seen in our clinic a few weeks ago for her routine follow-up evaluation. She was wanting to replace the Entresto with something else because of the cost. So she was taken off this medication and was placed on losartan. 10 days later, she presented with complaints of shortness of breath and chest tightness. An echocardiogram done at that time revealed possibly normal ejection fraction. Her BNP was slightly elevated. She had a CT of the chest which ruled out pulmonary embolism. She had a Myocardial perfusion imaging which revealed mostly fixed defect with a very small area of reversible defect in the anteroapical region, suggestive of myocardial scarring with a very small area of infarction ischemia. Because of her ongoing symptoms she was scheduled for a cardiac catheterization to further evaluate the coronary status and decide on further management. She was placed on isosorbide mononitrate during the last office visit. According the patient, she was feeling much better with the medication. Last night, she had an episode of chest tightness/heaviness associated with the nausea and sweating. This might have lasted for half an hour or so. Her symptoms gradually improved. This morning, she was in the car on the way home. All of a sudden she started having pain in the substernal region rating to the left shoulder. Intensity of the pain was moderate. This was associated with some shortness of breath. No other associated symptoms or radiation of pain. Because of these episodes, she was brought to the emergency room. At the time of my examination, patient is pain-free. She has no fever, chills or cough. No other specific complaints. Patient has a family history of atherosclerotic heart disease. She also has a history of smoking abuse. No alcohol abuse or any other substance abuse. She is morbidly obese. She was found to have aberrant right subclavian artery by CTA. Because of the tortuosity in this artery, LV then could not be performed during the last cardiac catheterization. She also has a history of dyslipidemia Her LV ejection fraction was around 35 to 40% by echocardiogram in January 2023. Echocardiogram on 12/10/2023 revealed possibly normal ejection fraction. The study was of suboptimal quality. Review of Systems 2 Narrative: CONSTITUTIONAL: No fever or chills. Feeling of weakness/exertional dyspnea EYES: No blurring of vision or other visual disturbances lately. ENT: No hoarseness of voice, auditory disturbances or sore throat. CARDIOVASCULAR: As mentioned above. RESPIRATORY: No significant cough. GASTROINTESTINAL: No hematemesis or melena. GENITOURINARY: No dysuria or hematuria. INTEGUMENTARY: No skin rashes or history of skin cancer. NEURO: No transient ischemic attacks or amaurosis. PSYCHIATRIC: No history of psychosis or major depression. HEMATOLOGIC: No bleeding disorders or significant anemia. ENDOCRINE: No history of polyuria or polydipsia. MUSCULOSKELETAL: No recent joint pain or swelling. ALLERGY/IMMUNOLOGY: As mentioned above. Medications/Allergies Home Medications Medication Instructions Recorded Confirmed Last Taken Type clopidogrel 75 mg tablet 75 mg PO DAILY #90 tabs 12/05/22 12/21/23 12/21/23 Rx carvedilol 3.125 mg tablet 6.25 mg (2 x 3.125 mg) PO BID #180 10/03/23 12/21/23 12/21/23 Rx tabs simvastatin 40 mg tablet (Zocor) 40 mg PO QPM #90 tabs 10/31/23 12/21/23 12/20/23 Rx furosemide 20 mg tablet (Lasix) 20 mg PO QAM #90 tabs 11/21/23 12/21/23 12/21/23 Rx sacubitril 49 mg-valsartan 51 mg 1 tab PO BID #60 tabs 12/06/23 12/21/23 12/21/23 Rx tablet isosorbide mononitrate 30 mg 30 mg PO DAILY #30 tabs 12/12/23 12/21/23 12/21/23 Rx tablet,extended release 24 hr aspirin 81 mg tablet,delayed 81 mg PO DAILY #90 tabs 12/20/23 12/21/23 12/21/23 Rx release cetirizine 10 mg tablet 10 mg PO DAILY 12/21/23 12/21/23 12/21/23 History Allergies Allergy/AdvReac Type Severity Reaction Status Date / Time No Known Allergies Allergy Verified 12/12/23 07:26 Current Medications Generic Name Dose Route Start Last Admin Trade Name Freq PRN Reason Stop Dose Admin Enoxaparin Sodium 140 mg 12/21/23 13:30 12/21/23 13:56 Enoxaparin 150 Mg/Ml Syringe SUBCUT 140 mg Q12H SUNIL Administration Sodium Chloride 1,000 mls @ 75 mls/hr 12/21/23 13:15 12/21/23 13:57 Sodium Chloride 0.9% IV 75 mls/hr .[id number] SUNIL Administration PFSH Acute 2 PFSH: Medical History (Updated 12/21/23 @ 17:29 by Iban Olivo MD) Coronary artery disease STEMI (ST elevation myocardial infarction) Surgical History Presence of stent in LAD coronary artery Social History Smoking and tobacco/nicotine status: current every day tobacco/nicotine user Vitals/I&O/Wt Last Vital Signs Temp 97.6 F 12/21/23 16:00 Pulse 64 12/21/23 16:00 Resp 15 12/21/23 16:00 BP 136/90 12/21/23 16:00 Pulse Ox 97 12/21/23 16:00 O2 Del Method Room Air 12/21/23 16:00 12/21/23 12/21/23 12/21/23 06:59 14:59 22:59 Intake Total 500 / 500 Balance 500 / 500 Weight last 48 hrs Weight 300 lb Weight 300 lb Physical Exam 2 Narrative: GENERAL: The patient is alert and oriented times three. Not in any acute distress. Morbidly obese HEENT: No significant pallor, icterus or lymphadenopathy.Oral cavity: There are no mucous membrane lesions. NECK: Trachea appears to be central. No masses noted. No JVD or thyromegaly appreciated. RESPIRATORY: Chest is symmetrical. No intercostals muscle retraction or any accessory muscle activation. There is no chest wall tenderness. Breath sounds are heard bilaterally. No rales or rhonchi heard. No evidence of any consolidation. BREASTS: Deferred. HEART: The heart sounds are normal. No S3 or S4. No significant murmurs. No pericardial rub ABDOMEN: No vessel pulsations or distention. No tenderness. No organomegaly appreciated. Bowel sounds are normally heard. : Deferred. RECTAL: Deferred. LYMPHATIC: No lymphadenopathy noted in the neck. EXTREMITIES: No edema or cyanosis. No clubbing. MUSCULOSKELETAL: No acute joint deformities or swelling SKIN: There are no significant rashes or ecchymosis NEUROPSYCHIATRIC: The patient is alert and oriented x3. Appears to be in a good mood. No tremors or rigidity noted. Data 12/22/23 07:04 12/21/23 09:49 Other Labs: Laboratory Last Values WBC 8.84 10^3/uL (3.29-11.43) 12/21/23 09:49 RBC 4.37 10^6/uL (3.85-5.65) 12/21/23 09:49 Hgb 14.20 g/dL (11.27-16.99) 12/21/23 09:49 Hct 41.6 % (36-47) 12/21/23 09:49 MCV 95.2 fl (85-98) 12/21/23 09:49 MCH 32.5 pg (27-33) 12/21/23 09:49 MCHC 34.1 g/dL (30-55) 12/21/23 09:49 RDW 13.2 % (12.1-15.1) 12/21/23 09:49 Plt Count 266 10^3/cmm (157-399) 12/21/23 09:49 MPV 9.9 fL (7.4-10.4) 12/21/23 09:49 Neut % (Auto) 64.6 % 12/21/23 09:49 Lymph % (Auto) 27.7 % 12/21/23 09:49 [place] % (Auto) 5.1 % 12/21/23 09:49 Eos % (Auto) 1.7 % 12/21/23 09:49 Baso % (Auto) 0.6 % 12/21/23 09:49 Neut # (Auto) 5.71 10^3/uL (1.8-7.7) 12/21/23 09:49 Lymph # (Auto) 2.5 10^3/uL (0.8-4.8) 12/21/23 09:49 [place] # (Auto) 0.5 10^3/uL (0.2-0.9) 12/21/23 09:49 Eos # (Auto) 0.2 10^3/uL (0.0-0.8) 12/21/23 09:49 Baso # (Auto) 0.1 10^3/uL (0.0-0.1) 12/21/23 09:49 Nucleated RBC % (auto) 0 % 12/21/23 09:49 Nucleated RBCs # 0.0 /100WBC 12/21/23 09:49 Sodium 140 mmol/L (136-145) 12/21/23 09:49 Potassium 4.0 mmol/L (3.5-5.1) 12/21/23 09:49 Chloride 107 mmol/L (98-107) 12/21/23 09:49 Carbon Dioxide 21 mmol/L (22-29) L 12/21/23 09:49 Anion Gap 16.0 (5-19) 12/21/23 09:49 BUN 11 mg/dL (6-20) 12/21/23 09:49 Creatinine 0.7 mg/dL (0.5-0.9) 12/21/23 09:49 GFR Calculation 89.7 mL/min (90-130) L 12/21/23 09:49 Glucose 165 mg/dL (65-115) H 12/21/23 09:49 Estimat Average Glucose 134 12/21/23 09:49 Hemoglobin A1c 6.3 % (4.0-6.0) H 12/21/23 09:49 Calculated Osmolality 293 mOsm/kg (285-295) 12/21/23 09:49 Calcium 9.2 mg/dL (8.5-10.5) 12/21/23 09:49 Magnesium 1.7 mg/dL (1.7-2.3) 12/21/23 09:49 Total Bilirubin 0.3 mg/dL (0.15-1.2) 12/21/23 09:49 AST 16 U/L (0-32) 12/21/23 09:49 ALT 17 U/L (0-33) 12/21/23 09:49 Alkaline Phosphatase 80 U/L (35-105) 12/21/23 09:49 Troponin T Baseline < 6 ng/L (0-10) 12/21/23 09:49 Troponin T 120 Minute 6.00 ng/L (0-10) 12/21/23 11:18 Delta Troponin T 0.25158 ABS# (0-10) 12/21/23 11:18 Total Protein 6.7 g/dL (6.6-8.7) 12/21/23 09:49 Albumin 3.9 g/dL (3.5-5.2) 12/21/23 09:49 Globulin 2.8 g/dL (1.3-4.6) 12/21/23 09:49 Triglycerides 216 mg/dL (0-150) H 12/21/23 11:18 Cholesterol 146 mg/dL (0-200) 12/21/23 11:18 LDL Cholesterol, Calc 60 mg/dL (50-129) 12/21/23 11:18 HDL Cholesterol 43 mg/dL (60-100) L 12/21/23 11:18 LDL/HDL Ratio 1.40 RATIO (0.00-3.22) 12/21/23 11:18 Cholesterol/HDL Ratio 3.40 mg/dL (0.0-4.40) 12/21/23 11:18 TSH 1.67 uIU/mL (0.27-4.20) 12/21/23 11:18 Urine Color Colorless (Yellow) 12/21/23 10:18 Urine Appearance Clear (CLEAR) 12/21/23 10:18 Urine pH 7 (5-7) 12/21/23 10:18 Ur Specific [place] 1.005 (1.005-1.030) 12/21/23 10:18 Urine Protein Neg (Negative) 12/21/23 10:18 Urine Glucose (UA) Norm (Normal) 12/21/23 10:18 Urine Ketones Negative (Negative) 12/21/23 10:18 Urine Blood 2+ (Negative) H 12/21/23 10:18 Urine Nitrate Negative (Negative) 12/21/23 10:18 Urine Bilirubin Neg (Negative) 12/21/23 10:18 Urine Urobilinogen Norm mg/dL (Negative) 12/21/23 10:18 Ur Leukocyte Esterase Negative (Negative) 12/21/23 10:18 Urine RBC Rare /hpf (0-2) 12/21/23 10:18 Urine WBC None /hpf (0-5) 12/21/23 10:18 Ur Squamous Epith Cells None /hpf (0-5) 12/21/23 10:18 Amorphous Sediment Not Reportable 12/21/23 10:18 Urine Bacteria Trace /hpf (NONE) 12/21/23 10:18 Other data: EKG done on 12/21/2023 Normal sinus rhythm with a features of old anteroseptal MA. Poor R wave progression. No acute ST-T changes. Some nonspecific ST changes inferiorly Myocardial perfusion imaging done on 12/12/2023 1. Myocardial perfusion imaging revealing moderate area of moderate to severely decreased persistent tracer uptake involving all the apical segments and the mid anterior wall region with a subtle area of reversibility in the apical inferior region, suggesting myocardial scarring in the distribution of all the 3 coronary arteries with a very small area of valentin-infarction ischemia in the RCA/circumflex territory. 2. Diminished ejection fraction of 42%. 3. LV wall motion abnormality as mentioned above. 4. Mildly dilated LV cavity with end-systolic volume of 87ml. No similar previous studies are available for comparison Echocardiogram done on 12/10/2023 The examination is uninterpretable without echo contrast. With echo contrast the apical 2 chamber view is barely visible. The overall ejection fraction is probably close to normal. Wall motion disturbances cannot be determined. No Doppler M-mode is available. No diastolic function analysis is performed. Previous study was done in January of last year. It was an equally poor study. There is probably not much change. Echocardiogram done in January 2023 This is a limited echocardiogram performed to assess LV systolic unction. LV systolic function is moderately reduced with EF of 35 to 40%. Accurate assessment of regional wall motion normalities is not possible because of limited visualization. Cardiac catheterization done on 11/07/2022 . 46-year-old female presented with ST elevation MA of the anterior wall. She was taken to the [facility]. She was noted to have 100% ostial occluded LAD#1 Left main normal#2 100% ostial occluded LAD with LAUREN 0 flow#3 Left circumflex nondominant with luminal irregularities no significant stenosis#4 RCA is a dominant vessel with luminal irregularities without significant stenosis. * Percutaneous intervention left main was engaged with CLS guide with the help of run-through wire we were able to cross the lesion. Multiple balloon angioplasty using 2.0x15 Trek balloon was used despite of that were not able to open up the vessel. Pronto catheter was utilized for manual thrombectomy which remained unsuccessful, we then took penumbra CAT 6 which finally cleared the vessel from thrombus. 3.0 x 20 mm trek balloon was then used followed by a 4.0 x 22 mm [place] drug-eluting stent at nominal HARRY postdilated with 4.5 x 12 mm noncompliant E[place] balloon. Excellent angiographic result with LAUREN-3 flow was restored.. * IVUS was performed post stent deployment to assess apposition and optimization of the stent. Stent was noted to be well opposed. A&P Assessment and plan (1) Atherosclerotic heart disease of [place] coronary artery with other forms of angina pectoris: Patient's recurrent episodes of chest pain/chest tightness, may suggest underlying coronary ischemia. Her ischemic burden based on the perfusion scan was low. However in view of her ongoing symptoms, to better evaluate the coronary status, a cardiac catheterization would be appropriate. Myocardial infarction may be ruled out with serial enzymes and EKGs. She may be treated with subcu Lovenox, beta-travon, aspirin, Plavix, statin and other symptomatic measures. (2) Chest pain: The symptoms are somewhat atypical. EKG is unremarkable. Hemodynamically she seems to be stable. Will continue the treatment as mentioned above. Qualifiers: Chest pain type: precordial pain Qualified Code(s): R07.2 - Precordial pain (3) Aberrant right subclavian artery: Patient has a very tortuous subclavian artery. Probably a femoral approach would be better for the cardiac catheterization. (4) History of smoking 25-50 pack years: (5) Heart failure with improved ejection fraction (HFimpEF): Based on echocardiogram, she seems to have significant improvement of the LV ejection fraction. The current management may be continued. (6) Dyslipidemia: Continue on the current treatment (7) Elevated blood pressure reading: I may start her on Nitropaste 1 inch every 6 hours to the anterior chest wall. Plan Based on the clinical progress, further recommendations will be made. Thank you for the opportunity to evaluate this patient and make these recommendations Will plan for a cardiac catheterization on Saturday, unless her condition changes Consult Attestations 2 Medical Necessity Statement: Patient requires continued hospital stay for close monitoring and further management Coding Level of Care Code 93446 Diagnoses Atherosclerotic heart disease of [place] coronary artery with other forms of angina pectoris I25.118 Precordial pain R07.2 Chest pain type: precordial pain Aberrant right subclavian artery Q27.8 History of smoking 25-50 pack years Z87.891 Heart failure with improved ejection fraction (HFimpEF) I50.32 Dyslipidemia E78.5 Elevated blood pressure reading R03.0
[2023-12-21] MEDS: atorvastatin 40 mg Tablet 20 MG PO (17:19)
[2023-12-21] MEDS: nitroglycerin 1 gm/inch oint Pkt 1 INCH TOPICAL ×2 (17:19→21:20)
[2023-12-21 18:39] LABS: Troponin 5 6HR Delta 0.00001 ng/L (0-12)
--- NOTE | 2023-12-21 20:05 | ECG_ITS ---
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 Measurements Intervals [place] Rate: 67 P: 44 TX: 123 QRS: 12 QRSD: 93 T: 49 QT: 412 QTc: 435 Interpretive Statements SINUS RHYTHM LOW QRS VOLTAGE IN PRECORDIAL LEADS [QRS DEFLECTION < 1.0 mV IN CHEST LEADS] ANTEROSEPTAL MYOCARDIAL INFARCTION , PROBABLY OLD [40+ ms Q WAVE IN V1-V4] Compared to ECG 12/21/2023 14:52:00 Sinus bradycardia no longer present Myocardial infarct finding still present Electronically Signed On 12-22-2023 22:41:31 CDT by Iban Olivo M.D. [id number]
[2023-12-22] VITALS (11 sets, daily range): BP systolic 93–137; BP diastolic 57–89; PULSE 53–80; RESP 12–20; TEMP 36.5–36.6; O2SAT 94–98
--- NOTE | 2023-12-22 00:25 | PC.NURSE ---
Addendum entered by Madina Salgado RN 12/22/23 04:00: pt not having any chest pain at this time. Original Note: nurse removed nitro patch from left upper chest.
[2023-12-22] MEDS: enoxaparin 150 mg/mL Syringe 140 MG SUBCUT ×2 (01:30→14:16)
[2023-12-22] MEDS: sodium chloride 0.9% 1,000 ML 75 ML IV (02:55)
[2023-12-22 08:03] LABS: Basophils # 0.1 10^3/uL (0.0-0.1); Basophils % 0.8 %; Eosinophils # 0.2 10^3/uL (0.0-0.8); Eosinophils % 1.8 %; Hematocrit 41.3 % (36-47); Lymphocytes # 2.7 10^3/uL (0.8-4.8); Lymphocytes % 32.2 %; Mean Corpuscular HGB Conc 33.2 g/dL (30-55); Mean Corpuscular Hemoglobin 32.4 pg (27-33); Mean Corpuscular Volume 97.6 fl (85-98); Mean Platelet Volume 10.3 fL (7.4-10.4); Monocytes # 0.5 10^3/uL (0.2-0.9); Monocytes % 5.9 %; Neutrophils # 4.87 10^3/uL (1.8-7.7); Neutrophils % 59.2 %; Nucleated Red Blood Cells % 0 %; Platelet Count 252 10^3/cmm (157-399); Red Blood Count 4.23 10^6/uL (3.85-5.65); Red Cell Distribution Width 13.4 % (12.1-15.1); White Blood Count 8.25 10^3/uL (3.29-11.43)
--- NOTE | 2023-12-22 09:26 | PC.NURSE ---
Provider ordered a cardiac diet for today and she will be NPO at midnight.
[2023-12-22] MEDS: clopidogrel 75 mg Tablet PO (09:41)
[2023-12-22] MEDS: metoprolol tartrate 25 mg Tablet PO ×2 (09:41→21:08)
[2023-12-22] MEDS: aspirin 81 mg EC Tablet PO (09:42)
[2023-12-22] MEDS: pantoprazole DR 40 mg Tablet PO (09:42)
[2023-12-22] MEDS: isosorbide mononitrate ER 30 mg Tablet PO (09:42)
[2023-12-22] MEDS: magnesium lactate 84 mg Tablet 168 MG PO (09:43)
--- NOTE | 2023-12-22 11:41 | PM.PN ---
Subjective Subjective: seen today no acute events overnight chest pain/palpitations are better as per pt plan for cath in am Vitals/I&O/Wt Last Vital Signs Temp 97.9 F 12/22/23 00:00 Pulse 54 L 12/22/23 11:14 Resp 16 12/22/23 11:14 BP 113/71 12/22/23 11:14 Pulse Ox 97 12/22/23 11:14 O2 Del Method Room Air 12/22/23 11:14 12/21/23 12/22/23 12/22/23 22:59 06:59 14:59 Intake Total 340 / 840 1172.5 2011.5 531.25 / 531.25 Balance 340 / 840 1172.5 531.25 / 531.25 Weight last 48 hrs Weight 136.078 kg Weight 136.078 kg Physical Exam Narrative: General: Alert oriented x3, patient seen laying in bed appearing comfortable at this time, has active chest pain. HEENT: Normocephalic, atraumatic, EOMI, breathing room air Cardio: Regular rate rhythm, normal S1-S2, Respiratory: Good bilateral air entry, no wheezes no rhonchi appreciated GI: Abdomen soft, nontender, nondistended, bowel sounds + Behavior: Appropriate and cooperative Extremities: no edema, no cyanosis Data 12/22/23 07:04 12/21/23 09:49 A&P Assessment and plan (1) CHF (congestive heart failure), NYHA class II: Qualifiers: Congestive heart failure type: systolic Congestive heart failure chronicity: acute on chronic Qualified Code(s): I50.23 - Acute on chronic systolic (congestive) heart failure (2) Coronary artery disease: Qualifiers: Coronary Disease-Associated Artery/Lesion type: [place] artery [place] vs. transplanted heart: [place] heart Associated angina: without angina Qualified Code(s): I25.10 - Atherosclerotic heart disease of [place] coronary artery without angina pectoris (3) Unstable angina: (4) Obesity: Plan #Unstable angina #History of ST elevation HI status post stent 1 year ago #Strong family history of heart disease in mom #Hyperlipidemia #Hypertension #Palpitations, chest pain secondary to above ? Placed on ACS protocol: Aspirin, Plavix, therapeutic Lovenox, metoprolol, Imdur ? N.p.o. at midnight today for cardiac angiogram in a.m. ? Initial 2 troponins negative, EKG without any ischemic changes ? Await 6-hour troponin ? May use Nitropaste if needed ? Consult cardiology. -Hold Entresto at this time. apparently pt not taking since last 1 month ? Placed on normal saline 75 cc/h. will hold fluids today. restart prior to procedure in am. discussed with cardiology Full code DVT prophylaxis: On therapeutic Lovenox Attestations Medical Necessity Statement*: Admitted for unstable angina, plan for cardiac cath in a.m. Diagnoses Acute on chronic systolic congestive heart failure, NYHA class 2 I50.23 Congestive heart failure type: systolic Congestive heart failure chronicity: acute on chronic Coronary artery disease involving [place] coronary artery of [place] heart without angina pectoris I25.10 Coronary Disease-Associated Artery/Lesion type: [place] artery [place] vs. transplanted heart: [place] heart Associated angina: without angina Unstable angina I20.0 Obesity E66.9
--- NOTE | 2023-12-22 13:38 | P.PN_ITS ---
Subjective 2 Subjective: Patient has no chest pain or shortness of breath. The Nitropaste because the blood pressure and the heart rate to go low. So for that reason, it was discontinued. Denies any unusual shortness of breath. No similar arrhythmias on the monitor. For episodes with a heart rate in the 40s were noted. Medications: Medication Review Details: Current Medications Acetaminophen (Acetaminophen 325 Mg Tablet) 650 mg PO Q6H PRN PRN Reason: Mild/Mod Pain Or Temp >/= 101 Albuterol/Ipratropium (Ipratropium-Albuterol 3 Ml Neb) 3 ml INHALATION Q6H PRN PRN Reason: SHORTNESS OF BREATH Aspirin (Aspirin 81 Mg Ec Tablet) 81 mg PO DAILY [facility] Last Admin: 12/22/23 09:42 Dose: 81 mg Atorvastatin Calcium (Atorvastatin 40 Mg Tablet) 20 mg PO QPM [facility] Last Admin: 12/21/23 17:19 Dose: 20 mg Clopidogrel Bisulfate (Clopidogrel 75 Mg Tablet) 75 mg PO DAILY [facility] Last Admin: 12/22/23 09:41 Dose: 75 mg Enoxaparin Sodium (Enoxaparin 150 Mg/Ml Syringe) 140 mg SUBCUT Q12H [facility] Last Admin: 12/22/23 01:30 Dose: 140 mg Sodium Chloride (Sodium Chloride 0.9%) 1,000 mls @ 75 mls/hr IV .[id number] [facility] Last Infusion: 12/22/23 10:00 Dose: 0 mls/hr Isosorbide Mononitrate (Isosorbide Mononitrate Er 30 Mg Tablet) 30 mg PO DAILY [facility] Last Admin: 12/22/23 09:42 Dose: 30 mg Magnesium Lactate (Magnesium Lactate 84 Mg Tablet) 168 mg PO DAILY [facility] Last Admin: 12/22/23 09:43 Dose: 168 mg Metoprolol Tartrate (Metoprolol Tartrate 25 Mg Tablet) 25 mg PO BID@0900,2100 [facility] Last Admin: 12/22/23 09:41 Dose: 25 mg Nitroglycerin (Nitroglycerin 1 Gm/Inch Oint Pkt) 1 inch TOPICAL Q6H [facility] Last Admin: 12/22/23 11:21 Dose: Not Given Ondansetron HCl (Ondansetron 2 Mg/Ml Sdv 2 Ml) 4 mg IVP Q8H PRN PRN Reason: vomiting, or N/V if npo Pantoprazole Sodium (Pantoprazole Dr 40 Mg Tablet) 40 mg PO DAILY [facility] Last Admin: 12/22/23 09:42 Dose: 40 mg Vitals/I&O/Wt Last Vital Signs Temp 97.9 F 12/22/23 00:00 Pulse 54 L 12/22/23 11:14 Resp 16 12/22/23 11:14 BP 113/71 12/22/23 11:14 Pulse Ox 97 12/22/23 11:14 O2 Del Method Room Air 12/22/23 11:14 12/21/23 12/22/23 12/22/23 22:59 06:59 14:59 Intake Total 340 / 840 1172.5 2011.5 771.25 / 771.25 Balance 340 / 840 1172.5 2011. 771.25 / 771.25 Weight last 48 hrs Weight 300 lb Weight 300 lb Physical Exam 2 Narrative: GENERAL: The patient is alert and oriented times three. Not in any acute distress. Morbidly obese. HEENT: No significant pallor, icterus or lymphadenopathy.Oral cavity: There are no mucous membrane lesions. NECK: Trachea appears to be central. No masses noted. No JVD or thyromegaly appreciated. RESPIRATORY: Chest is symmetrical. No intercostals muscle retraction or any accessory muscle activation. There is no chest wall tenderness. Breath sounds are heard bilaterally. No rales or rhonchi heard. No evidence of any consolidation. BREASTS: Deferred. HEART: The heart sounds are normal. No S3 or S4. No significant murmurs. No pericardial rub ABDOMEN: No vessel pulsations or distention. No tenderness. No organomegaly appreciated. Bowel sounds are normally heard. : Deferred. RECTAL: Deferred. LYMPHATIC: No lymphadenopathy noted in the neck. EXTREMITIES: No edema or cyanosis. No clubbing. MUSCULOSKELETAL: No acute joint deformities or swelling SKIN: There are no significant rashes or ecchymosis NEUROPSYCHIATRIC: The patient is alert and oriented x3. Appears to be in a good mood. No tremors or rigidity noted. Data 12/22/23 07:04 12/21/23 09:49 Other Labs: Laboratory Last Values WBC 8.25 10^3/uL (3.29-11.43) 12/22/23 07:04 RBC 4.23 10^6/uL (3.85-5.65) 12/22/23 07:04 Hgb 13.70 g/dL (11.27-16.99) 12/22/23 07:04 Hct 41.3 % (36-47) 12/22/23 07:04 MCV 97.6 fl (85-98) 12/22/23 07:04 MCH 32.4 pg (27-33) 12/22/23 07:04 MCHC 33.2 g/dL (30-55) 12/22/23 07:04 RDW 13.4 % (12.1-15.1) 12/22/23 07:04 Plt Count 252 10^3/cmm (157-399) 12/22/23 07:04 MPV 10.3 fL (7.4-10.4) 12/22/23 07:04 Neut % (Auto) 59.2 % 12/22/23 07:04 Lymph % (Auto) 32.2 % 12/22/23 07:04 [place] % (Auto) 5.9 % 12/22/23 07:04 Eos % (Auto) 1.8 % 12/22/23 07:04 Baso % (Auto) 0.8 % 12/22/23 07:04 Neut # (Auto) 4.87 10^3/uL (1.8-7.7) 12/22/23 07:04 Lymph # (Auto) 2.7 10^3/uL (0.8-4.8) 12/22/23 07:04 [place] # (Auto) 0.5 10^3/uL (0.2-0.9) 12/22/23 07:04 Eos # (Auto) 0.2 10^3/uL (0.0-0.8) 12/22/23 07:04 Baso # (Auto) 0.1 10^3/uL (0.0-0.1) 12/22/23 07:04 Nucleated RBC % (auto) 0 % 12/22/23 07:04 Nucleated RBCs # 0.0 /100WBC 12/22/23 07:04 Sodium Cancelled 12/22/23 07:04 Potassium Cancelled 12/22/23 07:04 Chloride Cancelled 12/22/23 07:04 Carbon Dioxide Cancelled 12/22/23 07:04 Anion Gap Cancelled 12/22/23 07:04 BUN Cancelled 12/22/23 07:04 Creatinine Cancelled 12/22/23 07:04 GFR Calculation Cancelled 12/22/23 07:04 Glucose Cancelled 12/22/23 07:04 Estimat Average Glucose 134 12/21/23 09:49 Hemoglobin A1c 6.3 % (4.0-6.0) H 12/21/23 09:49 Calculated Osmolality Cancelled 12/22/23 07:04 Calcium Cancelled 12/22/23 07:04 Magnesium Cancelled 12/22/23 07:04 Total Bilirubin Cancelled 12/22/23 07:04 AST Cancelled 12/22/23 07:04 ALT Cancelled 12/22/23 07:04 Alkaline Phosphatase Cancelled 12/22/23 07:04 Troponin T Baseline < 6 ng/L (0-10) 12/21/23 09:49 Troponin T 120 Minute 6.00 ng/L (0-10) 12/21/23 11:18 Delta Troponin T 0.00825 ABS# (0-10) 12/21/23 11:18 Troponin T Hi Sens 6Hr 6.00 ng/L (0-10) 12/21/23 18:05 Troponin T Hi Sens 6Hr Delta 0.90763 ng/L (0-12) 12/21/23 18:05 Total Protein Cancelled 12/22/23 07:04 Albumin Cancelled 12/22/23 07:04 Globulin Cancelled 12/22/23 07:04 Triglycerides 216 mg/dL (0-150) H 12/21/23 11:18 Cholesterol 146 mg/dL (0-200) 12/21/23 11:18 LDL Cholesterol, Calc 60 mg/dL (50-129) 12/21/23 11:18 HDL Cholesterol 43 mg/dL (60-100) L 12/21/23 11:18 LDL/HDL Ratio 1.40 RATIO (0.00-3.22) 12/21/23 11:18 Cholesterol/HDL Ratio 3.40 mg/dL (0.0-4.40) 12/21/23 11:18 TSH 1.67 uIU/mL (0.27-4.20) 12/21/23 11:18 Urine Color Colorless (Yellow) 12/21/23 10:18 Urine Appearance Clear (CLEAR) 12/21/23 10:18 Urine pH 7 (5-7) 12/21/23 10:18 Ur Specific [place] 1.005 (1.005-1.030) 12/21/23 10:18 Urine Protein Neg (Negative) 12/21/23 10:18 Urine Glucose (UA) Norm (Normal) 12/21/23 10:18 Urine Ketones Negative (Negative) 12/21/23 10:18 Urine Blood 2+ (Negative) H 12/21/23 10:18 Urine Nitrate Negative (Negative) 12/21/23 10:18 Urine Bilirubin Neg (Negative) 12/21/23 10:18 Urine Urobilinogen Norm mg/dL (Negative) 12/21/23 10:18 Ur Leukocyte Esterase Negative (Negative) 12/21/23 10:18 Urine RBC Rare /hpf (0-2) 12/21/23 10:18 Urine WBC None /hpf (0-5) 12/21/23 10:18 Ur Squamous Epith Cells None /hpf (0-5) 12/21/23 10:18 Amorphous Sediment Not Reportable 12/21/23 10:18 Urine Bacteria Trace /hpf (NONE) 12/21/23 10:18 A&P Assessment and plan (1) Atherosclerotic heart disease of [place] coronary artery with other forms of angina pectoris: Patient's recurrent episodes of chest pain/chest tightness, may suggest underlying coronary ischemia. Her ischemic burden based on the perfusion scan was low. However in view of her ongoing symptoms, to better evaluate the coronary status, a cardiac catheterization would be appropriate. Myocardial infarction may be ruled out with serial enzymes and EKGs. She may be treated with subcu Lovenox, beta-travon, aspirin, Plavix, statin and other symptomatic measures. (2) Chest pain: The symptoms are somewhat atypical. EKG is unremarkable. Hemodynamically she seems to be stable. Will continue the treatment as mentioned above. Qualifiers: Chest pain type: precordial pain Qualified Code(s): R07.2 - Precordial pain (3) Ventricular arrhythmia: She was found to have frequent PVCs on the EKG at the time of admission. This might be a contributing factor for the chest symptoms. (4) Aberrant right subclavian artery: Patient has a very tortuous subclavian artery. Probably a femoral approach would be better for the cardiac catheterization. (5) Heart failure with improved ejection fraction (HFimpEF): Based on echocardiogram, she seems to have significant improvement of the LV ejection fraction. The current management may be continued. (6) Dyslipidemia: Continue on the current treatment (7) Elevated blood pressure reading: Currently normotensive. Will continue on the current medications. Plan Cardiac catheterization tomorrow Will keep n.p.o. after midnight Based on the angiogram findings, further recommendations will be made. Dr. Jackman will be assuming her care in the morning Attestations 2 Medical Necessity Statement*: Patient requires continued hospital stay for close monitoring and further management Coding Level of Care Code 88206 Diagnoses Atherosclerotic heart disease of [place] coronary artery with other forms of angina pectoris I25.118 Precordial pain R07.2 Chest pain type: precordial pain Ventricular arrhythmia I49.9 Aberrant right subclavian artery Q27.8 Heart failure with improved ejection fraction (HFimpEF) I50.32 Dyslipidemia E78.5 Elevated blood pressure reading R03.0
[2023-12-22] MEDS: atorvastatin 40 mg Tablet 20 MG PO (18:21)
[2023-12-23] VITALS (9 sets, daily range): BP systolic 93–164; BP diastolic 61–106; PULSE 53–73; RESP 16–21; TEMP 36.1–37; O2SAT 93–99
[2023-12-23] MEDS: enoxaparin 150 mg/mL Syringe 140 MG SUBCUT (01:26)
[2023-12-23 04:23] LABS: Alanine Aminotransferase 16 U/L (0-33); Albumin Level 3.6 g/dL (3.5-5.2); Alkaline Phosphatase 75 U/L (35-105); Anion Gap 12.3 (5-19); Aspartate Amino Transferase 20 U/L (0-32); Blood Urea Nitrogen 13 mg/dL (6-20); Calcium 8.2 mg/dL (8.5-10.5); Carbon Dioxide 23 mmol/L (22-29); Chloride 112 mmol/L (98-107); Creatinine Clr Calc Pharmacy 143.3427; Globulin 2.2 g/dL (1.3-4.6); Glomerular Filtration Rate 89.7 mL/min (90-130); Glucose 108 mg/dL (65-115); Magnesium 1.8 mg/dL (1.7-2.3); Osmolality Calculated 297 mOsm/kg (285-295); Potassium 4.3 mmol/L (3.5-5.1); Sodium 143 mmol/L (136-145); Total Bilirubin 0.2 mg/dL (0.15-1.2); Total Protein 5.8 g/dL (6.6-8.7)
--- NOTE | 2023-12-23 07:09 | XACV_ITS ---
Exam Room: [facility] Ht: 170 cm Wt: 139 kg BSA: 2.64 m2 Gender: Female : 1975 Any Known Allergies: No known allergies Exam Priority: Routine Procedure(s): Procedure Description: Diagnostic procedure Procedure Description: Left Heart Catheterization Procedure Description: Left ventriculography Procedure Description: Coronary Angiography Geovani DEL CASTILLO; Diagnostic Cath Status: Urgent Diagnostic Findings * INDICATION: Worsening angina/abnormal stress test. * No significant disease noted in the Left Main, Left Anterior Descending, Right, or Circumflex coronary arteries. Patent proximal LAD prior stent. Diagonal artery coming off of proximal LAD, has minimal ostial pinching from prior stent. * Coronary angiography shows right dominance. Conclusions 1. No significant disease noted in the Left Main, Left Anterior Descending, Right, or Circumflex coronary arteries. Patent proximal LAD prior stent. Diagonal artery coming off of proximal LAD, has minimal ostial pinching from prior stent. 2. Mild left ventricular systolic dysfunction. Ejection fraction of 45%. Recommendations * Aggressive risk factor modification. * High intensity statin therapy. * Outpatient cardiology follow up in 4 weeks. Interventional RX Recommendation: medical therapy and/or counseling Diagnostic RX Recommendation: medical therapy and/or counseling Anticoagulation: Heparin Ventriculography Ejection Fraction: 45.0 % Pressures Phase:Rest AO : 90 / 69 ( 81 ) @ 12:58:00 PM 111 / 65 ( 85 ) @ 1:06:00 PM 114 / 68 ( 87 ) @ 1:06:00 PM LV : 113 / 0 / 19 @ 1:05:00 PM 113 / 1 21 @ 1:06:00 PM 112 / 2 / 19 @ 1:06:00 PM Valves Phase:DefaultPhase AV : 0.0 @ 12:16:12 PM Clinical Evaluation EBL: 5mL-10mL Procedural Details Pre-Procedure Time Out. Identified patient by full name and date of as verbalized by the patient/guarantor. Does the consent match the physician's order: Yes. Accurate & Complete Informed Consent: Yes. Inpatient/Outpatient History & Physical on Chart: Yes. If H&P is completed, is and addenduem needed: No; If yes, is the addendum complete: N/A. Visualize and Verify Site with Patient/Guarantor: N/A. Relevant Radiology Images available: Yes. Pre-op teaching completed and patient verbalized understanding. The risks, benefits, and alternatives of sedation and/or procedure were discussed by physician. The patient agrees to continue. Procedure started. [facility] Clinical Fraility Score: 3: Managing Well. Publisher Assistant Indications: ACS > 24 hours. Chest Pain Symptom Assessment: Atypical Angina. Correct patient, site and procedure confirmed by cath team. Current diagnosis: NSTEMI. PERRLA. Strong, equal hand reptile farmer bilaterally. Lungs clear x 5 lobes. IV Site on Arrival: 20 gauge in the left anticubital. IV Fluids: 0.9% NaCl at KVO. 0 mL infused prior to grass farm laborer. Oxygen started at 2liters/min via nasal canula. right groin was prepped with chloroprep then draped in the usual sterile fashion. right radial was prepped with chloroprep then draped in the usual sterile fashion. Physician notified. Baseline sample Acquired. HR: 71 BPM. Current Diagnosis : NSTEMI. Physician arrived. Physician scrubbed in. Immediate Pre-Procedure Time Out. Correct Patient: Yes; Correct Procedure: Yes; Correct Site: Yes; Correct Patient Position: Yes; Correct Supplies: Yes; Dried Flammable Prep: Yes; Blood Products Available: N/A;. Lidocaine 1% infiltrated to the right groin. Ultrasound being used to obtain access. Arterial access obtained with micropuncture set. A 5 irish JL4 catheter in over wire. Multiple views taken of left coronary artery. Catheter removed over the standard wire. A 5 irish JR4 catheter in over wire. Multiple views taken of right coronary artery. Catheter removed over the standard wire. A 5 irish Angled Pig catheter in over wire. EDP Sample taken: LV 113/-1,19; HR: 69 BPM; SpO2: 98%. LV gram performed in RODRÍGUEZ @ 10 mL/second for a total of 30 mL. EDP Sample taken: LV 113/1,21; HR: 56 BPM; SpO2: 98%. Pullback taken: LV 112/2,19; AO 111/65(85); Mean: , Peak to Peak: 0mmHg, SEP: ; HR: 66 BPM; SpO2: 98%. Catheter removed over the standard wire. A Right femoral angiogram was performed to determine safe placement of closure device. A Angio-Seal VIP ([facility]) was successful obtaining hemostatsis at the Right Femoral artery insertion site. Post Procedure: Pulses reassessed and unchanged. PERRLA. Strong, equal hand reptile farmer bilaterally. No VTE prophylaxis required. Medication's Wasted: Heparin = 1000 units. Medication's Wasted: Other = Fentanyl 50 mcg. Complications: None. Estimated blood loss: 5mL-10mL. Responsiveness - Normal response to verbal stimuli; alert and oriented, PERRLA. Vital chart was stopped. Airway - Unaffected, no intervention required; spontaneous ventilation. Circulation: W/N/L, pulses unchanged. Nausea/Vomiting: No. Procedure completed. Patient transferred by bed to 1st floor. Access Site Site: Right Femoral artery Sheath Size: 6 Fr Hemostasis Method: Angio-Seal VIP ([facility]) Hemostasis Success: Successful Procedure Medications Start: 11:42 AM Stop: 11:42 AM Medication: Versed Amount: 1 mg Route: I.V. Start: 11:42 AM Stop: 11:42 AM Medication: Fentanyl Amount: 25 mcg Route: I.V. Start: 11:52 AM Stop: 11:52 AM Medication: Fentanyl Amount: 25 mcg Route: I.V. Start: 11:55 AM Stop: 11:55 AM Medication: Versed Amount: 1 mg Route: I.V. Start: 11:58 AM Stop: 11:58 AM Medication: Versed Amount: 1 mg Route: I.V. Start: 12:02 PM Stop: 12:02 PM Medication: Versed Amount: 1 mg Route: I.V. I, the attending physician, have reviewed and verified all procedure medications. Yes, all medications given per verbal order History/Risk Factors Hypertension: No Dyslipidemia: Yes Peripheral Arterial Disease (PAD): No Myocardial Infarction (MO): Yes Obesity: Yes Renal Disease: No Prior Interventions PCI: Yes CABG: No Valve Surgery: No Date of PCI: 11/07/2022 Report Signatures Finalized by Baltazar Jackman MD on 12/29/2023 07:44 PM
--- NOTE | 2023-12-23 07:47 | P.PN_ITS ---
Subjective 2 Subjective: Patient had coronary angiogram not demonstrated any significant CAD. Vitals/I&O/Wt Last Vital Signs Temp 97.3 F L 12/23/23 04:00 Pulse 68 12/23/23 06:00 Resp 18 12/23/23 04:00 BP 93/61 12/23/23 04:00 Pulse Ox 95 12/23/23 04:00 O2 Del Method CPAP 12/23/23 04:00 12/22/23 12/23/23 12/23/23 22:59 06:59 14:59 Intake Total 240 / 1011.25 450 / 1461.25 Output Total 0 / 0 0 / 0 Balance 240 / 1011.25 450 / 1461.25 Weight last 48 hrs Weight 306 lb Weight 300 lb Weight 300 lb Physical Exam 2 Narrative: GENERAL: Patient is alert, awake and oriented x3. [] NECK: No jugular vein distension. [] HEENT: No cyanosis. No icterus. No pallor. [] HEART: Regular S1 and S2. No murmur, rub or gallop. [] LUNGS: Clear to auscultate bilaterally. [] CENTRAL NERVOUS SYSTEM: Grossly nonfocal. [] EXTREMITIES: Lower extremities with 1+ edema bilaterally. Data 12/22/23 07:04 12/23/23 03:38 A&P Assessment and plan (1) Atherosclerotic heart disease of [place] coronary artery with other forms of angina pectoris: (2) Chest pain: Qualifiers: Chest pain type: precordial pain Qualified Code(s): R07.2 - Precordial pain (3) Ventricular arrhythmia: (4) Aberrant right subclavian artery: (5) Heart failure with improved ejection fraction (HFimpEF): (6) Dyslipidemia: (7) Elevated blood pressure reading: Plan Coronary angiogram did not reveal significant CAD. Prior LAD stent is patent. Will continue with dual antiplatelet therapy Will uptitrate isosorbide. Continue Entresto and Coreg. On LV gram, EF is 45%. Echo performed recently was very limited quality. Thank you for involving us with care of this patient. We will continue to follow. Please call with questions Attestations 2 Medical Necessity Statement*: Care expected to cross 2 midnights. Coding Level of Care Code Acute Code for [facility] Diagnoses Atherosclerotic heart disease of [place] coronary artery with other forms of angina pectoris I25.118 Precordial pain R07.2 Chest pain type: precordial pain Ventricular arrhythmia I49.9 Aberrant right subclavian artery Q27.8 Heart failure with improved ejection fraction (HFimpEF) I50.32 Dyslipidemia E78.5 Elevated blood pressure reading R03.0
[2023-12-23] MEDS: magnesium lactate 84 mg Tablet 168 MG PO (09:10)
[2023-12-23] MEDS: aspirin 81 mg EC Tablet PO (09:10)
[2023-12-23] MEDS: isosorbide mononitrate ER 30 mg Tablet PO (09:10)
[2023-12-23] MEDS: clopidogrel 75 mg Tablet PO (09:11)
[2023-12-23] MEDS: pantoprazole DR 40 mg Tablet PO (09:11)
[2023-12-23] MEDS: diphenhydrAMINE 50 mg Capsule PO (10:40)
[2023-12-23] MEDS: metoprolol tartrate 25 mg Tablet PO ×2 (10:40→21:14)
[2023-12-23] MEDS: sodium chloride 0.9% 1,000 ML 50 ML IV (10:41)
--- NOTE | 2023-12-23 11:18 | PC.NURSE ---
Patient leaves floor for catheter builder at 1120.
--- NOTE | 2023-12-23 11:43 | W.PM.OPSUD ---
Surgery/Procedure H&P Update DATE OF PROCEDURE: December 23, 2023 DATE H&P PERFORMED: 12/21/23 H&P UPDATE INFORMATION: I have reviewed H&P completed within last 30 days, I have examined patient prior to procedure and No changes to prior documentation PREOP DIAGNOSIS: Worsening angina/abnormal stress test PRIMARY INDICATION FOR PROCEDURE: Worsening angina/abnormal stress test PLANNED PROCEDURE: Left heart cath with possible percutaneous coronary intervention PATIENT REASSESSED PRIOR TO SEDATION, WITH NO CHANGE NOTED: Yes PHYSICAL EXAM: alert, oriented x 3, clear to auscultation bilaterally and regular rate & rhythm AIRWAY EVAL/ANESTHESIA PLAN: normal airway, ASA III, Local Anesthesia, Risks, benefits & alternatives of sedation and/or procedure discussed and Patient agrees to continue as planned ADDITIONAL INFORMATION: Moderate sedation
--- NOTE | 2023-12-23 12:15 | P.PN_ITS ---
Subjective 2 Subjective: chest pain free plan for cath 11 am today pt feels ok Vitals/I&O/Wt Last Vital Signs Temp 98 F 12/23/23 08:45 Pulse 68 12/23/23 06:00 Resp 18 12/23/23 08:45 BP 137/91 12/23/23 08:45 Pulse Ox 95 12/23/23 04:00 O2 Del Method CPAP 12/23/23 04:00 12/22/23 12/23/23 12/23/23 22:59 06:59 14:59 Intake Total 240 / 1011.25 450 / 1461.25 Output Total 0 / 0 0 / 0 Balance 240 / 1011.25 450 / 1461.25 Weight last 48 hrs Weight 138.799 kg Weight 136.078 kg Physical Exam 2 Narrative: General: Alert oriented x3, patient seen laying in bed appearing comfortable at this time, has active chest pain. HEENT: Normocephalic, atraumatic, EOMI, breathing room air Cardio: Regular rate rhythm, normal S1-S2, Respiratory: Good bilateral air entry, no wheezes no rhonchi appreciated GI: Abdomen soft, nontender, nondistended, bowel sounds + Behavior: Appropriate and cooperative Extremities: no edema, no cyanosis Data 12/22/23 07:04 12/23/23 03:38 A&P Assessment and plan (1) CHF (congestive heart failure), NYHA class II: Qualifiers: Congestive heart failure type: systolic Congestive heart failure chronicity: acute on chronic Qualified Code(s): I50.23 - Acute on chronic systolic (congestive) heart failure (2) Coronary artery disease: Qualifiers: Coronary Disease-Associated Artery/Lesion type: [place] artery [place] vs. transplanted heart: [place] heart Associated angina: without angina Qualified Code(s): I25.10 - Atherosclerotic heart disease of [place] coronary artery without angina pectoris (3) Unstable angina: (4) Obesity: Plan #Unstable angina #History of ST elevation [place] status post stent 1 year ago #Strong family history of heart disease in mom #Hyperlipidemia #Hypertension #Palpitations, chest pain secondary to above ? Placed on ACS protocol: Aspirin, Plavix, therapeutic Lovenox, metoprolol, Imdur ? N.p.o. at midnight today for cardiac angiogram in a.m. ? Initial 2 troponins negative, EKG without any ischemic changes ? Await 6-hour troponin ? May use Nitropaste if needed ? Consult cardiology. discussed with cardiology - Plan for cath today DC IN AM if remains stable Full code DVT prophylaxis: On therapeutic Lovenox Attestations 2 Medical Necessity Statement*: Patient requires continued hospital stay for close monitoring and further management Diagnoses Acute on chronic systolic congestive heart failure, NYHA class 2 I50.23 Congestive heart failure type: systolic Congestive heart failure chronicity: acute on chronic Coronary artery disease involving [place] coronary artery of [place] heart without angina pectoris I25.10 Coronary Disease-Associated Artery/Lesion type: [place] artery [place] vs. transplanted heart: [place] heart Associated angina: without angina Unstable angina I20.0 Obesity E66.9
--- NOTE | 2023-12-23 12:26 | PC.NURSE ---
Patient presents back to [facility] [employer] at 1220, with and anigoseal. No hematoma noted at site.
--- NOTE | 2023-12-23 14:18 | PC.NURSE ---
Dr Jackman said to hold her 1330 Lovenox and the one for aimee at 0130.
[2023-12-23] MEDS: atorvastatin 40 mg Tablet 20 MG PO (18:03)
[2023-12-24] VITALS: BP 125/73; PULSE 68; RESP 18; TEMP 37.1; O2SAT 95
[2023-12-24] MEDS: enoxaparin 150 mg/mL Syringe 140 MG SUBCUT (01:32)
[2023-12-24 03:55] VITALS: BP 146/95; PULSE 78; RESP 16; TEMP 36.7; O2SAT 97
[2023-12-24 06:00] VITALS: PULSE 62
--- NOTE | 2023-12-24 07:10 | PM.PN ---
Subjective Subjective: Patient doing well. No chest pain. Vitals/I&O/Wt Last Vital Signs Temp 98.1 F 12/24/23 03:55 Pulse 62 12/24/23 06:00 Resp 16 12/24/23 03:55 BP 146/95 12/24/23 03:55 Pulse Ox 97 12/24/23 03:55 O2 Del Method Room Air 12/23/23 16:00 12/23/23 12/24/23 12/24/23 22:59 06:59 14:59 Intake Total 240 / 480 952.5 / 1432.5 Balance 240 / 480 952.5 / 1432.5 Weight last 48 hrs Weight 306 lb Physical Exam Narrative: GENERAL: Patient is alert, awake and oriented x3. [] NECK: No jugular vein distension. [] HEENT: No cyanosis. No icterus. No pallor. [] HEART: Regular S1 and S2. No murmur, rub or gallop. [] LUNGS: Clear to auscultate bilaterally. [] CENTRAL NERVOUS SYSTEM: Grossly nonfocal. [] EXTREMITIES: Lower extremities with 1+ edema bilaterally. Data 12/22/23 07:04 12/23/23 03:38 A&P Assessment and plan (1) Atherosclerotic heart disease of [place] coronary artery with other forms of angina pectoris: (2) Chest pain: Qualifiers: Chest pain type: precordial pain Qualified Code(s): R07.2 - Precordial pain (3) Ventricular arrhythmia: (4) Aberrant right subclavian artery: (5) Heart failure with improved ejection fraction (HFimpEF): (6) Dyslipidemia: (7) Elevated blood pressure reading: Plan Patient doing well. No chest pain. Will continue dual antiplatelet therapy. Uptitrating isosorbide dose Thank you for involving us with care of this patient. Patient is stable to be discharged from cardiology standpoint. Please call with questions Attestations Medical Necessity Statement*: Care expected to cross 2 midnights. Coding Level of Care Code Acute Code for [facility] Diagnoses Atherosclerotic heart disease of [place] coronary artery with other forms of angina pectoris I25.118 Precordial pain R07.2 Chest pain type: precordial pain Ventricular arrhythmia I49.9 Aberrant right subclavian artery Q27.8 Heart failure with improved ejection fraction (HFimpEF) I50.32 Dyslipidemia E78.5 Elevated blood pressure reading R03.0
[2023-12-24 07:41] VITALS: BP 129/78; PULSE 74; RESP 27; TEMP 36.6; O2SAT 93
[2023-12-24 08:22] VITALS: PULSE 73; RESP 18; O2SAT 97
--- NOTE | 2023-12-24 08:50 | PM.DCS ---
Discharge Providers Date of Admission: 12/21/23 12:33 Date of Discharge: December 24, 2023 Attending Provider at Admission: Jaja Pendleton MD Attending Provider at Discharge: Jaja Pendleton MD Primary Care Provider: Yulisa De La Cruz Diagnoses at Discharge Discharge Diagnosis (1) Atherosclerotic heart disease of [place] coronary artery with other forms of angina pectoris: Status: Acute (2) Chest pain: Status: Resolved Qualifiers: Chest pain type: precordial pain Qualified Code(s): R07.2 - Precordial pain (3) Ventricular arrhythmia: Status: Resolved (4) Aberrant right subclavian artery: Status: Acute (5) Heart failure with improved ejection fraction (HFimpEF): Status: Acute (6) Dyslipidemia: Status: Acute (7) Elevated blood pressure reading: Status: Resolved Reason for Visit Reason for Visit: chest pain Hospital Course Hospital Course Admitted for chest pain/palpitations. She was placed on ACS protocol and underwent cardiac angiogram during hospital stay which did not show any new occlusions. Patient to be discharged home in stable condition. She was advised to stop smoking. Patient to follow-up with cardiology as an outpatient. Physical Exam Narrative: General: Alert oriented x3, patient seen laying in bed appearing comfortable at this time, has active chest pain. HEENT: Normocephalic, atraumatic, EOMI, breathing room air Cardio: Regular rate rhythm, normal S1-S2, Respiratory: Good bilateral air entry, no wheezes no rhonchi appreciated GI: Abdomen soft, nontender, nondistended, bowel sounds + Behavior: Appropriate and cooperative Extremities: no edema, no cyanosis Discharge Data Studies Completed and Pending Completed Studies During Hospitalization Category Date Time Status XR chest 1V portable [id number] Stat Exams 12/21/23 09:44 Completed Pending at discharge Category Date Time Status [employer] M[employer] T[employer]ER request for service Routine Exams 12/23/23 07:09 Taken Radiology Impressions Chest X-Ray 12/21/23 09:44 IMPRESSION: No acute findings seen of the chest. Laboratory Results WBC 8.25 10^3/uL (3.29-11.43) 12/22/23 07:04 RBC 4.23 10^6/uL (3.85-5.65) 12/22/23 07:04 Hgb 13.70 g/dL (11.27-16.99) 12/22/23 07:04 Hct 41.3 % (36-47) 12/22/23 07:04 MCV 97.6 fl (85-98) 12/22/23 07:04 MCH 32.4 pg (27-33) 12/22/23 07:04 MCHC 33.2 g/dL (30-55) 12/22/23 07:04 RDW 13.4 % (12.1-15.1) 12/22/23 07:04 Plt Count 252 10^3/cmm (157-399) 12/22/23 07:04 MPV 10.3 fL (7.4-10.4) 12/22/23 07:04 Neut % (Auto) 59.2 % 12/22/23 07:04 Lymph % (Auto) 32.2 % 12/22/23 07:04 [place] % (Auto) 5.9 % 12/22/23 07:04 Eos % (Auto) 1.8 % 12/22/23 07:04 Baso % (Auto) 0.8 % 12/22/23 07:04 Neut # (Auto) 4.87 10^3/uL (1.8-7.7) 12/22/23 07:04 Lymph # (Auto) 2.7 10^3/uL (0.8-4.8) 12/22/23 07:04 [place] # (Auto) 0.5 10^3/uL (0.2-0.9) 12/22/23 07:04 Eos # (Auto) 0.2 10^3/uL (0.0-0.8) 12/22/23 07:04 Baso # (Auto) 0.1 10^3/uL (0.0-0.1) 12/22/23 07:04 Nucleated RBC % (auto) 0 % 12/22/23 07:04 Nucleated RBCs # 0.0 /100WBC 12/22/23 07:04 Sodium 143 mmol/L (136-145) 12/23/23 03:38 Potassium 4.3 mmol/L (3.5-5.1) 12/23/23 03:38 Chloride 112 mmol/L (98-107) H 12/23/23 03:38 Carbon Dioxide 23 mmol/L (22-29) 12/23/23 03:38 Anion Gap 12.3 (5-19) 12/23/23 03:38 BUN 13 mg/dL (6-20) 12/23/23 03:38 Creatinine 0.7 mg/dL (0.5-0.9) 12/23/23 03:38 GFR Calculation 89.7 mL/min (90-130) L 12/23/23 03:38 Glucose 108 mg/dL (65-115) 12/23/23 03:38 Estimat Average Glucose 134 12/21/23 09:49 Hemoglobin A1c 6.3 % (4.0-6.0) H 12/21/23 09:49 Calculated Osmolality 297 mOsm/kg (285-295) H 12/23/23 03:38 Calcium 8.2 mg/dL (8.5-10.5) L 12/23/23 03:38 Magnesium 1.8 mg/dL (1.7-2.3) 12/23/23 03:38 Total Bilirubin 0.2 mg/dL (0.15-1.2) 12/23/23 03:38 AST 20 U/L (0-32) 12/23/23 03:38 ALT 16 U/L (0-33) 12/23/23 03:38 Alkaline Phosphatase 75 U/L (35-105) 12/23/23 03:38 Troponin T Baseline < 6 ng/L (0-10) 12/21/23 09:49 Troponin T 120 Minute 6.00 ng/L (0-10) 12/21/23 11:18 Delta Troponin T 0.38105 ABS# (0-10) 12/21/23 11:18 Troponin T Hi Sens 6Hr 6.00 ng/L (0-10) 12/21/23 18:05 Troponin T Hi Sens 6Hr Delta 0.75606 ng/L (0-12) 12/21/23 18:05 Total Protein 5.8 g/dL (6.6-8.7) L 12/23/23 03:38 Albumin 3.6 g/dL (3.5-5.2) 12/23/23 03:38 Globulin 2.2 g/dL (1.3-4.6) 12/23/23 03:38 Triglycerides 216 mg/dL (0-150) H 12/21/23 11:18 Cholesterol 146 mg/dL (0-200) 12/21/23 11:18 LDL Cholesterol, Calc 60 mg/dL (50-129) 12/21/23 11:18 HDL Cholesterol 43 mg/dL (60-100) L 12/21/23 11:18 LDL/HDL Ratio 1.40 RATIO (0.00-3.22) 12/21/23 11:18 Cholesterol/HDL Ratio 3.40 mg/dL (0.0-4.40) 12/21/23 11:18 TSH 1.67 uIU/mL (0.27-4.20) 12/21/23 11:18 Urine Color Colorless (Yellow) 12/21/23 10:18 Urine Appearance Clear (CLEAR) 12/21/23 10:18 Urine pH 7 (5-7) 12/21/23 10:18 Ur Specific [place] 1.005 (1.005-1.030) 12/21/23 10:18 Urine Protein Neg (Negative) 12/21/23 10:18 Urine Glucose (UA) Norm (Normal) 12/21/23 10:18 Urine Ketones Negative (Negative) 12/21/23 10:18 Urine Blood 2+ (Negative) H 12/21/23 10:18 Urine Nitrate Negative (Negative) 12/21/23 10:18 Urine Bilirubin Neg (Negative) 12/21/23 10:18 Urine Urobilinogen Norm mg/dL (Negative) 12/21/23 10:18 Ur Leukocyte Esterase Negative (Negative) 12/21/23 10:18 Urine RBC Rare /hpf (0-2) 12/21/23 10:18 Urine WBC None /hpf (0-5) 12/21/23 10:18 Ur Squamous Epith Cells None /hpf (0-5) 12/21/23 10:18 Amorphous Sediment Not Reportable 12/21/23 10:18 Urine Bacteria Trace /hpf (NONE) 12/21/23 10:18 Vitals Last Vital Signs Temp 97.8 F 12/24/23 07:41 Pulse 73 12/24/23 08:22 Resp 18 12/24/23 08:22 BP 129/78 12/24/23 07:41 Pulse Ox 97 12/24/23 08:22 O2 Del Method Room Air 12/24/23 08:22 Discharge Plan Discharge Patient Disposition: Home Condition: Stable Prescriptions: New metoprolol succinate 25 mg tablet extended release 24 hr 25 mg PO DAILY Qty: 30 0RF Continued clopidogrel 75 mg tablet 75 mg PO DAILY Qty: 90 3RF Zocor 40 mg tablet 40 mg PO QPM Qty: 90 3RF Lasix 20 mg tablet 20 mg PO QAM Qty: 90 0RF sacubitril-valsartan 49-51 mg tablet 1 tab PO BID Qty: 60 1RF aspirin 81 mg tablet,delayed release (DR/EC) 81 mg PO DAILY Qty: 90 3RF cetirizine 10 mg tablet 10 mg PO DAILY Changed isosorbide mononitrate 30 mg tablet extended release 24 hr 60 mg PO DAILY Qty: 30 1RF Discontinued carvedilol 3.125 mg tablet 6.25 mg PO BID Qty: 180 2RF Discharge Orders: Discharge Order (Routine); Ordered 12/24/23 Ordered By: aJja Pendleton Referrals: Samra Ernandez FNP [Nurse Practitioner] - 01/06/24 2:00 pm Yulisa De La Cruz PA [Primary Care Provider] - 12/31/23 2:20 am Discharge Diet: Cardiac Discharge Activity: Resume usual activity Patient Instructions: Metoprolol (By mouth) (Lopressor, Toprol XL), Heart Failure (DC), Heart Catheterization (DC), CHF Stoplight, Chest Pain Stoplight, Opioid Safety, Post Angiogram Home Care Instructions Discharge Attestations Time Spent in Discharge Care*: less than 30 min Quality Metrics Clinical Quality Measures [ No reported AMI, CVA or VTE this stay] Coding Level of Care Code Acute Code for [facility] Diagnoses Atherosclerotic heart disease of [place] coronary artery with other forms of angina pectoris I25.118 Precordial pain R07.2 Chest pain type: precordial pain Ventricular arrhythmia I49.9 Aberrant right subclavian artery Q27.8 Heart failure with improved ejection fraction (HFimpEF) I50.32 Dyslipidemia E78.5 Elevated blood pressure reading R03.0
[2023-12-24] MEDS: isosorbide mononitrate ER 30 mg Tablet PO (09:18)
[2023-12-24] MEDS: metoprolol tartrate 25 mg Tablet PO (09:18)
[2023-12-24] MEDS: magnesium lactate 84 mg Tablet 168 MG PO (09:18)
[2023-12-24] MEDS: aspirin 81 mg EC Tablet PO (09:18)
[2023-12-24] MEDS: clopidogrel 75 mg Tablet PO (09:18)
[2023-12-24] MEDS: pantoprazole DR 40 mg Tablet PO (09:18)
[2023-12-24 10:51] VITALS: PULSE 73; RESP 18; O2SAT 97
--- NOTE | 2023-12-24 13:05 | PC.NURSE ---
Patient discharge to home with via a private car. Discharge papers given and patient states understanding.
== END 2023-12-24 11:05 | disposition home or self-care (01) | DRG 287 ==
LOC: ER 10:37 → CSU 12:33
PROVIDERS: Internal Medicine; Admitting Provider Internal Medicine; Emergency Provider Emergency Medicine; PCP Physician Assistant; Visit Provider Internal Medicine
PROC: B2111ZZ Fluoroscopy of Multiple Coronary Arteries using Low Osmolar Contrast (ICD-10-PCS; principal; 2023-12-23 11:00)
DX: I25.118 Atherosclerotic heart disease of native coronary artery with other forms of angina pectoris (principal); I49.9 Cardiac arrhythmia, unspecified; Q27.8 Other specified congenital malformations of peripheral vascular system; Z79.02 Long term (current) use of antithrombotics/antiplatelets; Z79.82 Long term (current) use of aspirin; E78.5 Hyperlipidemia, unspecified; E66.01 Morbid (severe) obesity due to excess calories; I11.0 Hypertensive heart disease with heart failure; I50.9 Heart failure, unspecified; I25.2 Old myocardial infarction; Z82.49 Family history of ischemic heart disease and other diseases of the circulatory system; Z72.0 Tobacco use
CPT/HCPCS: 36415; 71045; 80053; 80061; 81001; 83036; 83735; 84443; 84484; 85025; 93005; 93458; 96372; 96374; 96375; 96376; 99152; 99153; 99285; A9270; C1760; C1769; C1887; C1894; G0269; J1644; J1650; J2250; J2270; J2405; J3010; J7030; J7040; Q0163; Q9967

== ENCOUNTER → 2024-01-06 14:30 | Outpatient (BNVA) | payer BC, SELFPAY | PROVIDERS: PCP Physician Assistant; Visit Provider Nurse Practitioner Family | DX: I25.10 Atherosclerotic heart disease of native coronary artery without angina pectoris (principal); I50.23 Acute on chronic systolic (congestive) heart failure; Z09 Encounter for follow-up examination after completed treatment for conditions other than malignant neoplasm | CPT/HCPCS: 36415; 80048; 83880 ==

== ENCOUNTER 2024-02-21 08:50 | Outpatient (CLI) | payer BC, SELFPAY ==
[2024-02-21 09:41] LABS: Blood Urea Nitrogen 12 mg/dL (6-20); Carbon Dioxide 22 mmol/L (22-29); Chloride 105 mmol/L (98-107); Glomerular Filtration Rate 89.7 mL/min (90-130); Glucose 184 mg/dL (65-115); NT Pro B Type Natriuretic Pept 109 pg/mL (0-125); Osmolality Calculated 293 mOsm/kg (285-295); Sodium 139 mmol/L (136-145)
[2024-02-21 09:47] LABS: Anion Gap 16.2 (5-19); Potassium 4.2 mmol/L (3.5-5.1)
== END 2024-02-21 08:51 | disposition home or self-care (01) ==
PROVIDERS: PCP Physician Assistant; Visit Provider Nurse Practitioner Family
DX: I50.23 Acute on chronic systolic (congestive) heart failure (principal)
CPT/HCPCS: 80048; 83880

== ENCOUNTER 2024-06-09 18:48 | Emergency (ER) | payer BC, SELFPAY ==
--- NOTE | 2024-06-09 18:51 | USR_ITS ---
PROCEDURE INFORMATION: Exam: US Duplex Left Lower Extremity Veins, Limited Exam date and time: 06/09/2024 7:03 PM Age: 48 years old Clinical indication: Leg, lower; Patient HX: Left calf pain x 2 days. ; Additional info: Swelling TECHNIQUE: Imaging protocol: Real-time duplex ultrasound of the left extremity with 2-D theodore scale, color Doppler flow and spectral waveform analysis including responses to compression and other maneuvers (when performed) with image documentation. Limited exam focused on the left lower extremity veins. COMPARISON: No relevant prior studies available. FINDINGS: Left deep veins: Unremarkable. The common femoral, femoral, proximal profunda femoral and popliteal veins are patent without thrombus. Normal Doppler waveforms. Normal compressibility and/or augmentation response. Superficial veins: Greater saphenous vein at the saphenofemoral junction is patent without thrombus. Soft tissues: Unremarkable. US/CV venous duplex [facility] [id number] IMPRESSION: No evidence of acute deep venous thrombosis. Normal exam.
[2024-06-09 19:32] VITALS: BP 143/77; PULSE 97; RESP 16; TEMP 36.4; O2SAT 98; BMI 49.4
--- NOTE | 2024-06-09 20:35 | W.ED.EXTPRO ---
HPI - Extremity Problem General: Chief complaint: Extremity Injury, Lower Stated complaint: believes blood clot Left left at knee Time Seen by Provider: 06/09/24 19:54 Source: patient Mode of arrival: ambulatory Limitations: no limitations History of Present Illness: 48-year-old female who states she has been having left leg pain since Saturday. States pains been sharp in nature mainly in her knee states she is concerned she may have a blood clot states pain is worse with palpation along with walking states she is also had some upper back pain is also worse with movement or palpation she denies any chest pain denies any fevers. Associated symptoms: Deny chest pain, fever(s) or rash Related Data Home Medications Medication Instructions Recorded Confirmed cetirizine 10 mg tablet 10 mg PO DAILY 12/21/23 06/03/24 albuterol sulfate 90 mcg/actuation 2 puff inhalation Q4H PRN 06/03/24 06/03/24 aerosol inhaler (Proventil HFA) amoxicillin 875 mg-potassium 1 tab PO Q12H 06/03/24 06/03/24 clavulanate 125 mg tablet benzonatate 100 mg capsule 100 mg PO TID PRN 06/03/24 06/03/24 fluticasone 100 mcg-salmeterol 50 1 inh inhalation BID 06/03/24 06/03/24 mcg/dose blistr powdr for inhalation (Wixela Inhub) potassium citrate 99 mg capsule mg PO 06/03/24 06/03/24 prednisone 20 mg tablet 40 mg PO DAILY 06/03/24 06/03/24 Previous Rx's Medication Instructions Recorded clopidogrel 75 mg tablet 75 mg PO DAILY #90 tabs 12/05/22 simvastatin 40 mg tablet (Zocor) 40 mg PO QPM #90 tabs 10/31/23 sacubitril 49 mg-valsartan 51 mg 1 tab PO BID #60 tabs 12/06/23 tablet aspirin 81 mg tablet,delayed 81 mg PO DAILY #90 tabs 12/20/23 release isosorbide mononitrate 30 mg 60 mg (2 x 30 mg) PO DAILY #30 tabs 12/24/23 tablet,extended release 24 hr metoprolol succinate 25 mg 25 mg PO DAILY #30 tabs 12/24/23 tablet,extended release 24 hr furosemide 20 mg tablet See Rx Instructions .Route 02/26/24 .COMPLEX #90 tabs hydrocodone 5 mg-acetaminophen 325 1 tab PO Q6H PRN pain #14 tabs 06/09/24 mg tablet Allergies Allergy/AdvReac Type Severity Reaction Status Date / Time No Known Allergies Allergy Verified 06/03/24 13:33 Review of Systems Const: Denies: fever(s), chills, body aches or change in appetite ENMT: Denies: throat pain or dental pain Card: Denies: chest pain Resp: Denies: dyspnea GI: Denies: abdominal pain, nausea, vomiting or diarrhea Musc: Reports: back pain and extremity pain; Denies: neck pain Skin/Breast: Denies: rash Neuro: Denies: headache(s) PFSH ED PFSH: Medical History Coronary artery disease STEMI (ST elevation myocardial infarction) Surgical History Presence of stent in LAD coronary artery Social History Smoking and tobacco/nicotine status: current every day tobacco/nicotine user Physical Exam Const: COMMON NORMALS: no acute distress, patient oriented x3 and healthy appearing HENMT: COMMON NORMALS: normocephalic and atraumatic HEAD & SCALP: normocephalic and atraumatic Eye: COMMON NORMALS: conjunctivae normal CONJUNCTIVA: Yes conjunctivae normal Neck/C-Spine: COMMON NORMALS: full ROM and supple Chest: COMMONS NORMALS: normal inspection of the chest Resp: COMMON NORMALS: normal respiratory effort, No retractions, No use of accessory muscles and clear to auscultation bilaterally AUSCULTATION: clear to auscultation bilaterally Cardio: COMMON NORMALS: regular rate and regular rhythm RATE: regular rate RHYTHM: regular rhythm Back/Pelvis: OTHER: Tenderness over right side thoracic paraspinal muscle no midline tenderness also some tenderness on left knee no warmth no signs of septic joint distal pulses sensation intact Extremity: COMMON NORMALS: normal to inspection and full ROM Neuro: COMMON NORMALS: patient oriented x3, moves all extremities and no focal motor deficits Psych: COMMON NORMALS: mental status grossly normal, Normal thought process present and cooperative THOUGHT PROCESS: Normal thought process present Skin: COMMON NORMALS: no rashes or lesions noted and no wounds GENERAL SKIN EXAM: no rashes or lesions noted Course Vital Signs: Vital signs: Vital Signs Temperature 97.5 F L 06/09/24 19:32 Pulse Rate 97 06/09/24 19:32 Respiratory Rate 16 06/09/24 19:32 Blood Pressure 143/77 06/09/24 19:32 Pulse Oximetry 98 06/09/24 19:32 Oxygen Delivery Me thod Room Air 06/09/24 19:32 MDM - Extremity (Nontraumatic) Medical Decision Making Patient presents here with left leg pain ultrasound showed no DVT her exam here is benign is likely arthritic pain no signs of septic joint she does have tenderness along her back that is likely muscle skeletal as well no chest pain we will prescribe her pain meds she stable for discharge follow-up PCP return if worsening. Lab Data Radiology Impressions Venous Duplex 06/09/24 18:51 IMPRESSION: No evidence of acute deep venous thrombosis. Normal exam. All radiology interpretation(s) finalized by discharge Discharge Plan Discharge Patient Disposition: Home Clinical Impression: Leg pain, left, Back pain, thoracic Condition: Stable Prescriptions: New hydrocodone-acetaminophen 5-325 mg tablet 1 tab PO Q6H PRN (Reason: pain) Qty: 14 0RF No Action potassium citrate 99 mg capsule PO albuterol sulfate [Proventil HFA] 90 mcg/actuation HFA aerosol inhaler 2 puff inhalation Q4H PRN amoxicillin-pot clavulanate 875-125 mg tablet 1 tab PO Q12H prednisone 20 mg tablet 40 mg PO DAILY benzonatate 100 mg capsule 100 mg PO TID PRN fluticasone propion-salmeterol [Wixela Inhub] 100-50 mcg/dose blister with device 1 inh inhalation BID clopidogrel 75 mg tablet 75 mg PO DAILY Qty: 90 3RF Zocor 40 mg tablet 40 mg PO QPM Qty: 90 3RF sacubitril-valsartan 49-51 mg tablet 1 tab PO BID Qty: 60 1RF aspirin 81 mg tablet,delayed release (DR/EC) 81 mg PO DAILY Qty: 90 3RF furosemide 20 mg tablet See Rx Instructions .ROUTE .COMPLEX Qty: 90 3RF Dose Instruction: TAKE 1 TABLET BY MOUTH EVERY MORNING Rx Instructions: TAKE 1 TABLET BY MOUTH EVERY MORNING cetirizine 10 mg tablet 10 mg PO DAILY metoprolol succinate 25 mg tablet extended release 24 hr 25 mg PO DAILY Qty: 30 0RF isosorbide mononitrate 30 mg tablet extended release 24 hr 60 mg PO DAILY Qty: 30 1RF Discharge Orders: Discharge ED (Routine); Ordered 06/09/24 Ordered By: Jerman Louie Referrals: Yulisa De La Cruz PA [Primary Care Provider] - 4-7 days Discharge Diet: Advance as tolerated Discharge Activity: Resume usual activity Patient Instructions: Leg Pain (ED), Opioid Safety Coding 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
[2024-06-09] MEDS: HYDROcodone-acetaminophen 5-325 mg Tablet 1 TAB PO (20:37)
[2024-06-09 20:48] VITALS: BP 126/84; PULSE 97; O2SAT 96
== END 2024-06-09 20:49 | disposition home or self-care (01) ==
PROVIDERS: Emergency Provider Emergency Medicine; PCP Physician Assistant
DX: M79.605 Pain in left leg (principal); M54.6 Pain in thoracic spine; Z79.02 Long term (current) use of antithrombotics/antiplatelets; Z79.82 Long term (current) use of aspirin; I25.10 Atherosclerotic heart disease of native coronary artery without angina pectoris; I25.2 Old myocardial infarction; Z72.0 Tobacco use
CPT/HCPCS: 93971; 99284

== ENCOUNTER 2024-09-01 06:15 | Observation (INO) | payer BC, SELFPAY ==
[2024-09-01] VITALS (12 sets, daily range): BP systolic 104–130; BP diastolic 65–90; PULSE 55–104; RESP 13–21; TEMP 36.6; O2SAT 94–98; BMI 48.4
--- NOTE | 2024-09-01 06:28 | XRR_ITS ---
PROCEDURE INFORMATION: Exam: XR Chest Exam date and time: 09/01/2024 6:41 AM Age: 48 years old Clinical indication: Cough and shortness of breath; Additional info: Dyspnea/cough TECHNIQUE: Imaging protocol: Radiologic exam of the chest. Views: 1 view. COMPARISON: CR XR chest 2V* [id number] 06/12/2024 8:44 AM FINDINGS: Lungs: Minimal hypoventilatory changes at the left lung base. Pleural spaces: Unremarkable. No pleural effusion. No pneumothorax. Heart/Mediastinum: Unremarkable. No cardiomegaly. Bones/joints: Unremarkable. XR/XR chest 1V portable [id number] IMPRESSION: No acute findings.
--- NOTE | 2024-09-01 06:32 | ED_ITS ---
HPI - Chest Pain 2 General: Chief Complaint: Chest Pain Stated Complaint: chest pain Time Seen by Provider: 09/01/24 06:26 History of Present Illness: 48-year-old female with a history of cor onary artery disease previous LAD stents for a STEMI in October 2022 presents to the emergency room with complaint of chest pain pain in her neck radiating to her left arm. She has had it intermittently for over a week. She been seen by her doctor really after recently after she bruised her right leg. She was started on doxycycline intermittently for DVT prophylaxis. Patient has a ischemic cardiomyopathy due to her previous [place] with an ejection fraction at 35%. She has not noticed anything that exacerbates or relieves her symptoms. She is on clopidogrel and aspirin she is not on any other anticoagulants. She is not having active chest pain at this time. Associated symptoms: Deny abdominal pain, dyspnea or fever(s) Related Data Home Medications Medication Instructions Recorded Confirmed cetirizine 10 mg tablet 10 mg PO DAILY 12/21/23 09/01/24 fluticasone 100 mcg-salmeterol 50 1 inh inhalation BID 06/03/24 09/01/24 mcg/dose blistr powdr for inhalation ([employer] Inhub) potassium citrate 99 mg capsule 99 mg PO DAILY 06/03/24 09/01/24 albuterol sulfate 90 mcg/actuation 2 puff inhalation Q4H PRN 09/01/24 09/01/24 aerosol inhaler Shortness Of Breath Or Wheezing furosemide 20 mg tablet 20 mg PO QAM 09/01/24 09/01/24 sacubitril 49 mg-valsartan 51 mg 1 tab PO BID 09/01/24 09/01/24 tablet (Entresto) Previous Rx's Medication Instructions Recorded clopidogrel 75 mg tablet 75 mg PO DAILY #90 tabs 12/05/22 simvastatin 40 mg tablet (Zocor) 40 mg PO QPM #90 tabs 10/31/23 aspirin 81 mg tablet,delayed 81 mg PO DAILY #90 tabs 12/20/23 release isosorbide mononitrate 30 mg 60 mg (2 x 30 mg) PO DAILY #30 tabs 12/24/23 tablet,extended release 24 hr metoprolol succinate 25 mg 25 mg PO DAILY #30 tabs 12/24/23 tablet,extended release 24 hr hydrocodone 5 mg-acetaminophen 325 1 tab PO Q6H PRN pain #14 tabs 15/24 mg tablet doxycycline hyclate 100 mg capsule 100 mg PO BID 10 days #20 caps 08/26/24 Allergies Allergy/AdvReac Type Severity Reaction Status Date / Time No Known Allergies Allergy Verified 09/01/24 06:25 Review of Systems 2 Const: Denies: fever(s) or chills Card: Reports: chest pain Resp: Denies: dyspnea GI: Denies: abdominal pain : Denies: dysuria, urinary frequency or urinary urgency Musc: Reports: neck pain and extremity pain; Denies: back pain Skin/Breast: Denies: rash PFSH ED 2 PFSH: Medical History (Updated 09/01/24 @ 13:18 by William Hilliard DO) CHF (congestive heart failure), NYHA class II Coronary artery disease STEMI (ST elevation myocardial infarction) Surgical History Presence of stent in LAD coronary artery Social History Smoking and tobacco/nicotine status: current every day tobacco/nicotine user Physical Exam 2 Const: GENERAL APPEARANCE: cooperative ORIENTATION/CONSCIOUSNESS: Yes awake, Yes oriented to person, Yes oriented to place and Yes oriented to time HENMT: COMMON NORMALS: normocephalic, atraumatic and hearing grossly normal bilaterally HEAD & SCALP: normocephalic and atraumatic Resp: COMMON NORMALS: normal respiratory effort, No retractions, No use of accessory muscles and clear to auscultation bilaterally AUSCULTATION: clear to auscultation bilaterally Cardio: COMMON NORMALS: regular rate, regular rhythm and No murmurs present (Cardio) RATE: regular rate RHYTHM: regular rhythm GI: COMMON NORMALS: Soft to palpation and No hepatosplenomegaly present A USCULTATION: Yes normoactive bowel sounds PALPATION: Yes Soft to palpation, No Tenderness to palpation present (GI), No Guarding due to palpation present (GI) and Yes No hepatosplenomegaly present Extremity: COMMON NORMALS: normal to inspection, capillary refill normal, no clubbing, cyanosis or edema, no calf tenderness and no pedal edema Neuro: SENSORIUM/ORIENTATION: Yes oriented to person, Yes oriented to place and Yes oriented to time Skin: COMMON NORMALS: no rashes or lesions noted GENERAL SKIN EXAM: no rashes or lesions noted Course 2 Vital Signs: Vital signs: Vital Signs Temperature 97.8 F 09/01/24 06:18 Pulse Rate 97 09/01/24 12:45 Respiratory Rate 16 09/01/24 12:45 Blood Pressure 130/72 09/01/24 10:11 Pulse Oximetry 96 09/01/24 12:45 Oxygen Delivery Me thod Room Air 09/01/24 12:45 MDM - Chest Pain Medical Decision Making [place] scoring for DVT and PE are -2 and 0 respectively. Review of patient's chart shows that in November 2023 myocardial perfusion scan was done. At that time it showed an area of uptake defect in the mid anterior wall subtle reversibility in the apical inferior region. Cath report From October 2022 when she was being treated for NSTEMI showed 100% ostial occluded LAD, she had a normal left main and 100% ostial occlusion of the LAD the left circumflex was nondominant with luminal irregularities no significant stenosis, RCA was a dominant vessel with luminal irregularities but no significant stenosis. In November 2023 patient had a stress test she did have a subsequent cath which showed luminal irregularities in the RCA and the circumflex seen the year before stent with still patent. Patient is still intermittently having this neck and arm pain does not seem to be musculoskeletal when she moves it is not really affected. Concerning especially given her history for angina. Her troponins and EKG do not show any acute changes. Discussed with Dr. Olivo will place her in observation consult cardiology Medical Records I reviewed the patient's medical records. Lab Data I reviewed the patient's lab results. 09/01/24 06:35 09/01/24 06:35 Radiology Impressions Chest X-Ray 09/01/24 06:28 IMPRESSION: No acute findings. Laboratory Results WBC 8.05 10^3/uL (3.29-11.43) 09/01/24 06:35 RBC 4.61 10^6/uL (3.85-5.65) 09/01/24 06:35 Hgb 14.50 g/dL (11.27-16.99) 09/01/24 06:35 Hct 42.8 % (36-47) 09/01/24 06:35 MCV 92.8 fl (85-98) 09/01/24 06:35 MCH 31.5 pg (27-33) 09/01/24 06:35 MCHC 33.9 g/dL (30-55) 09/01/24 06:35 RDW 13.5 % (12.1-15.1) 09/01/24 06:35 Plt Count 263 10^3/cmm (157-399) 09/01/24 06:35 MPV 9.6 fL (7.4-10.4) 09/01/24 06:35 Neut % (Auto) 56.1 % 09/01/24 06:35 Lymph % (Auto) 35.2 % 09/01/24 06:35 [place] % (Auto) 6.3 % 09/01/24 06:35 Eos % (Auto) 1.7 % 09/01/24 06:35 Baso % (Auto) 0.5 % 09/01/24 06:35 Neut # (Auto) 4.51 10^3/uL (1.8-7.7) 09/01/24 06:35 Lymph # (Auto) 2.8 10^3/uL (0.8-4.8) 09/01/24 06:35 [place] # (Auto) 0.5 10^3/uL (0.2-0.9) 09/01/24 06:35 Eos # (Auto) 0.1 10^3/uL (0.0-0.8) 09/01/24 06:35 Baso # (Auto) 0.0 10^3/uL (0.0-0.1) 09/01/24 06:35 Nucleated RBC % (auto) 0 % 09/01/24 06:35 Nucleated RBCs # 0.0 /100WBC 09/01/24 06:35 D-Dimer 0.57 ug/mLFEU (0-0.59) 09/01/24 06:35 Sodium 141 mmol/L (136-145) 09/01/24 06:35 Potassium 4.0 mmol/L (3.5-5.1) 09/01/24 06:35 Chloride 106 mmol/L (98-107) 09/01/24 06:35 Carbon Dioxide 21 mmol/L (22-29) L 09/01/24 06:35 Anion Gap 18.0 (5-19) 09/01/24 06:35 BUN 15 mg/dL (6-20) 09/01/24 06:35 Creatinine 0.6 mg/dL (0.5-0.9) 09/01/24 06:35 GFR Calculation 107.2 mL/min (90-130) 09/01/24 06:35 Glucose 140 mg/dL (65-115) H 09/01/24 06:35 Calculated Osmolality 295 mOsm/kg (285-295) 09/01/24 06:35 Calcium 9.1 mg/dL (8.5-10.5) 09/01/24 06:35 Magnesium 1.8 mg/dL (1.7-2.3) 09/01/24 06:35 Total Bilirubin 0.3 mg/dL (0.15-1.2) 09/01/24 06:35 AST 18 U/L (0-32) 09/01/24 06:35 ALT 19 U/L (0-33) 09/01/24 06:35 Alkaline Phosphatase 91 U/L (35-105) 09/01/24 06:35 Troponin T Baseline < 6 ng/L (0-10) 09/01/24 06:35 Troponin T 120 Minute 6.00 ng/L (0-10) 09/01/24 08:42 Delta Troponin T 0.69102 ABS# (0-10) 09/01/24 08:42 Total Protein 6.5 g/dL (6.6-8.7) L 09/01/24 06:35 Albumin 4.0 g/dL (3.5-5.2) 09/01/24 06:35 Globulin 2.5 g/dL (1.3-4.6) 09/01/24 06:35 TSH 1.83 uIU/mL (0.27-4.20) 09/01/24 06:35 All radiology interpretation(s) finalized by discharge Discharge Plan Discharge Patient Disposition: Placed in Observation Admit Provider: Duane Ruano Clinical Impression: Atypical chest pain, Atherosclerotic heart disease of [place] coronary artery with other forms of angina pectoris, CHF (congestive heart failure), NYHA class II Condition: Stable Coding Level of Care Code 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
--- NOTE | 2024-09-01 06:42 | ECG_ITS ---
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 Measurements Intervals [place] Rate: 87 P: 51 [place]: 146 QRS: 0 QRSD: 72 T: 28 QT: 348 QTc: 420 Interpretive Statements SINUS RHYTHM LOW QRS VOLTAGE IN PRECORDIAL LEADS [QRS DEFLECTION < 1.0 mV IN CHEST LEADS] ANTEROSEPTAL MYOCARDIAL INFARCTION , OF INDETERMINATE AGE [40+ ms Q WAVE IN V1-V4] Compared to ECG 12/21/2023 20:05:00 No significant changes Electronically Signed On 09-01-2024 21:15:21 LEAD AUDITOR by Baltazar Jackman M.D. [id number]
[2024-09-01 06:56] LABS: Basophils % 0.5 %; Eosinophils # 0.1 10^3/uL (0.0-0.8); Eosinophils % 1.7 %; Hematocrit 42.8 % (36-47); Lymphocytes # 2.8 10^3/uL (0.8-4.8); Lymphocytes % 35.2 %; Mean Corpuscular HGB Conc 33.9 g/dL (30-55); Mean Corpuscular Hemoglobin 31.5 pg (27-33); Mean Corpuscular Volume 92.8 fl (85-98); Mean Platelet Volume 9.6 fL (7.4-10.4); Monocytes # 0.5 10^3/uL (0.2-0.9); Monocytes % 6.3 %; Neutrophils # 4.51 10^3/uL (1.8-7.7); Neutrophils % 56.1 %; Nucleated Red Blood Cells % 0 %; Platelet Count 263 10^3/cmm (157-399); Red Blood Count 4.61 10^6/uL (3.85-5.65); Red Cell Distribution Width 13.5 % (12.1-15.1); White Blood Count 8.05 10^3/uL (3.29-11.43)
[2024-09-01] MEDS: aspirin 81 mg Chew Tablet 324 MG PO (06:56)
[2024-09-01 07:14] LABS: Alanine Aminotransferase 19 U/L (0-33); Alkaline Phosphatase 91 U/L (35-105); Aspartate Amino Transferase 18 U/L (0-32); Blood Urea Nitrogen 15 mg/dL (6-20); Calcium 9.1 mg/dL (8.5-10.5); Carbon Dioxide 21 mmol/L (22-29); Chloride 106 mmol/L (98-107); Globulin 2.5 g/dL (1.3-4.6); Glomerular Filtration Rate 107.2 mL/min (90-130); Glucose 140 mg/dL (65-115); Osmolality Calculated 295 mOsm/kg (285-295); Sodium 141 mmol/L (136-145); Total Bilirubin 0.3 mg/dL (0.15-1.2); Total Protein 6.5 g/dL (6.6-8.7)
[2024-09-01 07:15] LABS: Troponin(5th) Baseline < 6 ng/L (0-10)
--- NOTE | 2024-09-01 08:55 | ECG_ITS ---
[facility] Date: 2024-09-01 Pat Name: Natacha Romano Department: Room: Gender: Female Acid Correction Hand: : 1975 Requested By: William Echevarria Order Number: [id number] Niki MD: Baltazar Jackman M.D. Measurements Intervals [place] Rate: 75 P: 16 [place]: 131 QRS: 21 QRSD: 85 T: 13 QT: 384 QTc: 430 Interpretive Statements SINUS RHYTHM LOW QRS VOLTAGE IN PRECORDIAL LEADS [QRS DEFLECTION < 1.0 mV IN CHEST LEADS] ANTEROSEPTAL MYOCARDIAL INFARCTION , PROBABLY OLD [40+ ms Q WAVE IN V1-V4] Compared to ECG 09/01/2024 06:19:53 No significant changes Electronically Signed On 09-01-2024 21:22:42 LATHER APPRENTICE by Baltazar Jackman M.D. [id number]
[2024-09-01 09:13] LABS: Troponin 5 2HR Delta 0.00001 ABS# (0-10)
[2024-09-01] MEDS: nitroglycerin 1 gm/inch oint Pkt 0.5 INCH TOPICAL (10:11)
--- NOTE | 2024-09-01 10:32 | USCV_ITS ---
Natacha Romano Age: 48 Gender: F : 1975 Exam Date: 09/01/2024 10:53 Ordering Phys: Duane Ruano MD Technologist: USR Exam Location: [facility] [place] Indication: swelling PROCEDURES: Venous duplex imaging was performed in bilateral lower extremities. The following venous structures were evaluated: common femoral vein, profunda vein, proximal portion of the greater saphenous vein, superficial femoral vein, and the popliteal vein. In addition, the posterior tibial and peroneal trunk were evaluated. FINDINGS: No evidence of DVT seen in any vessel visualized at this time. Normal 2-D Doppler and augmentation and compressibility throughout the lower extremity venous structures. Additional imaging through the proximal calf veins also reveals no thrombus. Limited evaluation of the greater saphenous vein is patent with no thrombus. CONCLUSIONS No evidence of right lower extremity DVT. No evidence of left lower extremity DVT. Ashish Walker MD (Electronically Signed) Final Date: 01 September 2024 11:53 S
--- NOTE | 2024-09-01 10:33 | PM.HP ---
Providers/Chief Complaint Admitting Physician: Duane Ruano MD Primary Care Provider: Yulisa De La Cruz Chief Complaint: chest pain History of Present Illness Natacha Romano is a 48 year old female with history of coronary artery disease and previous LAD stenting in October 2022 with related ischemic cardiomyopathy with EF of 35 to 40% who presents to the emergency department with chest discomfort. She states she has been having discomfort in her substernal area, with some discomfort around her clavicle, and this morning some discomfort down into her left arm. Most of these episodes are extremely brief, seconds. She has had some shortness of breath lately, a trauma with a table falling on her prior to the start of these episodes and some right calf swelling 1-1/2 weeks ago or so. She saw her primary care provider after this and started her on doxycycline which she is completing soon. She denies any chronic reflux. She reports no fever. She reports that when the discomfort occurs it is very severe. She denies any discomfort right at this given moment, while I am evaluating her. No hemoptysis. Did have some right calf pain again yesterday. Has been more short of breath than usual, but this has been a gradual thing over several months. Note that when the discomfort occurs, she will feel dizzy. Review of Systems General: Reports: 10 or more systems reviewed and unremarkable except in HPI and below Card: Reports: chest pain Resp: Reports: dyspnea Medications/Allergies Home Medications Medication Instructions Recorded Confirmed Last Taken Type clopidogrel 75 mg tablet 75 mg PO DAILY #90 tabs 12/05/22 09/01/24 09/01/24 Rx simvastatin 40 mg tablet (Zocor) 40 mg PO QPM #90 tabs 10/31/23 09/01/24 09/01/24 Rx aspirin 81 mg tablet,delayed 81 mg PO DAILY #90 tabs 12/20/23 09/01/24 09/01/24 Rx release cetirizine 10 mg tablet 10 mg PO DAILY 12/21/23 09/01/24 09/01/24 History isosorbide mononitrate 30 mg 60 mg (2 x 30 mg) PO DAILY #30 tabs 12/24/23 09/01/24 09/01/24 Rx tablet,extended release 24 hr metoprolol succinate 25 mg 25 mg PO DAILY #30 tabs 12/24/23 09/01/24 09/01/24 Rx tablet,extended release 24 hr fluticasone 100 mcg-salmeterol 50 1 inh inhalation BID 06/03/24 09/01/24 Unknown History mcg/dose blistr powdr for inhalation ([employer] Inhub) potassium citrate 99 mg capsule 99 mg PO DAILY 06/03/24 09/01/24 09/01/24 History hydrocodone 5 mg-acetaminophen 325 1 tab PO Q6H PRN pain #14 tabs 06/09/24 09/01/24 Unknown Rx mg tablet doxycycline hyclate 100 mg capsule 100 mg PO BID 10 days #20 caps 08/26/24 09/01/24 09/01/24 Rx albuterol sulfate 90 mcg/actuation 2 puff inhalation Q4H PRN 09/01/24 09/01/24 Unknown History aerosol inhaler Shortness Of Breath Or Wheezing furosemide 20 mg tablet 20 mg PO QAM 09/01/24 09/01/24 09/01/24 History sacubitril 49 mg-valsartan 51 mg 1 tab PO BID 09/01/24 09/01/24 09/01/24 History tablet (Entresto) Allergies Allergy/AdvReac Type Severity Reaction Status Date / Time No Known Allergies Allergy Verified 09/01/24 06:25 PFSH Acute PFSH: Medical History (Updated 09/01/24 @ 10:43 by Duane Ruano MD) CHF (congestive heart failure), NYHA class II Coronary artery disease STEMI (ST elevation myocardial infarction) Surgical History Presence of stent in LAD coronary artery Social History Smoking and tobacco/nicotine status: current every day tobacco/nicotine user Vitals/I&O/Wt Last Vital Signs Temp 97.8 F 09/01/24 06:18 Pulse 97 09/01/24 10:11 Resp 14 09/01/24 10:00 BP 130/72 09/01/24 10:11 Pulse Ox 96 09/01/24 10:00 O2 Del Method Room Air 09/01/24 06:42 08/31/24 09/01/24 09/01/24 22:59 06:59 14:59 Intake Total 0 / 0 Balance 0 / 0 Weight last 48 hrs Weight 140.16 kg Physical Exam Narrative: General exam is a white female, no distress, denies pain currently HEENT: Atraumatic normocephalic. Oropharynx clear Neck is supple no lymphadenopathy thyromegaly Cardiovascular regular rate and rhythm, no murmur Lungs clear no wheezing or crackles Soft nontender positive bowel sounds. No obvious organomegaly exam is deferred Extremities no cyanosis clubbing or edema, perhaps some mild tenderness right lower extremity. Old bruising noted, nearly gone Skin no rash Neuro no obvious focal deficits Data 09/01/24 06:35 09/01/24 06:35 Other Labs: EKG demonstrates sinus rhythm, normal axis, previous anterior [place] with poor R wave progression, no acute changes Chest x-ray no acute infiltrate LFTs are normal Troponin less than 6 and 120-minute level 6 Albumin, calcium is normal I have ordered a TSH and magnesium Have ordered a venous duplex lower extremity I have ordered a D-dimer A&P Assessment and plan (1) Atypical chest pain: Patient with atypical chest pain Trend troponins Cardiology consult Note that she had an angiogram in November with no acute findings She has had some lower extremity discomfort. Will check venous duplex. Will check a D-dimer. Also, she has recently been on doxycycline which could cause distal esophagitis that could contribute to discomfort. Multiple different possible etiologies. Check TSH and magnesium level Telemetry Protonix IV every 12 hours. Stop doxycycline. (2) Coronary artery disease: Patient with underlying coronary disease Continue Plavix, aspirin Increase Lipitor Continue her Imdur, beta-travon Qualifiers: Coronary Disease-Associated Artery/Lesion type: [place] artery [place] vs. transplanted heart: [place] heart Associated angina: without angina Qualified Code(s): I25.10 - Atherosclerotic heart disease of [place] coronary artery without angina pectoris (3) CHF (congestive heart failure), NYHA class II: Patient with history of CHF Last echocardiogram in November demonstrated difficult visualization as contrast was not used and her anatomy. Will not order repeat at this time, defer to cardiology whether they would want a repeat echo. Certainly contrast would have to be used for any significant visualization. Qualifiers: Congestive heart failure type: systolic Congestive heart failure chronicity: acute on chronic Qualified Code(s): I50.23 - Acute on chronic systolic (congestive) heart failure Plan Other medical problems as outlined in past medical history Full code Lovenox for DVT prophylaxis Attestations Medical Necessity Statement*: Will need less than 2 midnight stay for evaluation and treatment of chest discomfort, atypical Diagnoses Atypical chest pain R07.89 Coronary artery disease involving [place] coronary artery of [place] heart without angina pectoris I25.10 Coronary Disease-Associated Artery/Lesion type: [place] artery [place] vs. transplanted heart: [place] heart Associated angina: without angina Acute on chronic systolic congestive heart failure, NYHA class 2 I50.23 Congestive heart failure type: systolic Congestive heart failure chronicity: acute on chronic Time Spent (min) 55
[2024-09-01 11:07] LABS: D Dimer 0.57 ug/mLFEU (0-0.59)
[2024-09-01 11:22] LABS: Magnesium 1.8 mg/dL (1.7-2.3); Thyroid Stimulating Hormone 1.83 uIU/mL (0.27-4.20)
[2024-09-01] MEDS: enoxaparin 40 mg/0.4 mL Syringe SUBCUT (11:26)
[2024-09-01] MEDS: pantoprazole 40 mg SDV IVP ×2 (11:26→21:47)
--- NOTE | 2024-09-01 12:23 | ECG_ITS ---
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 Measurements Intervals [place] Rate: 68 P: 14 [place]: 125 QRS: 12 QRSD: 90 T: 33 QT: 420 QTc: 448 Interpretive Statements SINUS RHYTHM LOW QRS VOLTAGE IN PRECORDIAL LEADS [QRS DEFLECTION < 1.0 mV IN CHEST LEADS] ANTEROSEPTAL MYOCARDIAL INFARCTION , PROBABLY OLD [40+ ms Q WAVE IN V1-V4] Compared to ECG 09/01/2024 08:55:38 No significant changes Electronically Signed On 09-01-2024 21:20:09 TUBE WRAPPER by Baltazar Jackman M.D. [id number]
[2024-09-01 13:57] LABS: Troponin 5 6HR Delta 0.00001 ng/L (0-12)
--- NOTE | 2024-09-01 15:54 | PC.NURSE ---
Patient transferred from ED to CSU via a bed at 1550.
--- NOTE | 2024-09-01 17:17 | P.CONIM_ITS ---
Providers/Reason For Consult 2 Consulting Physician/Specialty*: MORRO Olivo MD/cardiology Reason for Consult*: Patient with chest pain, history of myocardial infarction and previous PCI Requesting Physician: Dr. Ruano Attending Physician: Duane Ruano MD Primary Care Provider: Yulisa De La Cruz History of Present Illness History of Present Illness Natacha Romano is a 48 year old female with a history of atherosclerotic heart diseas, previous myocardial infarction and PCI, presented with complaints of neck pain and arm pain for the last week or so. Apparently this patient has been in her baseline state of health up until a week ago when she started having the pain on either side of the neck radiate to the left arm for the last 1 week. The pain also radiates to the right side of the neck. Usually lasts for a minute or 2 and then goes away by itself. No definite precipitating factors. Symptoms seems to be more in the nighttime. She may have these episodes 5 or 6 times a day. In view of the ongoing symptoms, she decided to come to the hospital. She has no other associated symptoms or radiation of pain. She had a myocardial infarction in October 2022. At that time, she underwent PCI of the proximal LAD. She had an uneventful postprocedure course. She apparently had some episodes of heart failure. LV ejection fraction was around 35% following the myocardial infarction in October 2022. Based on the echocardiogram in November 2023, the ejection fraction has improved to around 50%. But the study was of suboptimal quality. She underwent a repeat cardiac catheterization for recurrence of chest pain in November of last year. She was found to have patent stented area of the LAD. No new lesions were identified. Patient continues to smoke at least a pack a day which she has been doing for the last almost 30 years. No alcohol abuse or any other substance abuse. Review of Systems 2 Narrative: CONSTITUTIONAL: No fever or chills. EYES: No blurring of vision or other visual disturbances lately. ENT: No hoarseness of voice, auditory disturbances or sore throat. CARDIOVASCULAR: As mentioned above. RESPIRATORY: No significant cough. GASTROINTESTINAL: No hematemesis or melena. GENITOURINARY: No dysuria or hematuria. INTEGUMENTARY: No skin rashes or history of skin cancer. NEURO: No transient ischemic attacks or amaurosis. PSYCHIATRIC: No history of psychosis or major depression. HEMATOLOGIC: No bleeding disorders or significant anemia. ENDOCRINE: No history of polyuria or polydipsia. MUSCULOSKELETAL: No recent joint pain or swelling. ALLERGY/IMMUNOLOGY: As mentioned above. Medications/Allergies Home Medications Medication Instructions Recorded Confirmed Last Taken Type clopidogrel 75 mg tablet 75 mg PO DAILY #90 tabs 12/05/22 09/01/24 09/01/24 Rx simvastatin 40 mg tablet (Zocor) 40 mg PO QPM #90 tabs 10/31/23 09/01/24 09/01/24 Rx aspirin 81 mg tablet,delayed 81 mg PO DAILY #90 tabs 12/20/23 09/01/24 09/01/24 Rx release cetirizine 10 mg tablet 10 mg PO DAILY 12/21/23 09/01/24 09/01/24 History isosorbide mononitrate 30 mg 60 mg (2 x 30 mg) PO DAILY #30 tabs 12/24/23 09/01/24 09/01/24 Rx tablet,extended release 24 hr metoprolol succinate 25 mg 25 mg PO DAILY #30 tabs 12/24/23 09/01/24 09/01/24 Rx tablet,extended release 24 hr fluticasone 100 mcg-salmeterol 50 1 inh inhalation BID 06/03/24 09/01/24 Unknown History mcg/dose blistr powdr for inhalation (Chloé Tomas) potassium citrate 99 mg capsule 99 mg PO DAILY 06/03/24 09/01/24 09/01/24 History hydrocodone 5 mg-acetaminophen 325 1 tab PO Q6H PRN pain #14 tabs 06/09/24 09/01/24 Unknown Rx mg tablet doxycycline hyclate 100 mg capsule 100 mg PO BID 10 days #20 caps 08/26/24 09/01/24 09/01/24 Rx albuterol sulfate 90 mcg/actuation 2 puff inhalation Q4H PRN 09/01/24 09/01/24 Unknown History aerosol inhaler Shortness Of Breath Or Wheezing furosemide 20 mg tablet 20 mg PO QAM 09/01/24 09/01/24 09/01/24 History sacubitril 49 mg-valsartan 51 mg 1 tab PO BID 09/01/24 09/01/24 09/01/24 History tablet (Entresto) Allergies Allergy/AdvReac Type Severity Reaction Status Date / Time milk Allergy Severe ALGY-Difficulty Verified 09/01/24 17:29 Breathing Current Medications Generic Name Dose Route Start Last Admin Trade Name Freq PRN Reason Stop Dose Admin Enoxaparin Sodium 40 mg 09/01/24 11:00 09/01/24 11:26 Enoxaparin 40 Mg/0.4 Ml Syringe SUBCUT 40 mg Q24H SUNIL Administration Pantoprazole Sodium 40 mg 09/01/24 10:45 09/01/24 11:26 Pantoprazole 40 Mg Sdv IVP 40 mg Q12H SUNIL Administration PFSH Acute 2 PFSH: Medical History CHF (congestive heart failure), NYHA class II Coronary artery disease STEMI (ST elevation myocardial infarction) Surgical History Presence of stent in LAD coronary artery Social History Smoking and tobacco/nicotine status: current every day tobacco/nicotine user Vitals/I&O/Wt Last Vital Signs Temp 97.8 F 09/01/24 06:18 Pulse 67 09/01/24 16:00 Resp 19 H 09/01/24 16:00 BP 122/73 09/01/24 16:00 Pulse Ox 94 09/01/24 16:00 O2 Del Method Room Air 09/01/24 16:13 09/01/24 09/01/24 09/01/24 06:59 14:59 22:59 Intake Total 0 / 0 Balance 0 / 0 Weight last 48 hrs Weight 306 lb Weight 309 lb Physical Exam 2 Narrative: GENERAL: The patient is alert and oriented times three. Not in any acute distress. Obese HEENT: No significant pallor, icterus or lymphadenopathy.Oral cavity: There are no mucous membrane lesions. NECK: Trachea appears to be central. No masses noted. No JVD or thyromegaly appreciated. RESPIRATORY: Chest is symmetrical. No intercostals muscle retraction or any accessory muscle activation. There is no chest wall tenderness. Breath sounds are heard bilaterally. No rales or rhonchi heard. No evidence of any consolidation. BREASTS: Deferred. HEART: The heart sounds are normal. No S3 or S4. No significant murmurs. No pericardial rub ABDOMEN: No vessel pulsations or distention. No tenderness. No organomegaly appreciated. Bowel sounds are normally heard. : Deferred. RECTAL: Deferred. LYMPHATIC: No lymphadenopathy noted in the neck. EXTREMITIES: No edema or cyanosis. No clubbing. MUSCULOSKELETAL: No acute joint deformities or swelling SKIN: There are no significant rashes or ecchymosis NEUROPSYCHIATRIC: The patient is alert and oriented x3. Appears to be in a good mood. No tremors or rigidity noted. Data 09/01/24 06:35 09/01/24 06:35 Other Labs: Laboratory Last Values WBC 8.05 10^3/uL (3.29-11.43) 09/01/24 06:35 RBC 4.61 10^6/uL (3.85-5.65) 09/01/24 06:35 Hgb 14.50 g/dL (11.27-16.99) 09/01/24 06:35 Hct 42.8 % (36-47) 09/01/24 06:35 MCV 92.8 fl (85-98) 09/01/24 06:35 MCH 31.5 pg (27-33) 09/01/24 06:35 MCHC 33.9 g/dL (30-55) 09/01/24 06:35 RDW 13.5 % (12.1-15.1) 09/01/24 06:35 Plt Count 263 10^3/cmm (157-399) 09/01/24 06:35 MPV 9.6 fL (7.4-10.4) 09/01/24 06:35 Neut % (Auto) 56.1 % 09/01/24 06:35 Lymph % (Auto) 35.2 % 09/01/24 06:35 [place] % (Auto) 6.3 % 09/01/24 06:35 Eos % (Auto) 1.7 % 09/01/24 06:35 Baso % (Auto) 0.5 % 09/01/24 06:35 Neut # (Auto) 4.51 10^3/uL (1.8-7.7) 09/01/24 06:35 Lymph # (Auto) 2.8 10^3/uL (0.8-4.8) 09/01/24 06:35 [place] # (Auto) 0.5 10^3/uL (0.2-0.9) 09/01/24 06:35 Eos # (Auto) 0.1 10^3/uL (0.0-0.8) 09/01/24 06:35 Baso # (Auto) 0.0 10^3/uL (0.0-0.1) 09/01/24 06:35 Nucleated RBC % (auto) 0 % 09/01/24 06:35 Nucleated RBCs # 0.0 /100WBC 09/01/24 06:35 D-Dimer 0.57 ug/mLFEU (0-0.59) 09/01/24 06:35 Sodium 141 mmol/L (136-145) 09/01/24 06:35 Potassium 4.0 mmol/L (3.5-5.1) 09/01/24 06:35 Chloride 106 mmol/L (98-107) 09/01/24 06:35 Carbon Dioxide 21 mmol/L (22-29) L 09/01/24 06:35 Anion Gap 18.0 (5-19) 09/01/24 06:35 BUN 15 mg/dL (6-20) 09/01/24 06:35 Creatinine 0.6 mg/dL (0.5-0.9) 09/01/24 06:35 GFR Calculation 107.2 mL/min (90-130) 09/01/24 06:35 Glucose 140 mg/dL (65-115) H 09/01/24 06:35 Calculated Osmolality 295 mOsm/kg (285-295) 09/01/24 06:35 Calcium 9.1 mg/dL (8.5-10.5) 09/01/24 06:35 Magnesium 1.8 mg/dL (1.7-2.3) 09/01/24 06:35 Total Bilirubin 0.3 mg/dL (0.15-1.2) 09/01/24 06:35 AST 18 U/L (0-32) 09/01/24 06:35 ALT 19 U/L (0-33) 09/01/24 06:35 Alkaline Phosphatase 91 U/L (35-105) 09/01/24 06:35 Troponin T Baseline < 6 ng/L (0-10) 09/01/24 06:35 Troponin T 120 Minute 6.00 ng/L (0-10) 09/01/24 08:42 Delta Troponin T 0.63684 ABS# (0-10) 09/01/24 08:42 Troponin T Hi Sens 6Hr 6.00 ng/L (0-10) 09/01/24 13:25 Troponin T Hi Sens 6Hr Delta 0.01347 ng/L (0-12) 09/01/24 13:25 Total Protein 6.5 g/dL (6.6-8.7) L 09/01/24 06:35 Albumin 4.0 g/dL (3.5-5.2) 09/01/24 06:35 Globulin 2.5 g/dL (1.3-4.6) 09/01/24 06:35 TSH 1.83 uIU/mL (0.27-4.20) 09/01/24 06:35 Other data: The EKG showed normal sinus rhythm with poor R wave progression. Features of old anterior [place]. Low voltage complexes in the precordial leads. Echocardiogram in January 2024 The examination is uninterpretable without echo contrast. With echo contrast the apical 2 chamber view is barely visible. The overall ejection fraction is probably close to normal. Wall motion disturbances cannot be determined. No Doppler M-mode is available. No diastolic function analysis is performed. Previous study was done in January of last year. It was an equally poor study. There is probably not much change. Cardiac catheterization in November 2023 * INDICATION: Worsening angina/abnormal stress test. * No significant disease noted in the Left Main, Left Anterior Descending, Right, or Circumflex coronary arteries. Patent proximal LAD prior stent. Diagonal artery coming off of proximal LAD, has minimal ostial pinching from prior stent. * Coronary angiography shows right dominance. A&P Assessment and plan (1) Atherosclerotic heart disease of [place] coronary artery with other forms of angina pectoris: This patient had a PCI of the proximal LAD in October 2022. Repeat angiogram in November 2023 revealed patent stented segment there is some minimal ostial narrowing of the diagonal coming off the stented area. No significant disease was noted in the circumflex or the right coronary artery. Her EKG is unremarkable. The chest pain is very atypical. Most likely related to some form of cardiac arrhythmia. Patient was complaining of some pain with the PVCs on the monitor during my interview (2) Premature ventricular contractions: It is possible that the patient may have symptomatic ventricular arrhythmia. I may start her on Magtab SR 84 mg 2 tablets p.o. daily. Since the nitroglycerin is helping her symptoms, I may start her on a small dose of long-acting nitrate as well. Based on the clinical progress, further recommendations will be made. (3) Heart failure with improved ejection fraction (HFimpEF): The LV ejection fraction appeared to be borderline low with the previous echocardiogram. Apparently this is a suboptimal quality. We may do a repeat echocardiogram to reevaluate the LV ejection fraction. (4) Dyslipidemia: May continue on the current treatment. (5) History of smoking 25-50 pack years: Patient strongly advised to quit smoking. Cardiovascular medications were discussed. (6) Aberrant right subclavian artery: Asymptomatic. Continue on the current management (7) Benign hypertension: The blood pressure is in the normal range at this point. Will continue on the current medications. Plan Based on the clinical progress on the results of the above, further recommendations will be made. Thank you for the opportunity to eval this patient and make these recommendations. Consult Attestations 2 Medical Necessity Statement: Patient requires continued hospital stay for close monitoring and further management Coding Level of Care Code 41897 Diagnoses Atherosclerotic heart disease of [place] coronary artery with other forms of angina pectoris I25.118 Premature ventricular contractions I49.3 Heart failure with improved ejection fraction (HFimpEF) I50.32 Dyslipidemia E78.5 History of smoking 25-50 pack years Z87.891 Aberrant right subclavian artery Q27.8 Benign hypertension I10
[2024-09-01] MEDS: sacubitril/valsartan 24-26 mg Tablet 2 EACH PO (17:20)
--- NOTE | 2024-09-01 17:53 | USCV_ITS ---
Natacha Romano Age: 48 Gender: F : 1975 Exam Date: 09/01/2024 21:02 Ordering Phys: Iban Olivo MD ([email or web address]) Technologist: TAHIR Exam Location: [facility] [place] Indication: chest pain, ventricular arrhythmia, history of CAD s/p stents for STEMI October 2022 BP: 110 / 78 HR: 67 Rhythm: Sinus Technical Quality: Adequate MEASUREMENTS (Male / Female) Normal Values 2D ECHO LV Diastolic Diameter PLAX 5.2 cm 4.2 - 5.9 / 3.9 - 5.3 cm IVS Diastolic Thickness 0.9 cm 0.6 - 1.0 / 0.6 - 0.9 cm IVS Systolic Thickness 1.3 cm LVPW Diastolic Thickness 1.3 cm 0.6 - 1.0 / 0.6 - 0.9 cm LVPW Systolic Thickness 1.5 cm LVOT Diameter 2.1 cm LV Ejection Fraction 2D Teich 48.4 % LV Ejection Fraction MOD 4C 42.0 % LV Ejection Fraction MOD 2C 46.7 % LV Ejection Fraction 2C AL 46.6 % LA Diameter 4.2 cm Aorta at Sinotubular Diameter 2.8 cm IVC Diameter 0.9 cm M-MODE LA Ao Ratio MM 1.5 AV Cusp Separation MM 1.7 cm DOPPLER AV Peak Velocity 127.0 cm/s LVOT Peak Velocity 80.0 cm/s AV Area Cont Eq vti 2.7 cm squared AV Area Cont Eq pk 2.3 cm squared MV Peak Velocity 103.0 cm/s MV Area PHT 4.0 cm squared Mitral E to A Ratio 1.5 TV Peak E Velocity 38.0 cm/s PV Peak Velocity 85.0 cm/s FINDINGS Left Ventricle Moderate hypokinesia of the mid and apical septum and the anteroseptal segments. LV ejection fraction around 48% Right Ventricle Normal right ventricular size and systolic function. Right Atrium Possibly of normal size Left Atrium Mildly increased left atrial size. Mitral Valve No gross abnormalities noted Aortic Valve No gross abnormalities noted Tricuspid Valve No gross abnormalities noted Pulmonic Valve Pulmonic valve not well visualized. Pericardium No pericardial effusion. Aorta Normal aortic annulus size. IVC Inferior vena cava not visualized. CONCLUSIONS Moderate hypokinesia of the mid and apical septum and the anteroseptal segments. LV ejection fraction around 48%. Mildly increased left atrial size. No gross morphologic abnormalities of the valves. There is no pericardial effusion. Comparison with the previous study is difficult because of the difference in the technical quality. Possibly no significant change Dr Iban Olivo MD [facility] (Electronically Signed) Final Date: 02 September 2024 08:31 S
[2024-09-01] MEDS: atorvastatin 40 mg Tablet 80 MG PO (21:47)
[2024-09-02] VITALS (7 sets, daily range): BP systolic 102–134; BP diastolic 67–97; PULSE 59–86; RESP 14–28; TEMP 36.5–36.7; O2SAT 92–99
[2024-09-02 03:56] LABS: Basophils # 0.1 10^3/uL (0.0-0.1); Basophils % 0.6 %; Eosinophils # 0.2 10^3/uL (0.0-0.8); Eosinophils % 1.7 %; Hematocrit 41.3 % (36-47); Lymphocytes # 3.2 10^3/uL (0.8-4.8); Lymphocytes % 36.5 %; Mean Corpuscular HGB Conc 33.9 g/dL (30-55); Mean Corpuscular Hemoglobin 32.3 pg (27-33); Mean Corpuscular Volume 95.4 fl (85-98); Mean Platelet Volume 9.7 fL (7.4-10.4); Monocytes # 0.6 10^3/uL (0.2-0.9); Monocytes % 7.2 %; Neutrophils # 4.62 10^3/uL (1.8-7.7); Neutrophils % 53.7 %; Nucleated Red Blood Cells % 0 %; Platelet Count 249 10^3/cmm (157-399); Red Blood Count 4.33 10^6/uL (3.85-5.65); Red Cell Distribution Width 13.6 % (12.1-15.1); White Blood Count 8.62 10^3/uL (3.29-11.43)
[2024-09-02 04:28] LABS: Alanine Aminotransferase 19 U/L (0-33); Albumin Level 3.7 g/dL (3.5-5.2); Alkaline Phosphatase 86 U/L (35-105); Aspartate Amino Transferase 18 U/L (0-32); Blood Urea Nitrogen 15 mg/dL (6-20); Carbon Dioxide 23 mmol/L (22-29); Chloride 105 mmol/L (98-107); Creatinine Clr Calc Pharmacy 145.0498; Globulin 2.4 g/dL (1.3-4.6); Glomerular Filtration Rate 89.7 mL/min (90-130); Glucose 129 mg/dL (65-115); Osmolality Calculated 295 mOsm/kg (285-295); Sodium 141 mmol/L (136-145); Total Bilirubin 0.4 mg/dL (0.15-1.2); Total Protein 6.1 g/dL (6.6-8.7)
[2024-09-02] MEDS: FUROsemide 20 mg Tablet PO (05:14)
[2024-09-02] MEDS: aspirin 81 mg EC Tablet PO (08:19)
[2024-09-02] MEDS: metoprolol succinate ER (24 HR) 25 mg Tablet PO ×2 (08:19→10:17)
[2024-09-02] MEDS: magnesium lactate 84 mg Tablet PO (08:19)
[2024-09-02] MEDS: clopidogrel 75 mg Tablet PO (08:19)
[2024-09-02] MEDS: cetirizine 10 mg Tablet PO (08:20)
[2024-09-02] MEDS: isosorbide mononitrate ER 30 mg Tablet 60 MG PO (08:20)
[2024-09-02] MEDS: sacubitril/valsartan 24-26 mg Tablet 2 EACH PO (08:20)
[2024-09-02] MEDS: budesonide 0.5 mg/2 mL Neb INHALATION (08:23)
--- NOTE | 2024-09-02 09:31 | PC.CHAP ---
Pastoral Care Encounter/Spiritual Assessment Type of Contact [] Declined network contract manager visit [] Patient/Family/Request visit [] Outpatient visit [] Follow-up visit [] Physician referral [] Code/Alert [x] Routine visit [] Staff referral [] Actively dying [] Patient sleeping [] Family support [] [] Out of room [] Palliative care [] [] Receiving care in room [] Pre-surgical visit [] Trauma [] Long length of stay [] ICU visit [] Other: Relational/Emotional Strength [x] Patient feels connected with others/family/visitors/staff [] Distress [] Loneliness/isolation [] Abandonment Spirituality of Patient [x] Person of [place] [] Attends Hoahaoism of their [place] [x] Believes in Prayer [] Reads Bible or Synagogue materials [] There are Spiritual issues to be addressed [employer] Developer Interventions [x] Prayer [x] Active listening [] Non-anxious presence [x] Spiritual/emotional support [] Crisis/trauma care [] Spiritual counseling [] Bereavement support [] Provided bereavement packet [] Provided Bible/devotional materials [] Provided toy/stuffed animal, coloring book to patient or family member [] Provided Communion [] Anointing/Walker [] Salvation [x] Completed spiritual assessment [] Other: Impact on Illness or Injury [] Angry [] Fearful [] Anxious [] Often cries [] Exhaustion [] Unable to work [] Unable to attend samaritan [] Unable to walk/stand [] Unable to read [] Unable to drive [] Unable to eat/drink [] Unable to sleep [] Unable to be with family [] Patient intubated [] Other: Summary Time spent with patient 5 min
--- NOTE | 2024-09-02 09:51 | PM.PN ---
Subjective Subjective: The patient has been having episodes of pain with the PVCs. Echocardiogram revealed normal LV size with a slightly diminished ejection fraction of 48%. The ejection fraction has not changed from the previous echocardiogram. Vital signs seems to be stable. Medications: Medication Review Details: Current Medications Acetaminophen (Acetaminophen 325 Mg Tablet) 650 mg PO Q6H PRN PRN Reason: Mild/Mod Pain Or Temp >/= 101 Albuterol/Ipratropium (Ipratropium-Albuterol 3 Ml Neb) 3 ml INHALATION Q6H PRN PRN Reason: SHORTNESS OF BREATH Aspirin (Aspirin 81 Mg Ec Tablet) 81 mg PO DAILY [facility] Last Admin: 09/02/24 08:19 Dose: 81 mg Atorvastatin Calcium (Atorvastatin 40 Mg Tablet) 80 mg PO BEDTIME [facility] Last Admin: 09/01/24 21:47 Dose: 80 mg Budesonide (Budesonide 0.5 Mg/2 Ml Neb) 0.5 mg INHALATION BID.RESPIRATORY [facility] Last Admin: 09/02/24 08:23 Dose: 0.5 mg Cetirizine HCl (Cetirizine 10 Mg Tablet) 10 mg PO DAILY [facility] Last Admin: 09/02/24 08:20 Dose: 10 mg Clopidogrel Bisulfate (Clopidogrel 75 Mg Tablet) 75 mg PO DAILY [facility] Last Admin: 09/02/24 08:19 Dose: 75 mg Cyclobenzaprine HCl (Cyclobenzaprine 10 Mg Tablet) 10 mg PO TID PRN PRN Reason: MUSCLE SPASMS Enoxaparin Sodium (Enoxaparin 40 Mg/0.4 Ml Syringe) 40 mg SUBCUT Q24H SUNIL Last Admin: 09/01/24 11:26 Dose: 40 mg Furosemide (Furosemide 20 Mg Tablet) 20 mg PO QAM SUNIL Last Admin: 09/02/24 05:14 Dose: 20 mg Isosorbide Mononitrate (Isosorbide Mononitrate Er 30 Mg Tablet) 60 mg PO DAILY SUNIL Last Admin: 09/02/24 08:20 Dose: 60 mg Magnesium Lactate (Magnesium Lactate 84 Mg Tablet) 84 mg PO BID [facility] Last Admin: 09/02/24 08:19 Dose: 84 mg Metoprolol Succinate (Metoprolol Succinate Er (24 Hr) 25 Mg Tablet) 25 mg PO DAILY SUNIL Last Admin: 09/02/24 08:19 Dose: 25 mg Ondansetron HCl (Ondansetron 2 Mg/Ml Sdv 2 Ml) 4 mg IVP Q6H PRN PRN Reason: vomiting, or N/V if npo Oxycodone HCl (Oxycodone 5 Mg Ir Tab/Cap) 5 mg PO Q6H PRN PRN Reason: SEVERE PAIN Pantoprazole Sodium (Pantoprazole 40 Mg Sdv) 40 mg IVP Q12H [facility] Last Admin: 09/01/24 21:47 Dose: 40 mg Sacubitril/Valsartan (Sacubitril/Valsartan 24-26 Mg Tablet) 2 each PO BID [facility] Last Admin: 09/02/24 08:20 Dose: 2 each Vitals/I&O/Wt Last Vital Signs Temp 98.0 F 09/02/24 08:00 Pulse 83 09/02/24 08:24 Resp 16 09/02/24 08:24 BP 134/97 09/02/24 08:00 Pulse Ox 96 09/02/24 08:24 O2 Del Method Room Air 09/02/24 08:24 09/01/24 09/02/24 09/02/24 22:59 06:59 14:59 Intake Total 480 / 480 240 / 240 Balance 480 / 480 240 / 240 Weight last 48 hrs Weight 310 lb 1.6 oz Weight 306 lb Weight 309 lb Physical Exam Narrative: GENERAL: The patient is alert and oriented times three. Not in any acute distress. Obese HEENT: No significant pallor, icterus or lymphadenopathy.Oral cavity: There are no mucous membrane lesions. NECK: Trachea appears to be central. No masses noted. No JVD or thyromegaly appreciated. RESPIRATORY: Chest is symmetrical. No intercostals muscle retraction or any accessory muscle activation. There is no chest wall tenderness. Breath sounds are heard bilaterally. No rales or rhonchi heard. No evidence of any consolidation. BREASTS: Deferred. HEART: The heart sounds are normal. No S3 or S4. No significant murmurs. No pericardial rub ABDOMEN: No vessel pulsations or distention. No tenderness. No organomegaly appreciated. Bowel sounds are normally heard. : Deferred. RECTAL: Deferred. LYMPHATIC: No lymphadenopathy noted in the neck. EXTREMITIES: No edema or cyanosis. No clubbing. MUSCULOSKELETAL: No acute joint deformities or swelling SKIN: There are no significant rashes or ecchymosis NEUROPSYCHIATRIC: The patient is alert and oriented x3. Appears to be in a good mood. No tremors or rigidity noted. Data 09/02/24 03:14 09/02/24 03:14 A&P Assessment and plan (1) Atherosclerotic heart disease of [place] coronary artery with other forms of angina pectoris: This patient had a PCI of the proximal LAD in October 2022. Repeat angiogram in November 2023 revealed patent stented segment there is some minimal ostial narrowing of the diagonal coming off the stented area. No significant disease was noted in the circumflex or the right coronary artery. Her EKG is unremarkable. The chest pain is very atypical. Most likely related to some form of cardiac arrhythmia. Patient was complaining of some pain with the PVCs on the monitor during my interview Patient still has a PVCs. I may go up on the dose of the metoprolol to 50 mg p.o. daily. Continue the Magtab SR. (2) Premature ventricular contractions: As mentioned above. (3) Heart failure with improved ejection fraction (HFimpEF): The LV ejection fraction appeared to be borderline low with the previous echocardiogram. Apparently this is a suboptimal quality. We may do a repeat echocardiogram to reevaluate the LV ejection fraction. (4) Dyslipidemia: May continue on the current treatment. (5) History of smoking 25-50 pack years: Patient strongly advised to quit smoking. Cardiovascular medications were discussed. Patient seems to be interested in quitting. Options were discussed. I will discussed with the primary attending. (6) Aberrant right subclavian artery: Asymptomatic. Continue on the current management (7) Benign hypertension: The blood pressure is in the normal range at this point. Will continue on the current medications. Plan If the patient continues to remain stable, may be discharged home this evening. At this point, if she will require any further cardiac workup. She also may go back to work on , if she is feeling okay Attestations Medical Necessity Statement*: Disposition as per the primary Coding Level of Care Code 41101 Diagnoses Atherosclerotic heart disease of [place] coronary artery with other forms of angina pectoris I25.118 Premature ventricular contractions I49.3 Heart failure with improved ejection fraction (HFimpEF) I50.32 Dyslipidemia E78.5 History of smoking 25-50 pack years Z87.891 Aberrant right subclavian artery Q27.8 Benign hypertension I10
--- NOTE | 2024-09-02 09:55 | PC.NURSE ---
Dr. Olivo called to verify that he ordered metoprolol 50mg daily. Patient has already had 25mg this morning, provider ordered to give her an additional 25mg this morning. Order in OCT is changed for metoprolol succinate 25mg once and then 50mg daily.
--- NOTE | 2024-09-02 09:58 | PM.DCS ---
Discharge Providers Date of Admission: 09/01/24 10:26 Date of Discharge: September 02, 2024 Attending Provider at Admission: Duane Ruano MD Attending Provider at Discharge: Duane Ruano MD Primary Care Provider: Yulisa De La Cruz Diagnoses at Discharge Discharge Diagnosis (1) Atherosclerotic heart disease of [place] coronary artery with other forms of angina pectoris: Status: Acute (2) Premature ventricular contractions: Status: Acute (3) Heart failure with improved ejection fraction (HFimpEF): Status: Acute (4) Dyslipidemia: Status: Acute (5) History of smoking 25-50 pack years: Status: Acute (6) Aberrant right subclavian artery: Status: Acute (7) Benign hypertension: Status: Acute Reason for Visit Reason for Visit: chest pain Hospital Course Hospital Course Natacha is a 48-year-old white female with known coronary disease who presents with atypical chest pain, lasting seconds, to the emergency department. Dimer was tested and negative. Venous duplex no evidence of DVT. Cardiac enzymes negative. EKG nondiagnostic. Cardiology was consulted who performed a limited echo, and thought EF was likely unchanged, at 48%. PVCs, correlated with the patient's sense of discomfort. Metoprolol was increased, magnesium added. TSH checked and normal. On September 02, patient was doing somewhat better and it was thought she could transition home with close follow-up with cardiology and her primary care provider. She was able to ask questions, and agreed with the plan. No life-threatening rhythm abnormalities were noted overnight. Encouraged not to smoke, drink, and to reduce caffeine. Physical Exam Narrative: General Exam no distress Neck is supple Cardiovascular regular rate and rhythm Lungs clear Abdomen is soft Extremities no cyanosis clubbing or edema Discharge Data Studies Completed and Pending Completed Studies During Hospitalization Category Date Time Status XR chest 1V portable [id number] Stat Exams 09/01/24 06:28 [place] [id number] Routine Ultrasound 09/01/24 10:32 Completed CV. echo limited [id number] Routine Ultrasound 09/01/24 17:53 Completed Radiology Impressions Chest X-Ray 09/01/24 06:28 IMPRESSION: No acute findings. Laboratory Results WBC 8.62 10^3/uL (3.29-11.43) 09/02/24 03:14 RBC 4.33 10^6/uL (3.85-5.65) 09/02/24 03:14 Hgb 14.00 g/dL (11.27-16.99) 09/02/24 03:14 Hct 41.3 % (36-47) 09/02/24 03:14 MCV 95.4 fl (85-98) 09/02/24 03:14 MCH 32.3 pg (27-33) 09/02/24 03:14 MCHC 33.9 g/dL (30-55) 09/02/24 03:14 RDW 13.6 % (12.1-15.1) 09/02/24 03:14 Plt Count 249 10^3/cmm (157-399) 09/02/24 03:14 MPV 9.7 fL (7.4-10.4) 09/02/24 03:14 Neut % (Auto) 53.7 % 09/02/24 03:14 Lymph % (Auto) 36.5 % 09/02/24 03:14 [place] % (Auto) 7.2 % 09/02/24 03:14 Eos % (Auto) 1.7 % 09/02/24 03:14 Baso % (Auto) 0.6 % 09/02/24 03:14 Neut # (Auto) 4.62 10^3/uL (1.8-7.7) 09/02/24 03:14 Lymph # (Auto) 3.2 10^3/uL (0.8-4.8) 09/02/24 03:14 [place] # (Auto) 0.6 10^3/uL (0.2-0.9) 09/02/24 03:14 Eos # (Auto) 0.2 10^3/uL (0.0-0.8) 09/02/24 03:14 Baso # (Auto) 0.1 10^3/uL (0.0-0.1) 09/02/24 03:14 Nucleated RBC % (auto) 0 % 09/02/24 03:14 Nucleated RBCs # 0.0 /100WBC 09/02/24 03:14 D-Dimer 0.57 ug/mLFEU (0-0.59) 09/01/24 06:35 Sodium 141 mmol/L (136-145) 09/02/24 03:14 Potassium 4.0 mmol/L (3.5-5.1) 09/02/24 03:14 Chloride 105 mmol/L (98-107) 09/02/24 03:14 Carbon Dioxide 23 mmol/L (22-29) 09/02/24 03:14 Anion Gap 17.0 (5-19) 09/02/24 03:14 BUN 15 mg/dL (6-20) 09/02/24 03:14 Creatinine 0.7 mg/dL (0.5-0.9) 09/02/24 03:14 GFR Calculation 89.7 mL/min (90-130) L 09/02/24 03:14 Glucose 129 mg/dL (65-115) H 09/02/24 03:14 Calculated Osmolality 295 mOsm/kg (285-295) 09/02/24 03:14 Calcium 9.0 mg/dL (8.5-10.5) 09/02/24 03:14 Magnesium 1.8 mg/dL (1.7-2.3) 09/01/24 06:35 Total Bilirubin 0.4 mg/dL (0.15-1.2) 09/02/24 03:14 AST 18 U/L (0-32) 09/02/24 03:14 ALT 19 U/L (0-33) 09/02/24 03:14 Alkaline Phosphatase 86 U/L (35-105) 09/02/24 03:14 Troponin T Baseline < 6 ng/L (0-10) 09/01/24 06:35 Troponin T 120 Minute 6.00 ng/L (0-10) 09/01/24 08:42 Delta Troponin T 0.53466 ABS# (0-10) 09/01/24 08:42 Troponin T Hi Sens 6Hr 6.00 ng/L (0-10) 09/01/24 13:25 Troponin T Hi Sens 6Hr Delta 0.84590 ng/L (0-12) 09/01/24 13:25 Total Protein 6.1 g/dL (6.6-8.7) L 09/02/24 03:14 Albumin 3.7 g/dL (3.5-5.2) 09/02/24 03:14 Globulin 2.4 g/dL (1.3-4.6) 09/02/24 03:14 TSH 1.83 uIU/mL (0.27-4.20) 09/01/24 06:35 Vitals Last Vital Signs Temp 98.0 F 09/02/24 08:00 Pulse 83 09/02/24 08:24 Resp 16 09/02/24 08:24 BP 134/97 09/02/24 08:00 Pulse Ox 96 09/02/24 08:24 O2 Del Method Room Air 09/02/24 08:24 Discharge Plan Discharge Patient Disposition: Home Condition: Stable Prescriptions: New magnesium L-lactate [Magtab] 84 mg Tablet Extended Release 84 mg PO BID Qty: 60 0RF metoprolol succinate 50 mg Tablet Extended Release 24 Hr 50 mg PO DAILY Qty: 30 0RF pantoprazole [Protonix] 40 mg tablet,delayed release (DR/EC) 40 mg PO DAILY Qty: 30 0RF Continued potassium citrate 99 mg capsule 99 mg PO DAILY fluticasone propion-salmeterol [Wixela Inhub] 100-50 mcg/dose blister with device 1 inh inhalation BID clopidogrel 75 mg tablet 75 mg PO DAILY Qty: 90 3RF Zocor 40 mg tablet 40 mg PO QPM Qty: 90 3RF aspirin 81 mg tablet,delayed release (DR/EC) 81 mg PO DAILY Qty: 90 3RF cetirizine 10 mg tablet 10 mg PO DAILY isosorbide mononitrate 30 mg tablet extended release 24 hr 60 mg PO DAILY Qty: 30 1RF hydrocodone-acetaminophen 5-325 mg tablet 1 tab PO Q6H PRN (Reason: pain) Qty: 14 0RF albuterol sulfate 90 mcg/actuation HFA aerosol inhaler 2 puff INHALATION Q4H PRN (Reason: Shortness Of Breath Or Wheezing) furosemide 20 mg tablet 20 mg PO QAM Rx Instructions: TAKE 1 TABLET BY MOUTH EVERY MORNING sacubitril-valsartan [Entresto] 49-51 mg tablet 1 tab PO BID Discontinued doxycycline hyclate 100 mg capsule 100 mg PO BID 10 Days Qty: 20 0RF metoprolol succinate 25 mg tablet extended release 24 hr 25 mg PO DAILY Qty: 30 0RF Referrals: Iban Olivo MD [Physician] - 2 weeks Yulisa De La Cruz PA [Primary Care Provider] - 4-7 days Discharge Diet: Cardiac Discharge Activity: Resume usual activity Patient Instructions: Opioid Safety Activity Restrictions/Additional Instructions: Take all medicine as prescribed Follow-up with primary care provider 3 to 5 days, cardiology 2 weeks Return for any concerns Note medication changes of increase metoprolol, addition of magnesium, addition of Protonix. Stop doxycycline. Discharge Attestations Time Spent in Discharge Care*: greater than 30 min Quality Metrics Clinical Quality Measures [ No reported AMI, CVA or VTE this stay] Coding Level of Care Code 82974 Total time (in minutes) for Discharge: 36 Diagnoses Atherosclerotic heart disease of [place] coronary artery with other forms of angina pectoris I25.118 Premature ventricular contractions I49.3 Heart failure with improved ejection fraction (HFimpEF) I50.32 Dyslipidemia E78.5 History of smoking 25-50 pack years Z87.891 Aberrant right subclavian artery Q27.8 Benign hypertension I10 Time Spent (min) 35
[2024-09-02] MEDS: enoxaparin 40 mg/0.4 mL Syringe SUBCUT (10:17)
[2024-09-02] MEDS: pantoprazole 40 mg SDV IVP (10:17)
== END 2024-09-02 13:32 | disposition home or self-care (01) ==
LOC: ER 07:48 → ER IP 13:02 → CSU 13:27 → ER IP 14:06 → CSU 14:58
PROVIDERS: Admitting Provider Internal Medicine; Emergency Provider Family Medicine; PCP Physician Assistant; Visit Provider Internal Medicine
DX: I25.118 Atherosclerotic heart disease of native coronary artery with other forms of angina pectoris (principal); I49.3 Ventricular premature depolarization; I11.0 Hypertensive heart disease with heart failure; I50.23 Acute on chronic systolic (congestive) heart failure; R60.0 Localized edema; E78.5 Hyperlipidemia, unspecified; Z87.891 Personal history of nicotine dependence; Q27.8 Other specified congenital malformations of peripheral vascular system; I25.2 Old myocardial infarction; Z95.5 Presence of coronary angioplasty implant and graft; I25.5 Ischemic cardiomyopathy
CPT/HCPCS: 36415; 71045; 80053; 83735; 84443; 84484; 85025; 85378; 93005; 93308; 93970; 94640; 96372; 96374; 99285; G0378; J1650; J2470; J7626

== ENCOUNTER 2024-11-27 05:24 | Observation (INO) | payer BC, SELFPAY ==
[2024-11-27] VITALS (15 sets, daily range): BP systolic 102–173; BP diastolic 57–111; PULSE 51–72; RESP 12–18; TEMP 36.8–36.9; O2SAT 92–97; BMI 49.3
--- NOTE | 2024-11-27 05:31 | ECG_ITS ---
[facility] Test Date: 2024-11-27 Pat Name: Natacha Romano Department: Room: Gender: Female Time Study Technologist: : 1975 Requested By: Selina Echevarria Order Number: [id number] Niki MD: Baltazar Jackman M.D. Measurements Intervals [place] Rate: 65 P: 22 LA: 128 QRS: 47 QRSD: 79 T: 39 QT: 410 QTc: 426 Interpretive Statements SINUS RHYTHM LOW QRS VOLTAGE IN PRECORDIAL LEADS [QRS DEFLECTION < 1.0 mV IN CHEST LEADS] ANTEROSEPTAL MYOCARDIAL INFARCTION , PROBABLY OLD [40+ ms Q WAVE IN V1-V4] Compared to ECG 09/01/2024 12:23:15 No significant changes Electronically Signed On 11-28-2024 18:16:54 CDT by Baltazar Jackman M.D. [email or web address]
--- NOTE | 2024-11-27 05:31 | W.ED.CHESTPA ---
Documented by User: Selina Hassan MD 11/27/24 05:33 HPI - Chest Pain General: Chief Complaint: Chest Pain Stated Complaint: CP pressure bout passed outsob Time Seen by Provider: 11/27/24 05:31 History of Present Illness: 49-year-old female with a history of morbid obesity, coronary artery disease status post stents, hypertension and CHF who presents to the emergency room with chest pain, dizziness. She says she woke with this this morning. She had tightness throughout her central chest that radiated into her left neck. She says it feels similar to when she had her heart attack. No cough. No fever. She says she did just recently have emergency dental surgery for an abscess. She had a tooth pulled and then it became infected she says. Related Data Home Medications ?Medication ?Instructions ?Recorded ?Confirmed cetirizine 10 mg tablet 10 mg PO DAILY 12/21/23 11/27/24 fluticasone 100 mcg-salmeterol 50 1 inh inhalation BID PRN Shortness 06/03/24 11/27/24 mcg/dose blistr powdr for Of Breath inhalation (Wixela Inhub) potassium citrate 99 mg capsule 99 mg PO DAILY 06/03/24 11/27/24 albuterol sulfate 90 mcg/actuation 2 puff inhalation Q4H PRN 09/01/24 11/27/24 aerosol inhaler Shortness Of Breath Or Wheezing furosemide 20 mg tablet 20 mg PO QAM 09/01/24 11/27/24 escitalopram oxalate 10 mg tablet 10 mg PO DAILY 11/27/24 11/27/24 ipratropium 0.5 mg-albuterol 3 mg 2.5 ml inhalation QID PRN 11/27/24 11/27/24 (2.5 mg base)/3 mL nebulization Shortness Of Breath soln metformin 500 mg tablet 500 mg PO BID 11/27/24 11/27/24 Previous Rx's ?Medication ?Instructions ?Recorded simvastatin 40 mg tablet (Zocor) 40 mg PO QPM #90 tabs 10/31/23 aspirin 81 mg tablet,delayed 81 mg PO DAILY #90 tabs 12/20/23 release hydrocodone 5 mg-acetaminophen 325 1 tab PO Q6H PRN pain #14 tabs 06/09/24 mg tablet magnesium L-lactate 84 mg 84 mg PO BID #60 tabs 09/02/24 tablet,extended release (Magtab) pantoprazole 40 mg tablet,delayed 40 mg PO DAILY #30 tabs 09/02/24 release (Protonix) clopidogrel 75 mg tablet 75 mg PO DAILY #90 tabs 09/30/24 isosorbide mononitrate 60 mg 60 mg PO DAILY #90 tabs 09/30/24 tablet,extended release 24 hr metoprolol succinate 50 mg 50 mg PO DAILY #90 tabs 09/30/24 tablet,extended release 24 hr sacubitril 49 mg-valsartan 51 mg 1 tab PO BID #90 tabs 09/30/24 tablet (Entresto) Allergies Allergy/AdvReac Type Severity Reaction Status Date / Time milk Allergy Severe ALGY-Difficulty Verified 09/16/24 12:59 Breathing Review of Systems Narrative: Constitutional symptoms: Negative except as documented in HPI. Skin symptoms: Negative except as documented in HPI. Eye symptoms: Negative except as documented in HPI. ENMT symptoms: Negative except as documented in HPI. Respiratory symptoms: Negative except as documented in HPI. Cardiovascular symptoms: Negative except as documented in HPI. Gastrointestinal symptoms: Negative except as documented in HPI. Genitourinary symptoms: Negative except as documented in HPI. Musculoskeletal symptoms: Negative except as documented in HPI. Neurologic symptoms: Negative except as documented in HPI. Psychiatric symptoms: Negative except as documented in HPI. Endocrine symptoms: Negative except as documented in HPI. PFSH ED PFSH: Medical History CHF (congestive heart failure), NYHA class II Coronary artery disease STEMI (ST elevation myocardial infarction) Surgical History Presence of stent in LAD coronary artery Social History Smoking and tobacco/nicotine status: former use of tobacco/nicotine Physical Exam Narrative: EXAM NARRATIVE: General: Alert, no acute distress. Skin: Warm, dry. Head: Normocephalic, atraumatic. Neck: Supple, trachea midline. Eye: Extraocular movements are intact. Ears, nose, mouth and throat: mucosa moist. Cardiovascular: Regular, Normal peripheral perfusion. Respiratory: Lungs are clear to auscultation, respirations are non-labored, breath sounds are equal, Symmetrical chest wall expansion. Gastrointestinal: Soft, Nontender, Non distended Musculoskeletal: Normal ROM, no deformity. Neurological: Alert and oriented, No focal neurological deficit observed. Psychiatric: Cooperative, appropriate mood & affect. Course Vital Signs: Vital signs: Vital Signs Pulse Rate 62 11/27/24 12:20 Respiratory Rate 16 11/27/24 10:11 Blood Pressure 116/69 11/27/24 12:20 Pulse Oximetry 95 11/27/24 12:20 Oxygen Delivery Me thod Room Air 11/27/24 12:20 MDM - Chest Pain Medical Decision Making Patient care transitioned to Dr. Hilliard at shift change. Lab Data 11/27/24 05:56 11/27/24 05:56 Radiology Impressions Chest X-Ray 11/27/24 05:57 IMPRESSION: No acute findings. Laboratory Results WBC 9.73 10^3/uL (3.29-11.43) 11/27/24 05:56 RBC 4.28 10^6/uL (3.85-5.65) 11/27/24 05:56 Hgb 13.30 g/dL (11.27-16.99) 11/27/24 05:56 Hct 40.1 % (36-47) 11/27/24 05:56 MCV 93.7 fl (85-98) 11/27/24 05:56 MCH 31.1 pg (27-33) 11/27/24 05:56 MCHC 33.2 g/dL (30-55) 11/27/24 05:56 RDW 13.7 % (12.1-15.1) 11/27/24 05:56 Plt Count 268 10^3/cmm (157-399) 11/27/24 05:56 MPV 9.5 fL (7.4-10.4) 11/27/24 05:56 Neut % (Auto) 60.2 % 11/27/24 05:56 Lymph % (Auto) 31.7 % 11/27/24 05:56 [place] % (Auto) 6.1 % 11/27/24 05:56 Eos % (Auto) 1.2 % 11/27/24 05:56 Baso % (Auto) 0.6 % 11/27/24 05:56 Neut # (Auto) 5.86 10^3/uL (1.8-7.7) 11/27/24 05:56 Lymph # (Auto) 3.1 10^3/uL (0.8-4.8) 11/27/24 05:56 [place] # (Auto) 0.6 10^3/uL (0.2-0.9) 11/27/24 05:56 Eos # (Auto) 0.1 10^3/uL (0.0-0.8) 11/27/24 05:56 Baso # (Auto) 0.1 10^3/uL (0.0-0.1) 11/27/24 05:56 Nucleated RBC % (auto) 0 % 11/27/24 05:56 Nucleated RBCs # 0.0 /100WBC 11/27/24 05:56 Sodium 139 mmol/L (136-145) 11/27/24 05:56 Potassium 4.4 mmol/L (3.5-5.1) 11/27/24 05:56 Chloride 105 mmol/L (98-107) 11/27/24 05:56 Carbon Dioxide 22 mmol/L (22-29) 11/27/24 05:56 Anion Gap 16.4 (5-19) 11/27/24 05:56 BUN 12 mg/dL (6-20) 11/27/24 05:56 Creatinine 0.7 mg/dL (0.5-0.9) 11/27/24 05:56 GFR Calculation 89.3 mL/min (90-130) L 11/27/24 05:56 Glucose 122 mg/dL (65-115) H 11/27/24 05:56 Calculated Osmolality 289 mOsm/kg (285-295) 11/27/24 05:56 Calcium 9.0 mg/dL (8.5-10.5) 11/27/24 05:56 Total Bilirubin 0.2 mg/dL (0.15-1.2) 11/27/24 05:56 AST 15 U/L (0-32) 11/27/24 05:56 ALT 14 U/L (0-33) 11/27/24 05:56 Alkaline Phosphatase 80 U/L (35-105) 11/27/24 05:56 Troponin T Baseline 7 ng/L (0-10) 11/27/24 05:56 Troponin T 120 Minute 10.73 ng/L (0-10) H 11/27/24 07:51 Delta Troponin T 3.73 ABS# (0-10) 11/27/24 07:51 Troponin T Hi Sens 6Hr 8.17 ng/L (0-10) 11/27/24 11:51 Troponin T Hi Sens 6Hr Delta 1.17 ng/L (0-12) 11/27/24 11:51 C-Reactive Protein 7.8 mg/L (0.0-4.9) H 11/27/24 05:56 NT-Pro-B Natriuret Pep 256 pg/mL (0-125) H 11/27/24 05:56 Total Protein 6.5 g/dL (6.6-8.7) L 11/27/24 05:56 Albumin 4.0 g/dL (3.5-5.2) 11/27/24 05:56 Globulin 2.5 g/dL (1.3-4.6) 11/27/24 05:56 Discharge Plan Discharge Patient Disposition: Placed in Observation Admit Provider: Radha Ca Clinical Impression: Atherosclerotic heart disease of [place] coronary artery with other forms of angina pectoris, TIA (transient ischemic attack) Discharge Diet: Usual diet Discharge Activity: Resume usual activity Sign Out Sign Out Data: Patient Sign Out occurred on 11/27/24 at 05:41. Patient's care was discussed, and care was transferred from Selina Hassan MD to William Hilliard DO. Coding Level of Care Code ED [employer] for Chg Fwd Documented by User: William Hilliard DO 11/27/24 13:00 HPI - Chest Pain General: Chief Complaint: Chest Pain Stated Complaint: CP pressure bout passed outsob Time Seen by Provider: 11/27/24 05:31 Related Data Home Medications ?Medication ?Instructions ?Recorded ?Confirmed cetirizine 10 mg tablet 10 mg PO DAILY 12/21/23 11/27/24 fluticasone 100 mcg-salmeterol 50 1 inh inhalation BID PRN Shortness 06/03/24 11/27/24 mcg/dose blistr powdr for Of Breath inhalation (Wixela Inhub) potassium citrate 99 mg capsule 99 mg PO DAILY 06/03/24 11/27/24 albuterol sulfate 90 mcg/actuation 2 puff inhalation Q4H PRN 09/01/24 11/27/24 aerosol inhaler Shortness Of Breath Or Wheezing furosemide 20 mg tablet 20 mg PO QAM 09/01/24 11/27/24 escitalopram oxalate 10 mg tablet 10 mg PO DAILY 11/27/24 11/27/24 ipratropium 0.5 mg-albuterol 3 mg 2.5 ml inhalation QID PRN 11/27/24 11/27/24 (2.5 mg base)/3 mL nebulization Shortness Of Breath soln metformin 500 mg tablet 500 mg PO BID 11/27/24 11/27/24 Previous Rx's ?Medication ?Instructions ?Recorded simvastatin 40 mg tablet (Zocor) 40 mg PO QPM #90 tabs 10/31/23 aspirin 81 mg tablet,delayed 81 mg PO DAILY #90 tabs 12/20/23 release hydrocodone 5 mg-acetaminophen 325 1 tab PO Q6H PRN pain #14 tabs 06/09/24 mg tablet magnesium L-lactate 84 mg 84 mg PO BID #60 tabs 09/02/24 tablet,extended release (Magtab) pantoprazole 40 mg tablet,delayed 40 mg PO DAILY #30 tabs 09/02/24 release (Protonix) clopidogrel 75 mg tablet 75 mg PO DAILY #90 tabs 09/30/24 isosorbide mononitrate 60 mg 60 mg PO DAILY #90 tabs 09/30/24 tablet,extended release 24 hr metoprolol succinate 50 mg 50 mg PO DAILY #90 tabs 09/30/24 tablet,extended release 24 hr sacubitril 49 mg-valsartan 51 mg 1 tab PO BID #90 tabs 09/30/24 tablet (Entresto) Allergies Allergy/AdvReac Type Severity Reaction Status Date / Time milk Allergy Severe ALGY-Difficulty Verified 09/16/24 12:59 Breathing [facility] ED PFSH: Medical History CHF (congestive heart failure), NYHA class II Coronary artery disease STEMI (ST elevation myocardial infarction) Surgical History Presence of stent in LAD coronary artery Social History Smoking and tobacco/nicotine status: former use of tobacco/nicotine Course Vital Signs: Vital signs: Vital Signs Pulse Rate 62 11/27/24 12:20 Respiratory Rate 16 11/27/24 10:11 Blood Pressure 116/69 11/27/24 12:20 Pulse Oximetry 95 11/27/24 12:20 Oxygen Delivery Me thod Room Air 11/27/24 12:20 MDM - Chest Pain Medical Decision Making Patient care transitioned to Dr. Hilliard at shift change. Care assumed at change of shift. Patient tells me she has had 3 episodes in the last approximately 36 hours on the morning of November 26 she had an episode at 1 AM and at 4 AM both episodes woke her from sleep she had chest pain radiating to her neck and shortness of breath they both resolved spontaneously in about 5 minutes they also both included brief periods of time where she felt she had difficulty focusing difficulty thinking she states she was in a brain fog and could not speak. She did not take anything for either of these episodes and they both resolved spontaneously during the day yesterday she did not have any further symptoms then this morning at 430 she had another episode that was similar to it. She states all 3 of these episodes have felt like she felt when she had her first heart attack. Patient had an angiogram done in November of last year showed the LAD stent to be patent but putting some pressure on the obtuse marginal it did not seem significant at the time per the notes from the construction rep from the angiogram. Given the patient's intermittent unprovoked symptoms and the concern for possible TIAs as well we will admit. Patient is already on dual antiplatelet therapy with both aspirin and clopidogrel. In addition to that she is on a statin simvastatin 40 mg daily. Discussed with hospitalist and will consult cardiology as well Medical Records I reviewed the patient's medical records. Lab Data I reviewed the patient's lab results. 11/27/24 05:56 11/27/24 05:56 Radiology Impressions Chest X-Ray 11/27/24 05:57 IMPRESSION: No acute findings. Laboratory Results WBC 9.73 10^3/uL (3.29-11.43) 11/27/24 05:56 RBC 4.28 10^6/uL (3.85-5.65) 11/27/24 05:56 Hgb 13.30 g/dL (11.27-16.99) 11/27/24 05:56 Hct 40.1 % (36-47) 11/27/24 05:56 MCV 93.7 fl (85-98) 11/27/24 05:56 MCH 31.1 pg (27-33) 11/27/24 05:56 MCHC 33.2 g/dL (30-55) 11/27/24 05:56 RDW 13.7 % (12.1-15.1) 11/27/24 05:56 Plt Count 268 10^3/cmm (157-399) 11/27/24 05:56 MPV 9.5 fL (7.4-10.4) 11/27/24 05:56 Neut % (Auto) 60.2 % 11/27/24 05:56 Lymph % (Auto) 31.7 % 11/27/24 05:56 [place] % (Auto) 6.1 % 11/27/24 05:56 Eos % (Auto) 1.2 % 11/27/24 05:56 Baso % (Auto) 0.6 % 11/27/24 05:56 Neut # (Auto) 5.86 10^3/uL (1.8-7.7) 11/27/24 05:56 Lymph # (Auto) 3.1 10^3/uL (0.8-4.8) 11/27/24 05:56 [place] # (Auto) 0.6 10^3/uL (0.2-0.9) 11/27/24 05:56 Eos # (Auto) 0.1 10^3/uL (0.0-0.8) 11/27/24 05:56 Baso # (Auto) 0.1 10^3/uL (0.0-0.1) 11/27/24 05:56 Nucleated RBC % (auto) 0 % 11/27/24 05:56 Nucleated RBCs # 0.0 /100WBC 11/27/24 05:56 Sodium 139 mmol/L (136-145) 11/27/24 05:56 Potassium 4.4 mmol/L (3.5-5.1) 11/27/24 05:56 Chloride 105 mmol/L (98-107) 11/27/24 05:56 Carbon Dioxide 22 mmol/L (22-29) 11/27/24 05:56 Anion Gap 16.4 (5-19) 11/27/24 05:56 BUN 12 mg/dL (6-20) 11/27/24 05:56 Creatinine 0.7 mg/dL (0.5-0.9) 11/27/24 05:56 GFR Calculation 89.3 mL/min (90-130) L 11/27/24 05:56 Glucose 122 mg/dL (65-115) H 11/27/24 05:56 Calculated Osmolality 289 mOsm/kg (285-295) 11/27/24 05:56 Calcium 9.0 mg/dL (8.5-10.5) 11/27/24 05:56 Total Bilirubin 0.2 mg/dL (0.15-1.2) 11/27/24 05:56 AST 15 U/L (0-32) 11/27/24 05:56 ALT 14 U/L (0-33) 11/27/24 05:56 Alkaline Phosphatase 80 U/L (35-105) 11/27/24 05:56 Troponin T Baseline 7 ng/L (0-10) 11/27/24 05:56 Troponin T 120 Minute 10.73 ng/L (0-10) H 11/27/24 07:51 Delta Troponin T 3.73 ABS# (0-10) 11/27/24 07:51 Troponin T Hi Sens 6Hr 8.17 ng/L (0-10) 11/27/24 11:51 Troponin T Hi Sens 6Hr Delta 1.17 ng/L (0-12) 11/27/24 11:51 C-Reactive Protein 7.8 mg/L (0.0-4.9) H 11/27/24 05:56 NT-Pro-B Natriuret Pep 256 pg/mL (0-125) H 11/27/24 05:56 Total Protein 6.5 g/dL (6.6-8.7) L 11/27/24 05:56 Albumin 4.0 g/dL (3.5-5.2) 11/27/24 05:56 Globulin 2.5 g/dL (1.3-4.6) 11/27/24 05:56 All radiology interpretation(s) finalized by discharge Discharge Plan Discharge Patient Disposition: Placed in Observation Admit Provider: Radha Ca Clinical Impression: Atherosclerotic heart disease of [place] coronary artery with other forms of angina pectoris, TIA (transient ischemic attack) Discharge Diet: Usual diet Discharge Activity: Resume usual activity Sign Out Sign Out Data: Patient Sign Out occurred on 11/27/24 at 05:41. Patient's care was discussed, and care was transferred from Selina Hassan MD to William Hilliard DO. Coding Level of Care Code ED [employer] for Joy Guardado
--- NOTE | 2024-11-27 05:44 | PC.NURSE ---
PT STATED, GET YOUR BEST PERSON FOR IVS, SHES ALWAYS HARD. NURSE ASKED PT IF THERE WAS A PARTICULAR PLACE THEY NORMALLY GOT AN IV, AND ATTEMPTED AT THAT SPOT. AFTER 1 IV ATTEMPT BY NURSE, PT STATED, IM DONE WITH THE IVS, IM NOT DOING IT ANYMORE. PT STATED, I TRIED TO TELL YOU!
--- NOTE | 2024-11-27 05:57 | XRR_ITS ---
PROCEDURE INFORMATION: Exam: XR Chest Exam date and time: 11/27/2024 6:04 AM Age: 49 years old Clinical indication: Pain; Chest pressure; Additional info: Dyspnea/cough TECHNIQUE: Imaging protocol: Radiologic exam of the chest. Views: 1 view. COMPARISON: CR XR chest 1V portable [id number] 09/01/2024 6:41 AM FINDINGS: Lungs: Unremarkable. No consolidation. Pleural spaces: Unremarkable. No pleural effusion. No pneumothorax. Heart/Mediastinum: Unremarkable. No cardiomegaly. Bones/joints: Unremarkable. XR/XR chest 1V portable [id number] IMPRESSION: No acute findings.
[2024-11-27 06:09] LABS: Basophils # 0.1 10^3/uL (0.0-0.1); Basophils % 0.6 %; Eosinophils # 0.1 10^3/uL (0.0-0.8); Eosinophils % 1.2 %; Hematocrit 40.1 % (36-47); Lymphocytes # 3.1 10^3/uL (0.8-4.8); Lymphocytes % 31.7 %; Mean Corpuscular HGB Conc 33.2 g/dL (30-55); Mean Corpuscular Hemoglobin 31.1 pg (27-33); Mean Corpuscular Volume 93.7 fl (85-98); Mean Platelet Volume 9.5 fL (7.4-10.4); Monocytes # 0.6 10^3/uL (0.2-0.9); Monocytes % 6.1 %; Neutrophils # 5.86 10^3/uL (1.8-7.7); Neutrophils % 60.2 %; Nucleated Red Blood Cells % 0 %; Platelet Count 268 10^3/cmm (157-399); Red Blood Count 4.28 10^6/uL (3.85-5.65); Red Cell Distribution Width 13.7 % (12.1-15.1); White Blood Count 9.73 10^3/uL (3.29-11.43)
[2024-11-27 06:24] LABS: Troponin(5th) Baseline 7 ng/L (0-10)
[2024-11-27 06:37] LABS: Alanine Aminotransferase 14 U/L (0-33); Alkaline Phosphatase 80 U/L (35-105); Anion Gap 16.4 (5-19); Aspartate Amino Transferase 15 U/L (0-32); Blood Urea Nitrogen 12 mg/dL (6-20); C Reactive Protein 7.8 mg/L (0.0-4.9); Carbon Dioxide 22 mmol/L (22-29); Chloride 105 mmol/L (98-107); Creatinine Clr Calc Pharmacy 146.0242; Globulin 2.5 g/dL (1.3-4.6); Glomerular Filtration Rate 89.3 mL/min (90-130); Glucose 122 mg/dL (65-115); NT Pro B Type Natriuretic Pept 256 pg/mL (0-125); Osmolality Calculated 289 mOsm/kg (285-295); Potassium 4.4 mmol/L (3.5-5.1); Sodium 139 mmol/L (136-145); Total Bilirubin 0.2 mg/dL (0.15-1.2); Total Protein 6.5 g/dL (6.6-8.7)
--- NOTE | 2024-11-27 07:27 | ECG_ITS ---
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1975 Requested By: Selina Echevarria Order Number: [id number] Reading MD: CLAIR JAMES Measurements Intervals [place] Rate: 60 P: 21 DC: 113 QRS: 53 QRSD: 97 T: 55 QT: 442 QTc: 445 Interpretive Statements SINUS RHYTHM WITH SHORT DC INTERVAL LOW QRS VOLTAGE IN PRECORDIAL LEADS [QRS DEFLECTION < 1.0 mV IN CHEST LEADS] SEPTAL MYOCARDIAL INFARCTION , PROBABLY OLD [40+ ms Q WAVE IN V1/V2] Compared to ECG 11/27/2024 05:31:10 Short DC interval now present Myocardial infarct finding still present Electronically Signed On 11-29-2024 22:03:58 CDT by CLAIR JAMES [email or web address]
[2024-11-27 08:22] LABS: Troponin 5 2HR 10.73 ng/L (0-10); Troponin 5 2HR Delta 3.73 ABS# (0-10)
--- NOTE | 2024-11-27 11:41 | ECG_ITS ---
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1975 Requested By: Selina Echevarria Order Number: [id number] Reading MD: CLAIR JAMES Measurements Intervals [place] Rate: 51 P: 12 [place]: 131 QRS: -8 QRSD: 76 T: 9 QT: 440 QTc: 408 Interpretive Statements SINUS BRADYCARDIA LOW QRS VOLTAGE IN PRECORDIAL LEADS [QRS DEFLECTION < 1.0 mV IN CHEST LEADS] ANTEROSEPTAL MYOCARDIAL INFARCTION , PROBABLY OLD [40+ ms Q WAVE IN V1-V4] Compared to ECG 11/27/2024 07:27:05 Sinus rhythm no longer present Short [place] interval no longer present Myocardial infarct finding still present Electronically Signed On 11-29-2024 22:04:16 CDT by CLAIR JAMES [id number]
[2024-11-27 12:20] LABS: Troponin 5 6HR 8.17 ng/L (0-10); Troponin 5 6HR Delta 1.17 ng/L (0-12)
--- NOTE | 2024-11-27 16:00 | PM.HP ---
Providers/Chief Complaint Admitting Physician: Radha Ca MD Primary Care Provider: Yulisa De La Cruz Chief Complaint: CP pressure bout passed out sob History of Present Illness Natacha Romano is a 49 year old female past medical history of hyperlipidemia, type 2 diabetes mellitus on OHA, CAD post PCI to LAD, ischemic cardiomyopathy with EF of 45% with last angiogram from November 2023 showing patent stent present to the ER today with complaining of chest pain and dizziness which started when she woke up in the morning. She had chest tightness radiating to the left side of her neck similar to her CA in the past. She states she has been compliant with her medications. Denies any changes in her medications but does give history of dental surgery recently for an abscess. Review of Systems General: Reports: 10 or more systems reviewed and unremarkable except in HPI and below Const: Denies: fever(s), chills, body aches, change in appetite, change in weight, malaise, night sweats, diaphoresis, change in sleep pattern, daytime sleepiness or snoring Eyes: Denies: change in vision, blurry vision, photophobia, eye discomfort or eye discharge ENMT: Denies: throat pain, enlarged tonsils, hoarseness, mouth pain, oral sores, dry mouth, tinnitus, nasal congestion or post nasal drip Card: Denies: chest pain, palpitations, irregular heart rhythm, edema, swelling of feet/ankles, lightheadedness, syncope, pre-syncope, dyspnea on exertion, orthopnea, leg pain with exertion or acrocyanosis Resp: Denies: dyspnea, productive cough, non-productive cough, wheezing, stridor, pain on inspiration, change in phlegm color, hemoptysis or chest congestion GI: Denies: abdominal pain, nausea, vomiting, hematemesis, coffee ground emesis, dysphagia, heartburn, diarrhea, constipation, bloating, GI cramping, change in bowel habits, pain on defecation, hematochezia or melena : Denies: flank pain, dysuria, urinary frequency, urinary urgency, urinary hesitancy, nocturia or hematuria Musc: Denies: neck pain, back pain, extremity pain, joint pain, joint swelling, joint redness, joint stiffness or limited range of motion Neuro: Denies: headache(s), numbness in extremities, weakness in extremities, sensory changes, lack of coordination, difficulty walking, frequent falls, dizziness, vertigo, confusion, Slurred speech present, difficulty communicating thoughts or seizure-like activity Psych: Denies: anxiety, depression, mood swings, panic attacks, hopelessness or irritability Endo: Denies: polyuria, polydipsia, tired all the time, cold intolerance, excessive sweating, flushing or heat intolerance Norris/Lymph: Denies: easy bruising or easy bleeding All/Imm: Denies: tongue swelling, facial swelling or acute wheezing Medications/Allergies Home Medications ?Medication ?Instructions ?Recorded ?Confirmed ?Last Taken ?Type simvastatin 40 mg tablet (Zocor) 40 mg PO QPM #90 tabs 10/31/23 11/27/24 11/26/24 Rx aspirin 81 mg tablet,delayed 81 mg PO DAILY #90 tabs 12/20/23 11/27/24 11/27/24 Rx release cetirizine 10 mg tablet 10 mg PO DAILY 12/21/23 11/27/24 11/27/24 History fluticasone 100 mcg-salmeterol 50 1 inh inhalation BID PRN Shortness 06/03/24 11/27/24 Unknown History mcg/dose blistr powdr for Of Breath inhalation (Wixela Inhub) potassium citrate 99 mg capsule 99 mg PO DAILY 06/03/24 11/27/24 11/27/24 History hydrocodone 5 mg-acetaminophen 325 1 tab PO Q6H PRN pain #14 tabs 06/09/24 11/27/24 Unknown Rx mg tablet albuterol sulfate 90 mcg/actuation 2 puff inhalation Q4H PRN 09/01/24 11/27/24 Unknown History aerosol inhaler Shortness Of Breath Or Wheezing furosemide 20 mg tablet 20 mg PO QAM 09/01/24 11/27/24 11/27/24 History magnesium L-lactate 84 mg 84 mg PO BID #60 tabs 09/02/24 11/27/24 11/27/24 Rx tablet,extended release (Magtab) pantoprazole 40 mg tablet,delayed 40 mg PO DAILY #30 tabs 09/02/24 11/27/24 11/27/24 Rx release (Protonix) clopidogrel 75 mg tablet 75 mg PO DAILY #90 tabs 09/30/24 11/27/24 11/27/24 Rx isosorbide mononitrate 60 mg 60 mg PO DAILY #90 tabs 09/30/24 11/27/24 11/27/24 Rx tablet,extended release 24 hr metoprolol succinate 50 mg 50 mg PO DAILY #90 tabs 09/30/24 11/27/24 11/27/24 Rx tablet,extended release 24 hr sacubitril 49 mg-valsartan 51 mg 1 tab PO BID #90 tabs 09/30/24 11/27/24 11/27/24 Rx tablet (Entresto) escitalopram oxalate 10 mg tablet 10 mg PO DAILY 11/27/24 11/27/24 11/27/24 History ipratropium 0.5 mg-albuterol 3 mg 2.5 ml inhalation QID PRN 11/27/24 11/27/24 Unknown History (2.5 mg base)/3 mL nebulization Shortness Of Breath soln metformin 500 mg tablet 500 mg PO BID 11/27/24 11/27/24 11/27/24 History Allergies Allergy/AdvReac Type Severity Reaction Status Date / Time milk Allergy Severe ALGY-Difficulty Verified 09/16/24 12:59 Breathing PFSH Acute PFSH: Medical History (Updated 11/27/24 @ 16:52 by Zeb Conte MD) Morbid obesity Premature ventricular contractions Aberrant right subclavian artery Heart failure with improved ejection fraction (HFimpEF) Benign hypertension History of smoking 25-50 pack years CHF (congestive heart failure), NYHA class II Coronary artery disease STEMI (ST elevation myocardial infarction) Surgical History Presence of stent in LAD coronary artery Social History Smoking and tobacco/nicotine status: former use of tobacco/nicotine Vitals/I&O/Wt Last Vital Signs Pulse 60 11/27/24 15:27 Resp 16 11/27/24 10:11 BP 150/98 11/27/24 15:27 Pulse Ox 97 11/27/24 15:27 O2 Del Method Room Air 11/27/24 15:27 11/27/24 11/27/24 11/27/24 06:59 14:59 22:59 Intake Total 0 / 0 Balance 0 / 0 Weight last 48 hrs Weight 142.882 kg Physical Exam Narrative: General: No acute distress, AO x3 HEENT: PERRLA, pupils bilaterally equal and reactive Chest: Normal vesicular breath sounds, no added sounds, equal good air entry bilaterally CVS: S1-S2 regular, no murmurs, no tachycardia, no gallops, no rubs Abdomen: Soft, nontender, no organomegaly, bowel sounds present Neuro: No focal deficits, no facial deformity, AO x3, power 5/5 in all limbs Data 11/28/24 05:16 11/28/24 05:16 A&P Assessment and plan (1) Atherosclerotic heart disease of [place] coronary artery with other forms of angina pectoris: History of CAD with PCI in the. Last angiogram provide 24 ast showed patent LAD stent. Cardiology consulted from the ER. Plan for possible cardiac angiogram in AM. N.p.o. after midnight. Troponin cycled negative. Continue to trend 6-hour troponin. Continue aspirin, Plavix, statin, beta-travon. Home dose of Imdur. Check A1c, lipid panel. Repeat echocardiogram. Morphine 1 mg every 4 hours as needed for chest pain. Does have repeat chest pain with plan for troponin cycled. (2) Coronary artery disease: Qualifiers: Associated angina: without angina Coronary Disease-Associated Artery/Lesion type: [place] artery [place] vs. transplanted heart: [place] heart Qualified Code(s): I25.10 - Atherosclerotic heart disease of [place] coronary artery without angina pectoris (3) Heart failure with improved ejection fraction (HFimpEF): Last known EF of 45% on echocardiogram 12/14/2023. Check in problem charting, daily weights. Echocardiogram as above. Fluid restriction to less than 1500 cc. Continue with guideline directed medical therapy including Entresto and metoprolol. (4) Benign hypertension: Goal blood pressure less than 140/90 mmHg. (5) Morbid obesity: Plan Full code Heparin for DVT prophylaxis Protonix OPD prophylaxis PDMP PDMP Reviewed: Not Reviewed Attestations Medical Necessity Statement*: Admission under observation for management of unstable angina in setting of CAD post PCI, heart failure with reduced ejection fraction Diagnoses Atherosclerotic heart disease of [place] coronary artery with other forms of angina pectoris I25.118 Coronary artery disease involving [place] coronary artery of [place] heart without angina pectoris I25.10 Associated angina: without angina Coronary Disease-Associated Artery/Lesion type: [place] artery [place] vs. transplanted heart: [place] heart Heart failure with improved ejection fraction (HFimpEF) I50.32 Benign hypertension I10 Morbid obesity E66.01
[2024-11-27 16:34] LABS: Estmated Average Glucose 131; Hemoglobin A1C 6.2 % (4.0-6.0)
[2024-11-27] MEDS: heparin 5,000 unit/mL INJ 1 mL 5000 UNIT SUBCUT ×2 (16:43→23:56)
--- NOTE | 2024-11-27 16:49 | PM.CONSULT ---
Documented by User: Dara Thompson NP 11/27/24 16:59 Providers/Reason For Consult Consulting Physician/Specialty*: Dr. Encinas Reason for Consult*: Chest pain Requesting Physician: Dr. Hilliard Attending Physician: Zeb Conte MD Primary Care Provider: Yulisa De La Cruz History of Present Illness History of Present Illness Natacha Romano is a 49 year old female with a history of STEMI requiring stent to the ostial LAD in 2022. She had a subsequent cath in november that showed patent LAD stent with minimal ostial pinching of the diag and mildly reduced EF at 45%. She has a hx of TIA, PVC, atypical chest pain, dyslipidemia. She came in today due to chest pain that started yesterday. She states she was sitting still, and she developed central chest pressure that radiated down her left arm. She stated this happened intermittently and would come and go. She decided to come into the ER because of this. She states she felt as if she had something sitting on her chest. She states these are the symptoms she had with her first stenting procedure. Ekg showed no acute ST or T wave changes. Her troponins were negative. She does not appear to be in decompensated heart failure. Review of Systems Narrative: Consitutional: denies fever, chills, body aches, or changes in appetite, denies abnormal weight loss Eyes: Denies changes in vision Card: Denies chest pain, palpitations, irregular heart rhythm, edema, syncope, shortness of breath, orthopnea, leg pain with exertion Resp: Denies shortness of breath, denies hemoptysis, denies cough GI: denies abdominal pain, denies nausea or voimting, denies blood in stool : denies blood in urine, denies dysuria Musc: Denies extremity pain, denies limited range of motion or recent injury Skin: Denies rash, lesions, or wounds, denies changes to skin color Neuro: Denies nubmness in extremities, h/a, s/s of stroke Norris: Denies easy bruiding/bleeding Medications/Allergies Home Medications ?Medication ?Instructions ?Recorded ?Confirmed ?Last Taken ?Type simvastatin 40 mg tablet (Zocor) 40 mg PO QPM #90 tabs 10/31/23 11/27/24 11/26/24 Rx aspirin 81 mg tablet,delayed 81 mg PO DAILY #90 tabs 12/20/23 11/27/24 11/27/24 Rx release cetirizine 10 mg tablet 10 mg PO DAILY 12/21/23 11/27/24 11/27/24 History fluticasone 100 mcg-salmeterol 50 1 inh inhalation BID PRN Shortness 06/03/24 11/27/24 Unknown History mcg/dose blistr powdr for Of Breath inhalation (Wixela Inhub) potassium citrate 99 mg capsule 99 mg PO DAILY 06/03/24 11/27/24 11/27/24 History hydrocodone 5 mg-acetaminophen 325 1 tab PO Q6H PRN pain #14 tabs 06/09/24 11/27/24 Unknown Rx mg tablet albuterol sulfate 90 mcg/actuation 2 puff inhalation Q4H PRN 09/01/24 11/27/24 Unknown History aerosol inhaler Shortness Of Breath Or Wheezing furosemide 20 mg tablet 20 mg PO QAM 09/01/24 11/27/24 11/27/24 History magnesium L-lactate 84 mg 84 mg PO BID #60 tabs 09/02/24 11/27/24 11/27/24 Rx tablet,extended release (Magtab) pantoprazole 40 mg tablet,delayed 40 mg PO DAILY #30 tabs 09/02/24 11/27/24 11/27/24 Rx release (Protonix) clopidogrel 75 mg tablet 75 mg PO DAILY #90 tabs 09/30/24 11/27/24 11/27/24 Rx isosorbide mononitrate 60 mg 60 mg PO DAILY #90 tabs 09/30/24 11/27/24 11/27/24 Rx tablet,extended release 24 hr metoprolol succinate 50 mg 50 mg PO DAILY #90 tabs 09/30/24 11/27/24 11/27/24 Rx tablet,extended release 24 hr sacubitril 49 mg-valsartan 51 mg 1 tab PO BID #90 tabs 09/30/24 11/27/24 11/27/24 Rx tablet (Entresto) escitalopram oxalate 10 mg tablet 10 mg PO DAILY 11/27/24 11/27/24 11/27/24 History ipratropium 0.5 mg-albuterol 3 mg 2.5 ml inhalation QID PRN 11/27/24 11/27/24 Unknown History (2.5 mg base)/3 mL nebulization Shortness Of Breath soln metformin 500 mg tablet 500 mg PO BID 11/27/24 11/27/24 11/27/24 History Allergies Allergy/AdvReac Type Severity Reaction Status Date / Time milk Allergy Severe ALGY-Difficulty Verified 09/16/24 12:59 Breathing Current Medications Generic Name Dose Route Start Last Admin Trade Name Freq PRN Reason Stop Dose Admin Heparin Sodium (Porcine) 5,000 unit 11/27/24 16:00 11/27/24 16:43 Heparin 5,000 Unit/Ml Inj 1 Ml SUBCUT 5,000 unit Q8H SUNIL Administration PFSH Acute PFSH: Medical History (Updated 11/27/24 @ 16:52 by Zeb Conte MD) Morbid obesity Premature ventricular contractions Aberrant right subclavian artery Heart failure with improved ejection fraction (HFimpEF) Benign hypertension History of smoking 25-50 pack years CHF (congestive heart failure), NYHA class II Coronary artery disease STEMI (ST elevation myocardial infarction) Surgical History Presence of stent in LAD coronary artery Social History Smoking and tobacco/nicotine status: former use of tobacco/nicotine Vitals/I&O/Wt Last Vital Signs Pulse 58 L 11/27/24 16:00 Resp 16 11/27/24 16:00 BP 115/77 11/27/24 16:00 Pulse Ox 96 11/27/24 16:00 O2 Del Method Room Air 11/27/24 16:20 11/27/24 11/27/24 11/27/24 06:59 14:59 22:59 Intake Total 0 / 0 Balance 0 / 0 Weight last 48 hrs Weight 315 lb Physical Exam Narrative: General: No apparent distress, healthy appearing, well nourished HENMT: normoceophalic Neck: No carotid bruit bilaterally Muskuloskeletal: Full ROM Respiratory: Normal respiratory effort, clear to auscultation bilaterally throughout all lung [place], no use of accessory muscles Cardio: No JVD, regular rate, regular rhythm, S1 S2 normal, no murmurs, peripheral pulses 2+ radial palpated bilaterally GI: Normal to inspection, nondistended Extremities: Full ROM, normal, normal capillary refill, no cyanosis or edema Neuro: Alert and oriented x4, no focal motor deficits Psych: Affect normal, denies suicidal ideation, mental status grossly normal Skin: No rashes or lesions noted, no wounds Data 11/27/24 05:56 11/27/24 05:56 A&P Assessment and plan (1) Coronary artery disease: Qualifiers: Associated angina: without angina Coronary Disease-Associated Artery/Lesion type: [place] artery [place] vs. transplanted heart: [place] heart Qualified Code(s): I25.10 - Atherosclerotic heart disease of [place] coronary artery without angina pectoris (2) CHF (congestive heart failure), NYHA class II: Qualifiers: Congestive heart failure chronicity: acute on chronic Congestive heart failure type: systolic Qualified Code(s): I50.23 - Acute on chronic systolic (congestive) heart failure (3) Atherosclerotic heart disease of [place] coronary artery with other forms of angina pectoris: (4) Benign hypertension: (5) Dyslipidemia: Plan At this time, patient is having atypical chest pain and negative troponins without EKG changes. I would recommend admission for chest pain workup, echocardiogram, and stress test to rule out any further ischemia. Patient agrees to this plan. Further recommendations to be made. Thank you for allowing us to care for this very pleasant 49 year old female. PDMP PDMP Reviewed: Not Reviewed Coding Level of Care Code Acute Code for Chg Fwd Diagnoses Coronary artery disease involving [place] coronary artery of [place] heart without angina pectoris I25.10 Associated angina: without angina Coronary Disease-Associated Artery/Lesion type: [place] artery [place] vs. transplanted heart: [place] heart Acute on chronic systolic congestive heart failure, NYHA class 2 I50.23 Congestive heart failure chronicity: acute on chronic Congestive heart failure type: systolic Atherosclerotic heart disease of [place] coronary artery with other forms of angina pectoris I25.118 Benign hypertension I10 Dyslipidemia E78.5 Documented by User: [email or web address] Encinas MD 11/28/24 01:28 Medications/Allergies Home Medications ?Medication ?Instructions ?Recorded ?Confirmed ?Last Taken ?Type simvastatin 40 mg tablet (Zocor) 40 mg PO QPM #90 tabs 10/31/23 11/27/24 11/26/24 Rx aspirin 81 mg tablet,delayed 81 mg PO DAILY #90 tabs 12/20/23 11/27/24 11/27/24 Rx release cetirizine 10 mg tablet 10 mg PO DAILY 12/21/23 11/27/24 11/27/24 History fluticasone 100 mcg-salmeterol 50 1 inh inhalation BID PRN Shortness 06/03/24 11/27/24 Unknown History mcg/dose blistr powdr for Of Breath inhalation (Wixela Inhub) potassium citrate 99 mg capsule 99 mg PO DAILY 06/03/24 11/27/24 11/27/24 History hydrocodone 5 mg-acetaminophen 325 1 tab PO Q6H PRN pain #14 tabs 06/09/24 11/27/24 Unknown Rx mg tablet albuterol sulfate 90 mcg/actuation 2 puff inhalation Q4H PRN 09/01/24 11/27/24 Unknown History aerosol inhaler Shortness Of Breath Or Wheezing furosemide 20 mg tablet 20 mg PO QAM 09/01/24 11/27/24 11/27/24 History magnesium L-lactate 84 mg 84 mg PO BID #60 tabs 09/02/24 11/27/24 11/27/24 Rx tablet,extended release (Magtab) pantoprazole 40 mg tablet,delayed 40 mg PO DAILY #30 tabs 09/02/24 11/27/24 11/27/24 Rx release (Protonix) clopidogrel 75 mg tablet 75 mg PO DAILY #90 tabs 09/30/24 11/27/24 11/27/24 Rx isosorbide mononitrate 60 mg 60 mg PO DAILY #90 tabs 09/30/24 11/27/24 11/27/24 Rx tablet,extended release 24 hr metoprolol succinate 50 mg 50 mg PO DAILY #90 tabs 09/30/24 11/27/24 11/27/24 Rx tablet,extended release 24 hr sacubitril 49 mg-valsartan 51 mg 1 tab PO BID #90 tabs 09/30/24 11/27/24 11/27/24 Rx tablet (Entresto) escitalopram oxalate 10 mg tablet 10 mg PO DAILY 11/27/24 11/27/24 11/27/24 History ipratropium 0.5 mg-albuterol 3 mg 2.5 ml inhalation QID PRN 11/27/24 11/27/24 Unknown History (2.5 mg base)/3 mL nebulization Shortness Of Breath soln metformin 500 mg tablet 500 mg PO BID 11/27/24 11/27/24 11/27/24 History Allergies Allergy/AdvReac Type Severity Reaction Status Date / Time milk Allergy Severe ALGY-Difficulty Verified 09/16/24 12:59 Breathing PFSH Acute PFSH: Medical History (Updated 11/27/24 @ 16:52 by Zeb Conte MD) Morbid obesity Premature ventricular contractions Aberrant right subclavian artery Heart failure with improved ejection fraction (HFimpEF) Benign hypertension History of smoking 25-50 pack years CHF (congestive heart failure), NYHA class II Coronary artery disease STEMI (ST elevation myocardial infarction) Surgical History Presence of stent in LAD coronary artery Social History Smoking and tobacco/nicotine status: former use of tobacco/nicotine Data 11/27/24 05:56 11/27/24 05:56 A&P Assessment and plan (1) Coronary artery disease: Qualifiers: Associated angina: without angina Coronary Disease-Associated Artery/Lesion type: [place] artery [place] vs. transplanted heart: [place] heart Qualified Code(s): I25.10 - Atherosclerotic heart disease of [place] coronary artery without angina pectoris (2) CHF (congestive heart failure), NYHA class II: Qualifiers: Congestive heart failure chronicity: acute on chronic Congestive heart failure type: systolic Qualified Code(s): I50.23 - Acute on chronic systolic (congestive) heart failure (3) Atherosclerotic heart disease of [place] coronary artery with other forms of angina pectoris: (4) Benign hypertension: (5) Dyslipidemia: Plan Patient is high risk for acute coronary syndrome, she had more than 2 episodes of chest pain in the last few days now pain is coming back at rest it exactly feels like when she had her stents given her prior history of stents increasing frequency duration the chest pain we will proceed with left heart cath in the morning. Will continue to monitor on telemetry with serial cardiac markers, continue aspirin statin beta-travon anticoagulation and nitroglycerin Proceed with left heart cath in the morning. Patient will be n.p.o. overnight Thank you for allowing us to care for this very pleasant 49 year old female. PDMP PDMP Reviewed: Not Reviewed Coding Level of Care Code Acute Code for Chg Fwd Diagnoses Coronary artery disease involving [place] coronary artery of [place] heart without angina pectoris I25.10 Associated angina: without angina Coronary Disease-Associated Artery/Lesion type: [place] artery [place] vs. transplanted heart: [place] heart Acute on chronic systolic congestive heart failure, NYHA class 2 I50.23 Congestive heart failure chronicity: acute on chronic Congestive heart failure type: systolic Atherosclerotic heart disease of [place] coronary artery with other forms of angina pectoris I25.118 Benign hypertension I10 Dyslipidemia E78.5
[2024-11-27] MEDS: atorvastatin 40 mg Tablet 20 MG PO (20:12)
[2024-11-27] MEDS: sacubitril/valsartan 24-26 mg Tablet 2 EACH PO (20:12)
[2024-11-27] MEDS: docusate sodium 100 mg Capsule PO (20:12)
[2024-11-27 20:33] LABS: Glucose Point of Care 119 mg/dL (70-110)
--- NOTE | 2024-11-28 02:26 | ECG_ITS ---
[facility]: 2024[facility]28 Pat Name: Natacha Romano Department: Room: 111 Gender: Female Configuration Analyst: : 1975 Requested By: Kanu Encinas Order Number: [id number] Niki MD: Baltazar Jackman M.D. Measurements Intervals [place] Rate: 55 P: 39 MT: 120 QRS: 50 QRSD: 105 T: 31 QT: 468 QTc: 451 Interpretive Statements SINUS BRADYCARDIA LOW QRS VOLTAGE IN PRECORDIAL LEADS [QRS DEFLECTION < 1.0 mV IN CHEST LEADS] ANTEROSEPTAL MYOCARDIAL INFARCTION , PROBABLY OLD [40+ ms Q WAVE IN V1-V4] Compared to ECG 11/27/2024 11:41:36 No significant changes Electronically Signed On 11-28-2024 18:13:23 CDT by Baltazar Jackman M.D. [email or web address]
[2024-11-28 05:10] VITALS: BP 101/56; PULSE 88; RESP 16; TEMP 36.9; O2SAT 94
[2024-11-28 05:50] LABS: Basophils % 0.5 %; Eosinophils # 0.1 10^3/uL (0.0-0.8); Eosinophils % 1.4 %; Lymphocytes # 2.6 10^3/uL (0.8-4.8); Lymphocytes % 33.9 %; Mean Corpuscular HGB Conc 33.5 g/dL (30-55); Mean Corpuscular Hemoglobin 31.3 pg (27-33); Mean Corpuscular Volume 93.4 fl (85-98); Mean Platelet Volume 9.8 fL (7.4-10.4); Monocytes # 0.5 10^3/uL (0.2-0.9); Monocytes % 6.7 %; Neutrophils # 4.43 10^3/uL (1.8-7.7); Neutrophils % 57.2 %; Nucleated Red Blood Cells % 0 %; Platelet Count 250 10^3/cmm (157-399); Red Blood Count 3.96 10^6/uL (3.85-5.65); Red Cell Distribution Width 13.6 % (12.1-15.1); White Blood Count 7.74 10^3/uL (3.29-11.43)
[2024-11-28 06:00] VITALS: PULSE 50
[2024-11-28 06:03] VITALS: BMI 49.3
[2024-11-28 06:06] LABS: Alanine Aminotransferase 14 U/L (0-33); Albumin Level 3.6 g/dL (3.5-5.2); Alkaline Phosphatase 75 U/L (35-105); Aspartate Amino Transferase 16 U/L (0-32); Blood Urea Nitrogen 13 mg/dL (6-20); Calcium 8.9 mg/dL (8.5-10.5); Carbon Dioxide 23 mmol/L (22-29); Chloride 105 mmol/L (98-107); Creatinine Clr Calc Pharmacy 170.3616; Globulin 2.7 g/dL (1.3-4.6); Glomerular Filtration Rate 106.7 mL/min (90-130); Glucose 110 mg/dL (65-115); Magnesium 1.7 mg/dL (1.7-2.3); Osmolality Calculated 283 mOsm/kg (285-295); Phosphorus 2.9 mg/dL (2.5-4.5); Sodium 136 mmol/L (136-145); Total Bilirubin 0.3 mg/dL (0.15-1.2); Total Protein 6.3 g/dL (6.6-8.7)
[2024-11-28 06:13] LABS: Chol HDL Ratio 3.29 mg/dL (0.0-4.40); Cholesterol 168 mg/dL (0-200); HDL Cholesterol 51 mg/dL (60-100); Triglycerides 446 mg/dL (0-150)
[2024-11-28 06:26] LABS: LDL Cholesterol Direct 74 mg/dL (0-100)
[2024-11-28 06:27] VITALS: BMI 49.1
[2024-11-28 07:07] LABS: Glucose Point of Care 117 mg/dL (70-110)
[2024-11-28] MEDS: pantoprazole DR 40 mg Tablet PO (08:46)
[2024-11-28] MEDS: sacubitril/valsartan 24-26 mg Tablet 2 EACH PO (08:46)
[2024-11-28] MEDS: aspirin 81 mg EC Tablet PO (08:46)
[2024-11-28] MEDS: clopidogrel 75 mg Tablet PO (08:46)
[2024-11-28] MEDS: escitalopram 10 mg Tablet PO (08:46)
[2024-11-28] MEDS: docusate sodium 100 mg Capsule PO (08:46)
[2024-11-28] MEDS: heparin 5,000 unit/mL INJ 1 mL 5000 UNIT SUBCUT (08:47)
[2024-11-28 09:24] VITALS: BP 109/64; PULSE 59; RESP 13; TEMP 37; O2SAT 98
[2024-11-28 11:08] LABS: Glucose Point of Care 112 mg/dL (70-110)
[2024-11-28 12:00] VITALS: BP 128/79; PULSE 63; RESP 22; TEMP 36.9; O2SAT 97
--- NOTE | 2024-11-28 13:24 | PM.DCS ---
Discharge Providers Date of Admission: 11/27/24 12:34 Date of Discharge: November 28, 2024 Attending Provider at Admission: Radha Ca MD Attending Provider at Discharge: Zeb Conte MD Consults: Cardiology: Dr. Encinas Primary Care Provider: Yulisa De La Cruz Diagnoses at Discharge Discharge Diagnosis (1) Atherosclerotic heart disease of [place] coronary artery with other forms of angina pectoris: Status: Acute (2) Coronary artery disease: Status: Acute Qualifiers: Associated angina: without angina Coronary Disease-Associated Artery/Lesion type: [place] artery [place] vs. transplanted heart: [place] heart Qualified Code(s): I25.10 - Atherosclerotic heart disease of [place] coronary artery without angina pectoris (3) Heart failure with improved ejection fraction (HFimpEF): Status: Acute (4) Benign hypertension: Status: Acute (5) Morbid obesity: Status: Acute Reason for Visit Reason for Visit: CP pressure bout passed out sob Hospital Course Hospital Course Natacha Romano is a 49 year old female past medical history of hyperlipidemia, type 2 diabetes mellitus on OHA, CAD post PCI to LAD, ischemic cardiomyopathy with EF of 45% with last angiogram from November 2023 showing patent stent present to the ER today with complaining of chest pain and dizziness which started when she woke up in the morning. She had chest tightness radiating to the left side of her neck similar to her SC in the past. She states she has been compliant with her medications. Denies any changes in her medications but does give history of dental surgery recently for an abscess. Given her significant past medical history of recurrent chest pain, requiring cardiac angiogram within the last 1 year, chest pain being similar to her pain during acute SC plan was to take patient for can take angiogram on 11/28. During hospitalization her troponin levels remain negative. Patient remained chest pain-free during hospitalization both at rest and exertion though did have 1 episode of VPC. Patient was hesitant of getting a cardiac angiogram. As she remained chest pain-free, hemodynamically stable, had negative troponin cycled she has been discharged in hemodynamically stable condition on maximizing antianginal treatment. Sublingual nitro is also being prescribed. She is to follow-up with cardiology team as an outpatient for further workup with a possible cardiac stress test. Physical Exam Narrative: General: No acute distress, AO x3 HEENT: PERRLA, pupils bilaterally equal and reactive Chest: Normal vesicular breath sounds, no added sounds, equal good air entry bilaterally CVS: S1-S2 regular, no murmurs, no tachycardia, no gallops, no rubs Abdomen: Soft, nontender, no organomegaly, bowel sounds present Neuro: No focal deficits, no facial deformity, AO x3, power 5/5 in all limbs Discharge Data Studies Completed and Pending Completed Studies During Hospitalization Category Date Time Status XR chest 1V portable [id number] Stat Exams 11/27/24 05:57 Completed Pending at discharge Category Date Time Status Cardiac Stress Test MIBI [S[place]am[place] Stress Test Request Exams 11/27/24 16:59 Stop Req ] Routine Complete Blood Count w/Auto AM LABS Lab 11/29/24 04:00 Ordered Complete Blood Count w/Auto AM LABS Lab 11/30/24 04:00 Ordered Comprehensive Metabolic Panel AM LABS Lab 11/29/24 04:00 Ordered Comprehensive Metabolic Panel AM LABS Lab 11/30/24 04:00 Ordered Magnesium AM LABS Lab 11/29/24 04:00 Ordered Magnesium AM LABS Lab 11/30/24 04:00 Ordered Phosphorus AM LABS Lab 11/29/24 04:00 Ordered Phosphorus AM LABS Lab 11/30/24 04:00 Ordered NM walker perf SPECT r/s* [id number] Routine Nuc Med 11/30/24 16:59 Ordered CV. echo complete* [id number] Routine Ultrasound 11/28/24 16:02 Taken Radiology Impressions Chest X-Ray 11/27/24 05:57 IMPRESSION: No acute findings. Laboratory Results WBC 7.74 10^3/uL (3.29-11.43) 11/28/24 05:16 RBC 3.96 10^6/uL (3.85-5.65) 11/28/24 05:16 Hgb 12.40 g/dL (11.27-16.99) 11/28/24 05:16 Hct 37.0 % (36-47) 11/28/24 05:16 MCV 93.4 fl (85-98) 11/28/24 05:16 MCH 31.3 pg (27-33) 11/28/24 05:16 MCHC 33.5 g/dL (30-55) 11/28/24 05:16 RDW 13.6 % (12.1-15.1) 11/28/24 05:16 Plt Count 250 10^3/cmm (157-399) 11/28/24 05:16 MPV 9.8 fL (7.4-10.4) 11/28/24 05:16 Neut % (Auto) 57.2 % 11/28/24 05:16 Lymph % (Auto) 33.9 % 11/28/24 05:16 [place] % (Auto) 6.7 % 11/28/24 05:16 Eos % (Auto) 1.4 % 11/28/24 05:16 Baso % (Auto) 0.5 % 11/28/24 05:16 Neut # (Auto) 4.43 10^3/uL (1.8-7.7) 11/28/24 05:16 Lymph # (Auto) 2.6 10^3/uL (0.8-4.8) 11/28/24 05:16 [place] # (Auto) 0.5 10^3/uL (0.2-0.9) 11/28/24 05:16 Eos # (Auto) 0.1 10^3/uL (0.0-0.8) 11/28/24 05:16 Baso # (Auto) 0.0 10^3/uL (0.0-0.1) 11/28/24 05:16 Nucleated RBC % (auto) 0 % 11/28/24 05:16 Nucleated RBCs # 0.0 /100WBC 11/28/24 05:16 Sodium 136 mmol/L (136-145) 11/28/24 05:16 Potassium 4.0 mmol/L (3.5-5.1) 11/28/24 05:16 Chloride 105 mmol/L (98-107) 11/28/24 05:16 Carbon Dioxide 23 mmol/L (22-29) 11/28/24 05:16 Anion Gap 12.0 (5-19) 11/28/24 05:16 BUN 13 mg/dL (6-20) 11/28/24 05:16 Creatinine 0.6 mg/dL (0.5-0.9) 11/28/24 05:16 GFR Calculation 106.7 mL/min (90-130) 11/28/24 05:16 Glucose 110 mg/dL (65-115) 11/28/24 05:16 POC Glucose 112 mg/dL (70-110) H 11/28/24 11:01 Estimat Average Glucose 131 11/27/24 05:56 Hemoglobin A1c 6.2 % (4.0-6.0) H 11/27/24 05:56 Calculated Osmolality 283 mOsm/kg (285-295) L 11/28/24 05:16 Calcium 8.9 mg/dL (8.5-10.5) 11/28/24 05:16 Phosphorus 2.9 mg/dL (2.5-4.5) 11/28/24 05:16 Magnesium 1.7 mg/dL (1.7-2.3) 11/28/24 05:16 Total Bilirubin 0.3 mg/dL (0.15-1.2) 11/28/24 05:16 AST 16 U/L (0-32) 11/28/24 05:16 ALT 14 U/L (0-33) 11/28/24 05:16 Alkaline Phosphatase 75 U/L (35-105) 11/28/24 05:16 Troponin T Baseline 7 ng/L (0-10) 11/27/24 05:56 Troponin T 120 Minute 10.73 ng/L (0-10) H 11/27/24 07:51 Delta Troponin T 3.73 ABS# (0-10) 11/27/24 07:51 Troponin T Hi Sens 6Hr 8.17 ng/L (0-10) 11/27/24 11:51 Troponin T Hi Sens 6Hr Delta 1.17 ng/L (0-12) 11/27/24 11:51 C-Reactive Protein 7.8 mg/L (0.0-4.9) H 11/27/24 05:56 NT-Pro-B Natriuret Pep 256 pg/mL (0-125) H 11/27/24 05:56 Total Protein 6.3 g/dL (6.6-8.7) L 11/28/24 05:16 Albumin 3.6 g/dL (3.5-5.2) 11/28/24 05:16 Globulin 2.7 g/dL (1.3-4.6) 11/28/24 05:16 Triglycerides 446 mg/dL (0-150) H 11/28/24 05:16 Cholesterol 168 mg/dL (0-200) 11/28/24 05:16 LDL Cholesterol Direct 74 mg/dL (0-100) 11/28/24 05:16 LDL Cholesterol, Calc Not Reportable 11/28/24 05:16 HDL Cholesterol 51 mg/dL (60-100) L 11/28/24 05:16 LDL/HDL Ratio Not Reportable 11/28/24 05:16 Cholesterol/HDL Ratio 3.29 mg/dL (0.0-4.40) 11/28/24 05:16 Vitals Last Vital Signs Temp 98.4 F 11/28/24 12:00 Pulse 63 11/28/24 12:00 Resp 22 H 11/28/24 12:00 BP 128/79 11/28/24 12:00 Pulse Ox 97 11/28/24 12:00 O2 Del Method Room Air 11/28/24 12:00 Discharge Plan Discharge Patient Disposition: Home Condition: Stable Prescriptions: New nitroglycerin 0.3 mg tablet, sublingual 0.3 mg sublingual Q5M PRN (Reason: chest pain) Qty: 20 0RF Rx Instructions: do not exceed 3 doses per episode Continued potassium citrate 99 mg capsule 99 mg PO DAILY fluticasone propion-salmeterol [Wixela Inhub] 100-50 mcg/dose blister with device 1 inh inhalation BID PRN (Reason: Shortness Of Breath) Zocor 40 mg tablet 40 mg PO QPM Qty: 90 3RF aspirin 81 mg tablet,delayed release (DR/EC) 81 mg PO DAILY Qty: 90 3RF clopidogrel 75 mg tablet 75 mg PO DAILY Qty: 90 3RF isosorbide mononitrate 60 mg tablet extended release 24 hr 60 mg PO DAILY Qty: 90 3RF metoprolol succinate 50 mg tablet extended release 24 hr 50 mg PO DAILY Qty: 90 3RF sacubitril-valsartan [Entresto] 49-51 mg tablet 1 tab PO BID Qty: 90 3RF metformin 500 mg tablet 500 mg PO BID ipratropium-albuterol 0.5 mg-3 mg(2.5 mg base)/3 mL solution for nebulization 2.5 ml INHALATION QID PRN (Reason: Shortness Of Breath) escitalopram oxalate 10 mg tablet 10 mg PO DAILY cetirizine 10 mg tablet 10 mg PO DAILY hydrocodone-acetaminophen 5-325 mg tablet 1 tab PO Q6H PRN (Reason: pain) Qty: 14 0RF albuterol sulfate 90 mcg/actuation HFA aerosol inhaler 2 puff INHALATION Q4H PRN (Reason: Shortness Of Breath Or Wheezing) furosemide 20 mg tablet 20 mg PO QAM magnesium L-lactate [Magtab] 84 mg Tablet Extended Release 84 mg PO BID Qty: 60 0RF pantoprazole [Protonix] 40 mg tablet,delayed release (DR/EC) 40 mg PO DAILY Qty: 30 0RF Discharge Orders: Discharge Order (Routine); Ordered 11/28/24 Ordered By: Zeb Conte Referrals: Yulisa De La Cruz PA [Primary Care Provider] - 7-10 days Dara Thompson NP [Nurse Practitioner] - 2 weeks Discharge Diet: Usual diet Discharge Activity: Resume usual activity Patient Instructions: Opioid Safety, Pain Management Discharge Attestations Time Spent in Discharge Care*: greater than 30 min Specific Discharge Activities: educating patient, educating and/or supporting family/caregiver, discussing with pcp/other providers, discussing with field nurse case manager/social workers/dc planners, documenting/other paperwork and evaluating patient/reviewing data Status at Discharge: Cognitive status at discharge: cognitively intact, Behavioral status at discharge: cooperative, Functional status at discharge: independent ambulation, Overall status at discharge: patient is back to baseline Quality Metrics Clinical Quality Measures [ No reported AMI, CVA or VTE this stay] Coding Level of Care Code 25105 Total time (in minutes) for Discharge: 60 Diagnoses Atherosclerotic heart disease of [place] coronary artery with other forms of angina pectoris I25.118 Coronary artery disease involving [place] coronary artery of [place] heart without angina pectoris I25.10 Associated angina: without angina Coronary Disease-Associated Artery/Lesion type: [place] artery [place] vs. transplanted heart: [place] heart Heart failure with improved ejection fraction (HFimpEF) I50.32 Benign hypertension I10 Morbid obesity E66.01
--- NOTE | 2024-11-28 13:46 | P.PN_ITS ---
Subjective 2 Subjective: Patient denies any chest pain. She is negative with troponin, no EKG changes. Today she has given me detailed interview letting me know that she actually had only 2 episodes of chest pressure she thinks it is was nonexertional, she thinks she was under a lot of stress, she would like to wait to see and be treated medically. Vitals/I&O/Wt Last Vital Signs Temp 98.4 F 11/28/24 12:00 Pulse 63 11/28/24 12:00 Resp 22 H 11/28/24 12:00 BP 128/79 11/28/24 12:00 Pulse Ox 97 11/28/24 12:00 O2 Del Method Room Air 11/28/24 12:00 11/27/24 11/28/24 11/28/24 22:59 06:59 14:59 Intake Total 480 / 480 240 / 240 Balance 480 / 480 240 / 240 Weight last 48 hrs Weight 313 lb 7.957 oz Weight 315 lb Weight 315 lb Weight 315 lb Physical Exam 2 Const: OTHER: GENERAL: Patient is alert, awake and oriented x3. HEART: Regular S1 and S2. No murmur, rub or gallop. LUNGS: Clear to auscultate bilaterally. CENTRAL NERVOUS SYSTEM: Grossly nonfocal. EXTREMITIES: Lower extremities with out edema bilaterally. Data 11/28/24 05:16 11/28/24 05:16 A&P Assessment and plan (1) Coronary artery disease: Qualifiers: Coronary Disease-Associated Artery/Lesion type: [place] artery [place] vs. transplanted heart: [place] heart Associated angina: without angina Q ualified Code(s): I25.10 - Atherosclerotic heart disease of [place] coronary artery without angina pectoris (2) CHF (congestive heart failure), NYHA class II: Qualifiers: Congestive heart failure type: systolic Congestive heart failure chronicity: acute on chronic Qualified Code(s): I50.23 - Acute on chronic systolic (congestive) heart failure (3) Atherosclerotic heart disease of [place] coronary artery with other forms of angina pectoris: (4) Benign hypertension: (5) Dyslipidemia: Plan Since patient does not have any more chest pain blood pressure is under control, it is possible she may have coronary spasm she has been ruled out for acute coronary syndrome no further episode happens at this point we will discontinue further order for left heart cath or stress test. Patient can be released and go home advised to continue medical management and take nitroglycerin if needed if she has any more chest pain she can always come back to the hospital. Continue aspirin statin beta-travon isosorbide mononitrate and as needed basis nitroglycerin. Will plan to follow her up in the cardiology clinic for the plan be devised then. From a cardiovascular perspective patient can be discharged home. Patient and family are in agreement and would like to proceed that route not interested in further testing. PDMP PDMP Reviewed: Not Reviewed Attestations 2 Medical Necessity Statement*: Patient can be discharged home if okay with medicine Coding Level of Care Code Acute Code for Chg Fwd Diagnoses Coronary artery disease involving [place] artery of [place] heart without angina pectoris I25.10 Coronary Disease-Associated Artery/Lesion type: [place] artery [place] vs. transplanted heart: [place] heart Associated angina: without angina Acute on chronic systolic congestive heart failure, NYHA class 2 I50.23 Congestive heart failure type: systolic Congestive heart failure chronicity: acute on chronic Atherosclerotic heart disease of [place] coronary artery with other forms of angina pectoris I25.118 Benign hypertension I10 Dyslipidemia E78.5
--- NOTE | 2024-11-28 16:02 | USCV_ITS ---
Natacha Romano Age: 49 Gender: F : 1975 Exam Date: 11/28/2024 07:58 Ordering Phys: Zeb Conte MD Technologist: Delonte Nguyen Exam Location: [facility] [place] Indication: unstable angina BP: 101 / 56 HR: 48 Rhythm: Sinus Technical Quality: Adequate MEASUREMENTS (Male / Female) Normal Values 2D ECHO LVOT Diameter 2.0 cm LV Ejection Fraction MOD 4C 66.9 % LV Ejection Fraction MOD 2C 67.9 % LV Ejection Fraction 2C AL 67.1 % LA Diameter 4.0 cm RA Systolic Volume 4C AL 49.0 ml RA Systolic Volume 4C MOD 51.2 ml LA Sys Volume AL 57.9 cm cubed LA Sys Volume Index AL 21.7 cm cubed/m squared Aorta at Sinotubular Diameter 2.4 cm IVC Diameter 1.5 cm M-MODE LA Ao Ratio MM 1.6 AV Cusp Separation MM 1.1 cm DOPPLER AV Peak Velocity 118.7 cm/s LVOT Peak Velocity 69.0 cm/s AV Area Cont Eq vti 1.9 cm squared AV Area Cont Eq pk 1.9 cm squared MV Peak Velocity 102.0 cm/s MV Area PHT 5.7 cm squared Mitral E to A Ratio 1.5 TV Peak Velocity 138.0 cm/s TR Peak Velocity 143.0 cm/s TR Peak Gradient 8.2 mmHg TR Mean Velocity 119.0 cm/s TR Mean Gradient 5.9 mmHg TR Velocity Time Integral 45.7 cm PV Peak Velocity 88.5 cm/s RV Ejection Time 0.3 s FINDINGS Left Ventricle Moderately increased left ventricular cavity size. Moderately decreased left ventricular systolic function. Left ventricular ejection fraction is estimated at 40%. Mid to distal anterior septal apical and mid to distal lateral wall akinesis suggestive of ischemic cardiomyopathy.Grade II/IV diastolic dysfunction, moderately elevated filling pressures. Right Ventricle The right ventricle is normal in size and function. Right Atrium The right atrium is normal in size. Left Atrium The left atrium is normal in size. Mitral Valve Mildly thickened mitral valve. No mitral valve stenosis. Mild- moderate mitral valve regurgitation. Aortic Valve Structurally normal aortic valve without significant sclerosis or stenosis. There is no aortic regurgitation. Tricuspid Valve Structurally normal tricuspid valve without significant stenosis or regurgitation. Pulmonary artery systolic pressure is normal. Pulmonic Valve Pulmonic valve not well visualized. Pericardium Normal pericardium without effusion. Aorta Normal ascending aorta dimension. IVC The inferior vena cava appears normal. CONCLUSIONS Moderately increased left ventricular cavity size. Moderately decreased left ventricular systolic function. Left ventricular ejection fraction is estimated at 40%. Mid to distal anterior septal apical and mid to distal lateral wall akinesis suggestive of ischemic cardiomyopathy.Grade II/IV diastolic dysfunction, moderately elevated filling pressures. Mildly thickened mitral valve. No mitral valve stenosis. Mild- moderate mitral valve regurgitation. There is no pericardial effusion. Right atrial pressure is around 5 mm of mercury. Kanu Encinas MD (Electronically Signed) Final Date: 28 November 2024 17:04 S
== END 2024-11-28 14:30 | disposition home or self-care (01) ==
LOC: ER 09:10 → ER IP 12:34 → CSU 19:58
PROVIDERS: Emergency Medicine; Admitting Provider Student in an Organized Health Care Education/Training Program; Emergency Provider Family Medicine; PCP Physician Assistant; Visit Provider Student in an Organized Health Care Education/Training Program
DX: I25.118 Atherosclerotic heart disease of native coronary artery with other forms of angina pectoris (principal); I11.0 Hypertensive heart disease with heart failure; I50.23 Acute on chronic systolic (congestive) heart failure; E66.01 Morbid (severe) obesity due to excess calories; Z68.42 Body mass index [BMI] 45.0-49.9, adult; E78.5 Hyperlipidemia, unspecified; E11.9 Type 2 diabetes mellitus without complications; Z95.5 Presence of coronary angioplasty implant and graft; Z79.82 Long term (current) use of aspirin; Z79.84 Long term (current) use of oral hypoglycemic drugs; K21.9 Gastro-esophageal reflux disease without esophagitis; Q27.8 Other specified congenital malformations of peripheral vascular system; I25.5 Ischemic cardiomyopathy; Z86.79 Personal history of other diseases of the circulatory system
CPT/HCPCS: 36415; 36416; 71045; 80053; 80061; 82962; 83036; 83721; 83735; 83880; 84100; 84484; 85025; 86140; 93005; 93306; 94664; 96360; 96361; 96372; 99285; G0378; J1644; J2250; J3010; J3490; J9999

== ENCOUNTER 2025-01-19 08:48 | Outpatient (CLI) | payer BC, SELFPAY ==
[2025-01-19 09:14] VITALS: PULSE 77; RESP 18; O2SAT 97
[2025-01-19] MEDS: albuterol 2.5 mg/3 mL Neb INHALATION (09:14)
== END 2025-01-19 08:49 | disposition home or self-care (01) ==
PROVIDERS: PCP Physician Assistant; Visit Provider Physician Assistant
DX: R06.02 Shortness of breath (principal)
CPT/HCPCS: 94060; 94726; 94729; J7613

== ENCOUNTER 2025-01-21 20:00 | Outpatient (CLI) | payer BC, SELFPAY | END 2025-01-21 20:01 | disposition home or self-care (01) | LOC: SLEEP 23:02 | PROVIDERS: PCP Physician Assistant; Referring Provider Physician Assistant; Visit Provider Internal Medicine Pulmonary Disease | DX: G47.33 Obstructive sleep apnea (adult) (pediatric) (principal); G47.36 Sleep related hypoventilation in conditions classified elsewhere | CPT/HCPCS: 95810 ==

== ENCOUNTER 2025-03-29 19:54 | Outpatient (CLI) | payer BC, SELFPAY | END 2025-03-29 19:55 | disposition home or self-care (01) | LOC: SLEEP 19:55 | PROVIDERS: PCP Physician Assistant; Referring Provider Physician Assistant; Visit Provider Internal Medicine Pulmonary Disease | DX: G47.33 Obstructive sleep apnea (adult) (pediatric) (principal) | CPT/HCPCS: 95811 ==

== ENCOUNTER 2025-07-28 14:16 | Outpatient (CLI) | payer BC, SELFPAY ==
--- NOTE | 2025-07-28 14:22 | MM_ITS ---
WS: [id number] BILATERAL 3D TOMOSYNTHESIS DIGITAL SCREENING MAMMOGRAPHY WITH CAD CLINICAL INFORMATION: SCREENING HISTORY: Screening mammogram. No current complaints. COMPARISON: 2022 TECHNIQUE: Bilateral CC and MLO views. FINDINGS: Scattered fibroglandular densities bilaterally. No suspicious focal mass, asymmetry, calcifications, or architectural distortion. No evidence of malignancy. MM/MM scr BI tomosynthesis [id number] IMPRESSION: DENSITY: There are scattered areas of fibroglandular density. BI-RADS: 1 - Negative. FOLLOW UP: 1 Year Follow-up Recommend return to annual screening mammography.
== END 2025-07-28 14:17 | disposition home or self-care (01) ==
LOC: RAD 14:18
PROVIDERS: PCP Physician Assistant; Visit Provider Physician Assistant
DX: Z12.31 Encounter for screening mammogram for malignant neoplasm of breast (principal); R92.323 Mammographic fibroglandular density, bilateral breasts
CPT/HCPCS: 77063; 77067